=== PATIENT | female | born 1955 | race Caucasian/White ===

== ENCOUNTER 2024-06-19 17:27 | Emergency (ER) | payer MEDICARE, SELFPAY ==
--- OUTSIDE RECORDS SUMMARY | 2024-06-19 17:30 | XMS_ITS | Patient Health Summary ---
Author Organization [facility] Address [address] [place] [address] Care Team Providers Care Card Feeder Name Role Phone Zainab Anna DO Primary Care Provider [phone] Note from [facility],non-owned Affiliates and Associated Physician Practices is amultiple site organization consisting of ambulatory clinics and hospital sitesin [place], [place], [place] and [place]. This disclosure is being madepursuant to the Care Everywhere program and may not contain all information available regarding this patient. Last updated 18.[facility] Allergies * Cefuroxime(Rash) -Medium Criticality * Latex(Swelling) * Levofloxacin(Itching) -Medium Criticality * Levalbuterol Hcl(Other) Medications * Be aware that medications may not be up to date on this document. Alwaysverify current medications with the patient. * zolpidem (AMBIEN) 10 MG tablet Take 10 mg by mouth nightly as needed for Insomnia * fluticasone-vilanterol (BREO ELLIPTA) 200-25 MCG/INH inhaler Inhale 1 puff by mouth once daily * mometasone (NASONEX) 50 MCG/ACT nasal spray [employer] 1 spray into each nostril 2 times daily * amiodarone (CORDARONE) 200 MG tablet Take 200 mg by mouth 2 times daily * apixaban (ELIQUIS) 5 MG tablet Take 5 mg by mouth 2 times daily * tiotropium (SPIRIVA) 18 MCG inhalation capsule Inhale 1 capsule by mouth once daily * PARoxetine (PAXIL) 40 MG tablet Take 40 mg by mouth once daily * pravastatin (PRAVACHOL) 40 MG tablet Take 40 mg by mouth at bedtime * dilTIAZem coated beads 24hr (CARTIA XT) 300 MG capsule Take 300 mg by mouth once daily * clonazePAM (KLONOPIN) 0.5 MG tablet Take 0.5 mg by mouth at bedtime * albuterol (PROVENTIL;VENTOLIN) (5 MG/ML) 0.5% nebulizer solution Inhale 2.5 mg by mouth 4 times daily as needed for Shortness of Breath or Wheezing 2.5/3ml * benralizumab (FASENRA) injection Inject 30 mg subcutaneously once Social History Tobacco Use Types Packs/Day Years Used Date Smoking Tobacco: Never Assessed Sex and Gender Information Value Date Recorded Sex Assigned at Not on file Gender Identity Not on file Sexual Orientation Not on file Last Filed Vital Signs Vital Sign Reading Time Taken Comments Blood Pressure 112/67 05/14/2020 9:10 AM OUTREACH COUNSELOR Pulse 65 05/14/2020 9:10 AM OUTREACH COUNSELOR Temperature 37.2 ??C (98.9 ??F) 05/14/2020 8:20 AM CS T Respiratory Rate 16 05/14/2020 9:10 AM OUTREACH COUNSELOR Oxygen Saturation 98% 05/14/2020 9:10 AM OUTREACH COUNSELOR Inhaled Oxygen Concentration - - Weight 148.1 kg (326 lb 6.4 oz) 05/14/2020 8:20 AM OUTREACH COUNSELOR Height 170.2 cm (5' 7 ) 05/14/2020 8:20 AM OUTREACH COUNSELOR Body Mass Index 51.12 05/14/2020 8:20 AM OUTREACH COUNSELOR Procedures * CARDIAC PROCEDURE ORDER(Performed 05/15/2020) * CARDIAC RHYTHM STRIP ORDER(Performed 05/15/2020) * CARDIAC EKG ORDER(Performed 05/15/2020) * EKG 12-LEAD(Performed 05/14/2020) Performed for Persistent atrial fibrillation (HCC) * CARDIAC CATH(Performed 05/14/2020) * CARDIAC CATH CONSULT(Performed 05/14/2020) * GROSS + MICRO EXAM(Performed 06/24/1998) Results * CARDIAC RHYTHM STRIP ORDER (05/15/2020 6:41 PM OUTREACH COUNSELOR) Narrative 05/15/2020 6:41 PM OUTREACH COUNSELOR Ordered by an unspecified provider. Scanned Document CARDIAC SERVICES ORD ERABLES * CARDIAC PROCEDURE ORDER (05/15/2020 6:41 PM OUTREACH COUNSELOR) Narrative 05/15/2020 6:41 PM OUTREACH COUNSELOR Ordered by an unspecified provider. Scanned Document CARDIAC SERVICES ORD ERABLES * CARDIAC EKG ORDER (05/15/2020 6:41 PM OUTREACH COUNSELOR) Narrative 05/15/2020 6:41 PM OUTREACH COUNSELOR Ordered by an unspecified provider. Scanned Document CARDIAC SERVICES ORD ERABLES * EKG 12-LEAD (05/14/2020 8:33 AM OUTREACH COUNSELOR) Ventricular Rate 73 BPM [facility] Atrial Rate 73 BPM [facility] P-R Interval 204 ms [facility] QRS Duration ms 90 ms [facility] Q-T Interval ms 456 ms [facility] QTC Calculation (Bezet) 502 ms [facility] Calculated P Leonard 47 degrees [facility] Calculated R Leonard 54 degrees [facility] Calculated T Leonard 57 degrees [facility] Interpretation EKG Normal sinus rhythm Nonspecific ST abnormality Prolonged QT Abnormal ECG No previous ECGs available Confirmed by MORRIS AKINS MD ([id number]) on 05/15/2020 10:20:17 AM [facility] MUSE 05/14/2020 8:33 AM OUTREACH COUNSELOR 05/15/2020 10:20 AM OUTREACH COUNSELOR Brody Kemp DO ECG ORDERABLES Performing Organization Address [facility] Co de Phone Number [facility] MUSE * CARDIAC CATH PROCEDURE (05/14/2020 8:31 AM OUTREACH COUNSELOR) Narrative [facility] MEDQUIST - 05/14/2020 8:31 AM OUTREACH COUNSELOR Brody Kemp, DO ? 05/14/2020 ??8:32 AM 200 J synch via paddles, successful to sinus rhythm No complications Brody Kemp DO CARDIAC SERVICES ORDERABLES Performing Organization Address City/[facility]/ZIP Co de Phone Number [facility] * CARDIAC CATH CONSULT (for Epic Reporting) (05/14/2020 8:15 AM OUTREACH COUNSELOR) 05/14/2020 8:15 AM OUTREACH COUNSELOR Narrative [facility] - 05/14/2020 8:31 AM OUTREACH COUNSELOR Brody Kemp, DO ? 05/14/2020 ??8:32 AM 200 J synch via paddles, successful to sinus rhythm No complications Brody Kemp DO ECHO ORDERABLES [facility] * GROSS + MICRO EXAM (06/24/1998 12:00 AM OUTREACH COUNSELOR) Result CASE NUMBER [id number] Comment: ORDERING PHYSICIAN ??BRADEN LOBO SPECIMEN TYPE ?Colon,Biopsy-left Surgeon ?BRADEN LOBO M.D. Gross Exam ? DR. ANNE CHA M.D. Gross Report ? INDICATION FOR PROCEDURE ??ABDOMINAL PAIN OPERATION ??COLONOSCOPY SPECIMEN ??LEFT COLON, RIGHT COLON GROSS TWO CONTAINERS. 1. THE SPECIMEN IS RECEIVED IN A CONTAINER LABELED LEFT COLON. THE SPECIMEN CONSISTS OF THREE GREENBERG SOFT PIECES OF TISSUE EACH MEASURING 2 X 2 X 1 MM. THE SPECIMEN IS ALL SUBMITTED IN CASSETTE A. 2. THE SPECIMEN IS RECEIVED IN A CONTAINER LABELED RIGHT COLON. THE SPECIMEN CONSISTS OF SINGLE GREENBERG SOFT PIECE OF TISSUE WHICH MEASURES 2 X 2 X 1 MM. ??THE SPECIMEN IS ALL SUBMITTED IN CASSETTE B. [facility] MICROSCOPIC EXAM ? MICROSCOPIC ?? 1. SECTIONS FROM THE LEFT COLONIC BIOPSIES DISPLAY STRAIGHT TUBULAR GLANDS WITH HYPERCHROMATIC NUCLEI AND LOSS OF THE GOBLET CELL POPULATION. 2. SECTIONS FROM THE RIGHT COLONIC BIOPSIES DISPLAY A MILD, MULTIFOCAL INCREASE IN THE CHRONIC INFLAMMATORY CELL POPULATION WITHIN THE LAMINA PROPRIA. CRYPT ARCHITECTURE IS INTACT. THERE ARE NO GRANULOMATOUS INFILTRATES OR CRYPT ABSCESSES. ULCERATION AND NEOPLASIA ARE ABSENT. DIAGNOSIS ? DIAGNOSIS [1] LEFT COLON, ENDOSCOPIC BIOPSIES ? - TUBULAR ADENOMA, WITH MILD ATYPIA [2] RIGHT COLON, ENDOSCOPIC BIOPSY ? - MILD, NON-SPECIFIC CHRONIC INFLAMM[place] [facility] [place] [id number] X2 Released By ?ANNE CHA MISCELLANEOUS SAMPLE S / Unknown 06/24/1998 06/24/1998 12:08 PM OUTREACH COUNSELOR Historical Provider MD LAB - PATHOLOGY/C YTOLOGY ORDERABLES Care Teams Card Feeder Relationship Specialty Start Date End Date Zainab Anna DO PCP - General Family Medicine 05/14/20
--- OUTSIDE RECORDS SUMMARY | 2024-06-19 17:30 | XMS_ITS | Clinical Summary ---
Author Organization 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 Note: Unchanged Female Pelvic Pain 11/05/2014 JEOL LEHMAN MD Active Last Documented On 11/05/2014 3:59PM ; [facility] Note: Unchanged Cervical Dysplasia 11/05/2014 JOEL LEHMAN MD Active Last Documented On 11/05/2014 3:59PM ; [facility] Note: Unchanged - with Dr Walton: in the 9 0's: colp/bx/cone bx/ then freezing: nl since then Colon Cancer 11/05/2014 JOEL DOLL MD Active Last Documented On 11/05/2014 3:59PM ; [facility] Note: Unchanged - in 2001: no chemo or r adiation Breast Fibrocystic Disease 11/05/2014 JOEL DOLL MD Active Last Documented On 11/05/2014 3:59PM ; [facility] Note: Unchanged 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 JOEL FERNÁNDEZ MD Active Last Documented On 11/05/2014 3:59PM ; [facility] Note: Unchanged Plan of Treatment No Plan of Treatment Recorded Assessments Includes: Assessments from this encounter No Assessments Recorded Medical Equipment - Implanted Devices Includes: Current Devices No Medical Equipment Recorded Medications Includes: Medications discussed during this encounter and other current Medications Current Medications (continue as prescribed) Albuterol Sulfate 1.25MG/3ML Inhalation Nebuliza tion solution 08/11/2017 Provider: Diagnosis: Last Documented On 8 10:27AM By MAMADOU BURKS ; [facility] Paxil 40MG Oral Tablet 03/01/2017 Provider: Diagnosis: Last Documented On 7 2:51PM By MAMADOU BURKS ; [facility] Breo Ellipta 200-25MCG/INH I nhalation Aerosol Powder Breath Activated 03/01/2017 Provider: Diagnosis: Last Documented On 7 2:52PM By MAMADOU BURKS ; [facility] Ambien 10MG Oral Tablet 03/01/2017 Provider: Diagnosis: Last Documented On 7 2:53PM By MAMADOU BURKS ; [facility] Bentyl 20MG Oral Tablet 03/01/2017 Provider: Diagnosis: takes 40mg Last Documented On 7 2:54PM By MAMADOU BURKS ; [facility] Vicodin 5-300MG Oral Tablet 03/01/2017 Provider: Diagnosis: Last Documented On 7 2:54PM By MAMADOU BURKS ; [facility] PriLOSEC OTC 20MG Oral Tablet Delayed Release 03/01/20 Provider: Diagnosis: Last Documented On 7 2:55PM By MAMADOU BURKS ; [facility] Mometasone Furoate 0.1% External Ointment 03/01/2017 Provider: Diagnosis: Last Documented On 7 2:56PM By MAMADOU BURKS ; [facility] Ibuprofen 600MG Oral Tablet 03/01/2017 Provider: Diagnosis: prn Last Documented On 7 2:56PM By MAMADOU BURKS ; [facility] PARoxetine HCl 40 MG Tablet 11/03/2014 Provider: Diagnosis: Last Documented On 5 2:48PM By NEGRITA COTTER LPN ; [facility] ALPRAZolam 0.5 MG Tablet 10/17/2014 Provider: Diagnosis: Last Documented On 5 2:48PM By NEGRITA COTTER LPN ; [facility] Pravastatin Sodium 40 MG Tablet 08/12/2014 Provider: Diagnosis: Last Documented On 5 2:48PM By NEGRITA COTTER LPN ; [facility] Medications Administered Includes: Administered Medications from this encounter No Administered Medications Recorded Results Includes: Results discussed during this encounter No Results Recorded For Specified Dates History of Present Illness Includes: History of Present Illness from this encounter No History of Present Illness Recorded Social History No Social History Recorded - Smoking Status Unknown Medical History Includes: Medical History addressed during this encounter No Medical History Recorded Family History Includes: Family History addressed during this encounter No Family History Recorded Review of Systems Includes: Review of Systems from this encounter No Review of Systems Recorded Mental Status Includes: Mental Status from this encounter No Mental Status Recorded Functional Status Includes: Functional Status from this encounter No Functional Status Recorded Physical Exam Includes: Physical Exam from this encounter No Physical Exam Recorded Allergies Includes: Active Allergies Substance Type Reaction Onset Date Resolved Date Statu s Zithromax Allergy 11/05/2014 Active Last Documented On 8 11:03AM ; [facility] Xopenex Concentrate Allergy 11/05/2014 Active Last Documented On 8 11:03AM ; [facility] Quinolones Allergy 08/05/2017 Active Last Documented On 8 12:00PM ; [facility] Levaquin Allergy 11/05/2014 Active Last Documented On 8 11:03AM ; [facility] Latex Allergy 11/05/2014 Active Last Documented On 8 11:03AM ; [facility] Effexor XR Allergy 03/01/2017 Active Last Documented On 8 11:03AM ; [facility] Ceftin Allergy 11/05/2014 Active Last Documented On 8 11:03AM ; [facility] Encounters Encounter Provider Location Date Check-In Time Check-Out Time Diagnosis PELVIC W/TVT SARAH RO RN NP [facility] ORE FEEDER 8 12:53PM 1:19PM Insurance Includes: Active Insurance Policies Plan Name Member ID Group # Subscriber Relationship Effect matthew Dates 1 - [facility] [place] [employer] [place] [id number] LEAH Rodriguez Clinical Notes Includes: Clinical Notes from this encounter No Clinical Notes Recorded
--- OUTSIDE RECORDS SUMMARY | 2024-06-19 17:30 | XMS_ITS ---
Author Organization [facility] Address [address] [place] [address] Phone Care Team Providers Care Hydroelectric Systems Technician Name Role Phone JOEL DOLL MD Unavailable [phone] Problems Includes: Active, inactive, and resolved Problems All Visits Onset Date Resolved Date Provider Condition S tatus Ventral Hernia 08/11/2017 JOEL Silverio MD Active Last Documented On 08/11/2017 11:41AM ; [facility] Note: Unchanged Female Pelvic Pain 11/05/2014 JOEL LEHMAN MD Active Last Documented On 11/05/2014 3:59PM ; [facility] Note: Unchanged Cervical Dysplasia 11/05/2014 JOEL LEHMAN MD Active Last Documented On 11/05/2014 3:59PM ; [facility] Note: Unchanged - with Dr Walton: in the 9 0's: colp/bx/cone bx/ then freezing: nl since then Colon Cancer 11/05/2014 JOEL DOLL MD Active Last Documented On 11/05/2014 3:59PM ; [facility] Note: Unchanged - in 2001: no chemo or r adiation Breast Fibrocystic Disease 11/05/2014 JOEL DOLL MD Active Last Documented On 11/05/2014 3:59PM ; [facility] Note: Unchanged 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 JOEL FERNÁNDEZ MD Active Last Documented On 11/05/2014 3:59PM ; [facility] Note: Unchanged Plan of Treatment Findings Encounter Date Ordered Clinical summary pro vided to patient PROBLEM VISIT with SARAH CLAROS BC 08/03/2017 Last Documented On 8 12:02PM ; [facility] She will let us know if she has other problems in the meantime ANNUAL READERS' ADVISORY SERVICE LIBRARIAN EXAM with JOEL DOLL MD 03/01/2017 Last Documented On 7 3:43PM ; [facility] Ordered follow-up visit 1 ye ar or as needed ANNUAL READERS' ADVISORY SERVICE LIBRARIAN EXAM with JOEL DOLL MD 03/01/2017 Last Documented On 7 3:43PM ; [facility] She will let us know if she has other problems in the meantime 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 GENERAL EXAM with JOEL DOLL MD 11/05/2014 Last Documented On 5 4:02PM ; [facility] Ordered follow-up visit 1 ye ar or as needed [employer] GENERAL EXAM with JOEL DOLL MD 11/05/2014 Last Documented On 5 4:02PM ; [facility] Instructions to patient ER/ Pain Precautions pyelone phritis precautions given Last Documented On 8 11:46AM ; [facility] Instructions for patient : B reast Self Exam discussed Last Documented On 7 3:22PM ; [facility] Instructions for patient : B reast Self Exam discussed Last Documented On 5 3:25PM ; [facility] Education and Decision Aids were provided during visit for: STD screening offered and de clined Last Documented On 7 3:22PM ; [facility] Bone Mineral Density Screeni ng guidelines reviewed : will rpt in 2019 Last Documented On 7 3:27PM ; [facility] Patient Education: Daily pascale cium and vitamin D Last Documented On 7 3:22PM ; [facility] Patient Education: weight be aring exercise Last Documented On 7 3:22PM ; [facility] Colonoscopy screening guidel gama discussed Last Documented On 7 3:22PM ; [facility] STD screening offered and de clined Last Documented On 5 3:25PM ; [facility] Bone Mineral Density Screeni ng guidelines reviewed Last Documented On 5 3:25PM ; [facility] Patient Education: Daily pascale cium and vitamin D Last Documented On 5 3:25PM ; [facility] Patient Education: weight be aring exercise Last Documented On 5 3:25PM ; [facility] Colonoscopy screening guidel gama discussed Last Documented On 5 3:25PM ; [facility] Assessments Includes: Assessments for all patient encounters Findings Encounter Date Ventral hernia PROBLEM VISIT with JOEL Silverio MD 08/11/2017 Last Documented On 8 11:42AM ; [facility] Female pelvic pain PROBLEM VISIT with SARAH YORK RN [facility] 08/03/2017 Last Documented On 8 12:02PM ; [facility] Vaginitis PROBLEM VISIT with SARAH RO RN [facility] 08/03/2017 Last Documented On 8 12:02PM ; [facility] Cervical stenosis/stricture ANNUAL READERS' ADVISORY SERVICE LIBRARIAN EXAM with JOEL DOLL MD 03/01/2017 Last Documented On 7 3:43PM ; [facility] Fibrocystic disease of breast ANNUAL READERS' ADVISORY SERVICE LIBRARIAN EXAM wi JOEL DOLL MD 03/01/2017 Last Documented On 7 3:43PM ; [facility] NORMAL FEMALE EXAM ANNU[employer]ERS' ADVISORY SERVICE LIBRARIAN EXAM with JOEL FERNÁNDEZ MD 03/01/2017 Last Documented On 7 3:43PM ; [facility] Screening Malig. Neoplasm Rectum ANNUAL READERS' ADVISORY SERVICE LIBRARIAN EXAM with JOEL DOLL MD 03/01/2017 Last Documented On 7 3:43PM ; [facility] Cervical stenosis/stricture 2 WK CK-UP with JOEL DOLL MD 12/18/2014 Last Documented On 5 2:23PM ; [facility] Female pelvic pain 2 WK CK-UP with JOEL Silverio MD 12/18/2014 Last Documented On 5 2:23PM ; [facility] Female pelvic pain [employer] GENERAL EXAM with JOEL CRUZ MD 11/05/2014 Last Documented On 5 4:02PM ; [facility] Fibrocystic disease of breast [employer] GENERAL EXAM with JOEL DOLL MD 11/05/2014 Last Documented On 5 4:02PM ; [facility] NORMAL FEMALE EXAM [employer] GENERAL EXAM with JOEL CRUZ MD 11/05/2014 Last Documented On 5 4:02PM ; [facility] Screening Malig. Neoplasm Rectum [employer]ER GENERAL EXAM wi th JOEL DOLL MD 11/05/2014 Last Documented On 5 4:02PM ; [facility] Stenosis [employer]ER GENERAL EXAM with JOEL DOLL MD 11/05/2014 Last Documented On 5 4:02PM ; [facility] Instructions Includes: Instructions for all patient encounters Instructions to patient ER/ Pain Precautions pyelone phritis precautions given Last Documented On 8 11:46AM ; [facility] Instructions for patient : B reast Self Exam discussed Last Documented On 7 3:22PM ; [facility] Instructions for patient : B reast Self Exam discussed Last Documented On 5 3:25PM ; [facility] Education and Decision Aids were provided during visit for: STD screening offered and de clined Last Documented On 7 3:22PM ; [facility] Bone Mineral Density Screeni ng guidelines reviewed : will rpt in 2019 Last Documented On 7 3:27PM ; [facility] Patient Education: Daily pascale cium and vitamin D Last Documented On 7 3:22PM ; [facility] Patient Education: weight be aring exercise Last Documented On 7 3:22PM ; [facility] Colonoscopy screening guidel gama discussed Last Documented On 7 3:22PM ; [facility] STD screening offered and de clined Last Documented On 5 3:25PM ; [facility] Bone Mineral Density Screeni ng guidelines reviewed Last Documented On 5 3:25PM ; [facility] Patient Education: Daily pascale cium and vitamin D Last Documented On 5 3:25PM ; [facility] Patient Education: weight be aring exercise Last Documented On 5 3:25PM ; [facility] Colonoscopy screening guidel gama discussed Last Documented On 5 3:25PM ; [facility] Medical Equipment - Implanted Devices Includes: Current and historical Devices No Medical Equipment Recorded Medications Includes: Current and historical Medications Current Medications (continue as prescribed) Albuterol Sulfate 1.25MG/3ML Inhalation Nebuliza tion solution 08/11/2017 Provider: Diagnosis: Last Documented On 8 10:27AM By MAMADOU BURKS ; [facility] Paxil 40MG Oral Tablet 03/01/2017 Provider: Diagnosis: Last Documented On 7 2:51PM By MAMADOU BURKS ; [facility] Breo Ellipta 200-25MCG/INH I nhalation Aerosol Powder Breath Activated 03/01/2017 Provider: Diagnosis: Last Documented On 7 2:52PM By MAMADOU BURKS ; [facility] Ambien 10MG Oral Tablet 03/01/2017 Provider: Diagnosis: Last Documented On 7 2:53PM By MAMADOU BURKS ; [facility] Bentyl 20MG Oral Tablet 03/01/2017 Provider: Diagnosis: takes 40mg Last Documented On 7 2:54PM By MAMADOU BURKS ; [facility] Vicodin 5-300MG Oral Tablet 03/01/2017 Provider: Diagnosis: Last Documented On 7 2:54PM By MAMADOU BURKS ; [facility] PriLOSEC OTC 20MG Oral Tablet Delayed Release 03/01/20 Provider: Diagnosis: Last Documented On 7 2:55PM By MAMADOU BURKS ; [facility] Mometasone Furoate 0.1% External Ointment 03/01/2017 Provider: Diagnosis: Last Documented On 7 2:56PM By MAMADOU BURKS ; [facility] Ibuprofen 600MG Oral Tablet 03/01/2017 Provider: Diagnosis: prn Last Documented On 7 2:56PM By MAMADOU BURKS ; [facility] PARoxetine HCl 40 MG Tablet 11/03/2014 Provider: Diagnosis: Last Documented On 5 2:48PM By NEGRITA COTTER LPN ; [facility] ALPRAZolam 0.5 MG Tablet 10/17/2014 Provider: Diagnosis: Last Documented On 5 2:48PM By NEGRITA COTTER LPN ; [facility] Pravastatin Sodium 40 MG Tablet 08/12/2014 Provider: Diagnosis: Last Documented On 5 2:48PM By NEGRITA COTTER LPN ; [facility] Past Medications on file Clindamycin Phosphate 2% Vaginal Cream 08/05/2017 - 08/12/2017 Provider: SARAH RO RN NAREN Diagnosis: Acute vaginitis as directed 1 CHRISTY IN VAGINA EVERY NIGHT X 7 Last Documented On 8 12:16PM By SARAH CRISTOBAL ; [facility] Ciprofloxacin HCl 500MG Oral Tablet 08/03/2017 - 08/08/2017 Provider: SARAH CLAROS Diagnosis: Acute vaginitis One tablet twice a day TAKE DIRECTED W/FOOD Last Documented On 8 11:44AM By SARAH BLANDON ; [facility] Gabapentin 600MG Oral Tablet 03/01/2017 - 08/11/2017 P rovider: Diagnosis: up to tid a day Last Documented On 8 10:26AM By MAMADOU BURKS ; [facility] Spiriva HandiHaler 18 MCG Capsule 12/18/2014 - 018 Provider: Diagnosis: once daily Last Documented On 8 10:26AM By MAMADOU BURKS ; [facility] Zolpidem Tartrate 10 MG Tablet 10/14/2014 - 08/11/2017 Provider: Diagnosis: Last Documented On 8 10:26AM By MAMADOU BURKS ; [facility] Atrovent HFA 17 MCG/ACT Aerosol, solution 08/31/2014 - 03/01/2017 Provider: Diagnosis: Last Documented On 7 2:52PM By MAMADOU BURKS ; [facility] Ipratropium-Albuterol 0.5-2.5 (3) MG/3ML IN SOLN 04/20/2014 - 11/05/2014 Provider: Diagnosis: Last Documented On 5 2:46PM By NEGRITA COTTER LPN ; [facility] Zolpidem Tartrate 10 MG OR TABS 04/15/2014 - 5 Provider: Diagnosis: Last Documented On 5 2:46PM By NEGRITA COTTER LPN ; [facility] Pravastatin Sodium 40 MG OR TABS 04/15/2014 - 11/06/19 15 Provider: Diagnosis: Last Documented On 5 2:46PM By NEGRITA COTTER LPN ; [facility] PARoxetine HCl 40 MG OR TABS 04/09/2014 - 11/05/2014 P rofredder: Diagnosis: Last Documented On 5 2:47PM By NEGRITA COTTER LPN ; [facility] Medications Administered Includes: Administered Medications in patient's chart No Administered Medications Recorded Results Includes: Results from 06/19/2023 through 06/19/2024 No Results Recorded For Specified Dates History of Present Illness History of Present Illness not supported for this document type No History of Present Illness Recorded Social History Description Last Updated In monogamous relationship 08/03/2017 Last Documented On 8 12:02PM ; [facility] Marital history 08/03/2017 Last Documented On 8 12:02PM ; [facility] Not exercising regularly 08/03/2017 Last Documented On 8 12:02PM ; [facility] Not using alcohol 08/03/2017 Last Documented On 8 12:02PM ; [facility] Not using drugs 08/03/2017 Last Documented On 8 12:02PM ; [facility] Sexually active with 1 partners in the l ast year 08/03/2017 Last Documented On 8 12:02PM ; [facility] Smoking status : Never smoker 08/03/2017 Last Documented On 8 12:02PM ; [facility] Procedures and Surgical History Surgical History Last Updated Previous colposcopy 08/11/2017 Last Documented On 8 11:42AM ; [facility] Dilation + Curettage ---Jen block in about 2004 with hysteroscopy---? not sure why 11/05/2014 Last Documented On 5 4:02PM ; [facility] Surgical / procedural histor y 1998 Lt knee ACL reconstruction ~1999 Rt knee repair - lateral release ~Lt plantar faciotomy ~2001 Lt hemicolectomy also left ovary removed due to Dr Monckton nicked it during hemicolectomy ~2010 repair of abdominal hernia with mesh x 2 ~2010 bowel resection 11/05/2014 Last Documented On 5 4:02PM ; [facility] History of tubal ligation 1982 5 Last Documented On 5 4:02PM ; [facility] Medical History Includes: Medical History in patient's chart Description Last Updated Last pap smear date 03/02/2017 8 Last Documented On 8 11:42AM ; [facility] History of irritable bowel syndrome 07/15 Last Documented On 8 12:02PM ; [facility] History of complete colonoscopy 03/17/20 17 polyps repear in 3 years, [facility] 08/03/2017 Last Documented On 8 12:02PM ; [facility] LMP: 201008/03/2017 Last Documented On 8 12:02PM ; [facility] History of a DXA of the lateral lumbar s pine was performed 11/27/2014 08/03/2017 Last Documented On 8 12:02PM ; [facility] History of Pap smear done 03/02/2017 Last Documented On 8 12:02PM ; [facility] Depression 03/01/2017 Last Documented On 7 3:43PM ; [facility] A colonoscopy was performed scheduled fo r 03/17/17 03/01/2017 Last Documented On 7 3:43PM ; [facility] Last mammogram date: 09/23/2014 7 Last Documented On 7 3:43PM ; [facility] Patient recently had a dexa scan 11/27/2014 -- years ago when on prednisone: 'it was good' 03/01/2017 Last Documented On 7 3:43PM ; [facility] Result: normal 03/01/2017 Last Documented On 7 3:43PM ; [facility] Result: normal 03/01/2017 Last Documented On 7 3:43PM ; [facility] Anxiety 11/05/2014 Last Documented On 5 4:02PM ; [facility] Colon cancer in 2002: no chemo or radiat ion 11/05/2014 Last Documented On 5 4:02PM ; [facility] 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 10/15 Last Documented On 5 4:02PM ; [facility] Cervical dysplasia with Dr Sanders lbi: in the s: colp/bx/cone bx/ then freezing: nl since then 11/05/2014 Last Documented On 5 4:02PM ; [facility] Aborta 1 at 6wks with D&C 11/05/2014 Last Documented On 5 4:02PM ; [facility] Vaginal delivery x 3: 6 8lb 7oz male hemorrhaged ~11/15/77 7lb 8oz male ~09/25/81 7lb 6oz female ~3rd child at age 16 of avelrhabdomyosarcoma 11/05/2014 Last Documented On 5 4:02PM ; [facility] History of urinary tract infection 11/05 Last Documented On 5 4:02PM ; [facility] History of asthma 11/05/2014 Last Documented On 5 4:02PM ; [facility] History of fibrocystic disease of breast 11/05/2014 Last Documented On 5 4:02PM ; [facility] History of hyperlipidemia 11/05/2014 Last Documented On 5 4:02PM ; [facility] History of thyroid disorder nodules 10/15 Last Documented On 5 4:02PM ; [facility] Sexually active 11/05/2014 Last Documented On 5 4:02PM ; [facility] 4 11/05/2014 Last Documented On 5 4:02PM ; [facility] History of screening mammogram was perfo rmed 09/23/2014 11/05/2014 Last Documented On 5 4:02PM ; [facility] Para 3 11/05/2014 Last Documented On 5 4:02PM ; [facility] Family History Includes: Family History in patient's chart Description Last Updated Maternal aunt's history of F amily history of breast neoplasm malignant mat aunt in her 60's 03/01/2017 Last Documented On 7 3:43PM ; [facility] Family history of breast neoplasm malign ant mat aunt in her 60's 11/05/2014 Last Documented On 5 4:02PM ; [facility] Family history of diabetes mellitus Moth er, brother, & MGF 11/05/2014 Last Documented On 5 4:02PM ; [facility] Family history of heart disease parents 11/05/2014 Last Documented On 5 4:02PM ; [facility] Family history of hypercholesterolemia M other & brothers 11/05/2014 Last Documented On 5 4:02PM ; [facility] Family history of hypertension parents 0 11/05/2014 Last Documented On 5 4:02PM ; [facility] Review of Systems Review of Systems not supported for this document type No Review of Systems Recorded Mental Status Description Anxiety Functional Status No Functional Status Recorded Physical Exam Physical Exam not supported for this document type No Physical Exam Recorded Allergies Includes: Active, inactive, and resolved Allergies Substance Type Reaction Onset Date Resolved Date Statu s Zithromax Allergy 11/05/2014 Active Last Documented On 8 11:03AM ; [facility] Xopenex Concentrate Allergy 11/05/2014 Active Last Documented On 8 11:03AM ; [facility] Quinolones Allergy 08/05/2017 Active Last Documented On 8 12:00PM ; [facility] Levaquin Allergy 11/05/2014 Active Last Documented On 8 11:03AM ; [facility] Latex Allergy 11/05/2014 Active Last Documented On 8 11:03AM ; [facility] Effexor XR Allergy 03/01/2017 Active Last Documented On 8 11:03AM ; [facility] Ceftin Allergy 11/05/2014 Active Last Documented On 8 11:03AM ; [facility] Insurance Includes: Active Insurance Policies Plan Name Member ID Group # Subscriber Relationship Effect matthew Dates 1 - [facility] [id number] LEAH LAZO Self Clinical Notes Includes: Signed Clinical Notes starting from 06/04/2022 No Clinical Notes Recorded
--- OUTSIDE RECORDS SUMMARY | 2024-06-19 17:30 | XMS_ITS | Clinical Summary ---
Author Organization [facility] Address [address] [place] [address] Phone Care Team Providers Care Color Control Supervisor Name Role Phone JOEL DOLL MD Unavailable [phone] Reason for Visit and Chief Complaint * PHONE CALL Problems Includes: Problems addressed during this encounter and other active Problems Current Visit Onset Date Resolved Date Provider Conditio n Status Cervical Dysplasia 11/05/2014 JOEL DOLL MD Active Last Documented On 11/05/2014 3:59PM ; [facility] Note: Unchanged - with Dr Walton: in the 9 0's: colp/bx/cone bx/ then freezing: nl since then Colon Cancer 11/05/2014 JOEL DOLL MD Activ e Last Documented On 11/05/2014 3:59PM ; [facility] Note: Unchanged - in 2001: no chemo or r adiation Past Visits Onset Date Resolved Date Provider Condition Status Ventral Hernia 08/11/2017 JOEL DOLL MD Act matthew Last Documented On 08/11/2017 11:41AM ; [facility] Note: Unchanged Female Pelvic Pain 11/05/2014 JOEL DOLL MD Active Last Documented On 11/05/2014 3:59PM ; [facility] Note: Unchanged Breast Fibrocystic Disease 11/05/2014 JOEL DOLL MD Active Last Documented On 11/05/2014 3:59PM ; [facility] Note: Unchanged 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 JOEL Lam Active Last Documented On 11/05/2014 3:59PM ; [facility] Note: Unchanged Plan of Treatment No Plan of Treatment Recorded Assessments Includes: Assessments from this encounter No Assessments Recorded Medical Equipment - Implanted Devices Includes: Current Devices No Medical Equipment Recorded Medications Includes: Medications discussed during this encounter and other current Medications New / Renewed during this visit SARAH CLAROS BC on 08/05/2017 Clindamycin Phosphate 2% Vaginal Cream Provider: SARAH RO RN WHLloyd P 7 day supply: 1 tube, 0 refills Diagnosis: Acute vaginitis as directed 1 CHRISTY IN VAGINA EVERY NIGHT X 7 Pharmacy: [address], [address] - Last Documented On 8 12:16PM By SARAH CLAROS- ; [facility] Current Medications (continue as prescribed) Albuterol Sulfate 1.25MG/3ML Inhalation Nebuliza tion solution 08/11/2017 Provider: Diagnosis: Last Documented On 8 10:27AM By MAMADOU BURKS ; [facility] Paxil 40MG Oral Tablet 03/01/2017 Provider: Diagnosis: Last Documented On 7 2:51PM By MAMADOU BURKS ; [facility] Breo Ellipta 200-25MCG/INH I nhalation Aerosol Powder Breath Activated 03/01/2017 Provider: Diagnosis: Last Documented On 7 2:52PM By MAMADOU BURKS ; [facility] Ambien 10MG Oral Tablet 03/01/2017 Provider: Diagnosis: Last Documented On 7 2:53PM By MAMADOU BURKS ; [facility] Bentyl 20MG Oral Tablet 03/01/2017 Provider: Diagnosis: takes 40mg Last Documented On 7 2:54PM By MAMADOU BURKS ; [facility] Vicodin 5-300MG Oral Tablet 03/01/2017 Provider: Diagnosis: Last Documented On 7 2:54PM By MAMADOU BURKS ; [facility] PriLOSEC OTC 20MG Oral Tablet Delayed Release 03/01/20 17 Provider: Diagnosis: Last Documented On 7 2:55PM By MAMADOU BURKS ; [facility] Mometasone Furoate 0.1% External Ointment 03/01/2017 Provider: Diagnosis: Last Documented On 7 2:56PM By MAMADOU BURKS ; [facility] Ibuprofen 600MG Oral Tablet 03/01/2017 Provider: Diagnosis: prn Last Documented On 7 2:56PM By MAMADOU BURKS ; [facility] PARoxetine HCl 40 MG Tablet 11/03/2014 Provider: Diagnosis: Last Documented On 5 2:48PM By NEGRITA COTTER LPN ; [facility] ALPRAZolam 0.5 MG Tablet 10/17/2014 Provider: Diagnosis: Last Documented On 5 2:48PM By NEGRITA COTTER LPN ; [facility] Pravastatin Sodium 40 MG Tablet 08/12/2014 Provider: Diagnosis: Last Documented On 5 2:48PM By NEGRITA COTTER LPN ; [facility] Past Medications on file Ciprofloxacin HCl 500MG Oral Tablet 08/03/2017 - 08/08/2017 Provider: SARAH RO RN NAREN Diagnosis: Acute vaginitis One tablet twice a day TAKE DIRECTED W/FOOD Last Documented On 8 11:44AM By SARAH CLAROS- ; [facility] Medications Administered Includes: Administered Medications from this encounter No Administered Medications Recorded Results Includes: Results discussed during this encounter No Results Recorded For Specified Dates History of Present Illness Includes: History of Present Illness from this encounter No History of Present Illness Recorded Social History No Social History Recorded - Smoking Status Unknown Procedures and Surgical History Surgical History Last Updated Dilation + Curettage ---Jen block in about 2004 with hysteroscopy---? not sure why 11/05/2014 Last Documented On 8 10:53AM ; [facility] Surgical / procedural histor y 1998 Lt knee ACL reconstruction ~1999 Rt knee repair - lateral release ~Lt plantar faciotomy ~2001 Lt hemicolectomy also left ovary removed due to Dr Schmitz nicked it during hemicolectomy ~2010 repair of abdominal hernia with mesh x 2 ~2011 bowel resection 11/05/2014 Last Documented On 8 10:53AM ; [facility] History of tubal ligation 1982 5 Last Documented On 8 10:53AM ; [facility] Medical History Includes: Medical History addressed during this encounter Description Last Updated Last pap smear date 11/05/2014 08/11/2017 Last Documented On 8 10:53AM ; [facility] History of irritable bowel syndrome 07/15 Last Documented On 8 10:53AM ; [facility] History of complete colonoscopy 03/17/20 17 polyps repear in 3 years, [facility] 08/03/2017 Last Documented On 8 10:53AM ; [facility] LMP: 2011 08/03/2017 Last Documented On 8 10:53AM ; [facility] History of a DXA of the lateral lumbar s pine was performed 11/27/2014 08/03/2017 Last Documented On 8 10:53AM ; [facility] History of Pap smear done 03/02/2017 Last Documented On 8 10:53AM ; [facility] Depression 03/01/2017 Last Documented On 8 10:53AM ; [facility] A colonoscopy was performed scheduled fo r 03/17/17 03/01/2017 Last Documented On 8 10:53AM ; [facility] Last mammogram date: 09/23/2014 7 Last Documented On 8 10:53AM ; [facility] Patient recently had a dexa scan 11/27/2014 -- years ago when on prednisone: 'it was good' 03/01/2017 Last Documented On 8 10:53AM ; [facility] Result: normal 03/01/2017 Last Documented On 8 10:53AM ; [facility] Result: normal 03/01/2017 Last Documented On 8 10:53AM ; [facility] Anxiety 11/05/2014 Last Documented On 8 10:53AM ; [facility] Colon cancer in 2001: no chemo or radiat ion 11/05/2014 Last Documented On 8 10:53AM ; [facility] 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 10/15 Last Documented On 8 10:53AM ; [facility] Cervical dysplasia with Dr A lbi: in the 90's: colp/bx/cone bx/ then freezing: nl since then 11/05/2014 Last Documented On 8 10:53AM ; [facility] Aborta 1 at 6wks with D&C 11/05/2014 Last Documented On 8 10:53AM ; [facility] Vaginal delivery x 3: 6 8lb 7oz male hemorrhaged ~11/15/77 7lb 8oz male ~09/25/81 7lb 6oz female ~3rd child at age 16 of avelrhabdomyosarcoma 11/05/2014 Last Documented On 8 10:53AM ; [facility] History of urinary tract infection 11/05 Last Documented On 8 10:53AM ; [facility] History of asthma 11/05/2014 Last Documented On 8 10:53AM ; [facility] History of fibrocystic disease of breast 11/05/2014 Last Documented On 8 10:53AM ; [facility] History of hyperlipidemia 11/05/2014 Last Documented On 8 10:53AM ; [facility] History of thyroid disorder nodules 10/15 Last Documented On 8 10:53AM ; [facility] Sexually active 11/05/2014 Last Documented On 8 10:53AM ; [facility] 4 11/05/2014 Last Documented On 8 10:53AM ; [facility] History of screening mammogram was perfo rmed 09/23/2014 11/05/2014 Last Documented On 8 10:53AM ; [facility] Para 3 11/05/2014 Last Documented On 8 10:53AM ; [facility] Family History Includes: Family History addressed during this encounter Description Last Updated Maternal aunt's history of F amily history of breast neoplasm malignant mat aunt in her 60's 03/01/2017 Last Documented On 8 10:53AM ; [facility] Family history of breast neoplasm malign ant mat aunt in her 60's 11/05/2014 Last Documented On 8 10:53AM ; [facility] Family history of diabetes mellitus Moth er, brother, & MGF 11/05/2014 Last Documented On 8 10:53AM ; [facility] Family history of heart disease parents 11/05/2014 Last Documented On 8 10:53AM ; [facility] Family history of hypercholesterolemia M other & brothers 11/05/2014 Last Documented On 8 10:53AM ; [facility] Family history of hypertension parents 0 11/05/2014 Last Documented On 8 10:53AM ; [facility] Review of Systems Includes: Review of Systems from this encounter No Review of Systems Recorded Mental Status Includes: Mental Status from this encounter Description Anxiety Functional Status Includes: Functional Status from this encounter No Functional Status Recorded Physical Exam Includes: Physical Exam from this encounter No Physical Exam Recorded Allergies Includes: Active Allergies Substance Type Reaction Onset Date Resolved Date Statu s Zithromax Allergy 11/05/2014 Active Last Documented On 8 11:03AM ; [facility] Xopenex Concentrate Allergy 11/05/2014 Active Last Documented On 8 11:03AM ; [facility] Quinolones Allergy 08/05/2017 Active Last Documented On 8 12:00PM ; [facility] Levaquin Allergy 11/05/2014 Active Last Documented On 8 11:03AM ; [facility] Latex Allergy 11/05/2014 Active Last Documented On 8 11:03AM ; [facility] Effexor XR Allergy 03/01/2017 Active Last Documented On 8 11:03AM ; [facility] Ceftin Allergy 11/05/2014 Active Last Documented On 8 11:03AM ; [facility] Encounters Encounter Provider Location Date Check-In Time Check-Out Time Diagnosis * PHONE CALL SARAH CLAROS 08/05/2017 10:53AM 11:59PM Insurance Includes: Active Insurance Policies Plan Name Member ID Group # Subscriber Relationship Effect matthew Dates 1 - [facility] [id number] LEAH Rodriguez Clinical Notes Includes: Clinical Notes from this encounter No Clinical Notes Recorded
--- OUTSIDE RECORDS SUMMARY | 2024-06-19 17:30 | XMS_ITS | Encounter Summary ---
Author Organization [facility] Address [address] [place] [address] Care Team Providers Care Retail Marketing Executive Name Role Phone Zainab Anna Primary Care Provider [phone] Souleymane Jackson MD Unavailable [phone] Lupillo Brownlee MD Unavailable [phone] Brody Kemp DO Unavailable Yossi Caro MD Unavailable [phone] Avery Lux MD Unavailable [phone] Raf Ovalles MD Unavailable [phone] Sindy Hatch MD Unavailable [phone] Eli Sparrow RN Unavailable [phone] Saleem Rod MD Primary Care Provider [phone] Reason for Visit * Reason Onset Date Comments Scheduling Appointments 06/09/2020 DEXA rem rufina; to be cancelled Encounter Details Date Type Department Care Team (Late st Contact Info) Description 06/09/2020 Telephone [facility] [address] [place] [id number] Juju Virk RT Scheduling Appointments (DEXA reminder; to be cancelled) Social History Tobacco Use Types Packs/Day Years Used Date Smoking Tobacco: Never Smokeless Tobacco: Never Alcohol Use Standard Drinks/Week Comments No 0 (1 standard drink = 0.6 oz pur e alcohol) PHQ-2 Answer Date Recorded PHQ-2 Total Score (If total score is 3 or more points, staff should administer the PHQ-9) 2 05/22/2020 Comments No Sex and Gender Information Value Date Recorded Sex Assigned at Not on file 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 Gender Identity Not on file Sexual Orientation Not on file documented as of this encounter Plan of Treatment Upcoming Encounters Date Type Department Care Team (Late st Contact Info) Description 08/03/2024 8:55 AM CDT Hospital Encounter [address] [address] Felicity Galarza MD [address] [facility] [address] [place] [id number] 08/03/2024 8:55 AM CDT - 08/03/2024 9:25 AM CDT Surgery [address] [address] Felicity Galarza MD [address] [facility] [address] [place] [address] COLONOSCOPY Scheduled Procedures Name Priority Associated Diagnoses Date/Ti me COLONOSCOPY Personal history of colon cancer Encounter for screening colonoscopy 08/03/2024 8:55 AM CDT documented as of this encounter Goals Goal Patient Goal Type Associated Problems Recent Progress Patient-Stated? Author [facility] On track( 020 8:37 AM CDT) No Peri [place], RN Note: Patient will establish a comfort-function goal and identify the pain level that will allow the patient to perform desired activities and achieve an acceptable quality of life. documented as of this encounter Visit Diagnoses Not on filedocumented in this encounter Additional Health Concerns Infection Onset Date Last Indicated Resolved Time COVID: Suspected 05/04/2022 05/04/2022 05/05/2022 3:05 AM VOCATIONAL EDUCATION TEACHER documented as of this encounter Care Teams Retail Marketing Executive Relationship Specialty Start Date End Date Zainab Anna DO PCP - General Family Medicine 11/13/18 11/17/22 Saleem Rod MD [address] [facility] [address] [place] [address] PCP - General Family Medicine 11/18/22 Souleymane Jackson MD Consulting Physician Pulmonary Disease 11/13/18 Lupillo Brownlee MD Referring Physician Orthopedic Surgery 11/13/18 Brody Kemp DO Consulting Physician Cardiology 02/14/20 12/28/20 Yossi Caro MD Consulting Physician Cardiology 02/14/20 Avery Lux MD Anesthesiologist Anesthesiology 02/14/20 Raf Ovalles MD [address] [facility] [address] [place] [address] Consulting Physician Gastroenterology 02/14/20 [place] [address] [address] [place] [address] Consulting Physician Cardiology 12/29/20 Eli Sparrow, JCARLOS [address] [place] [address] [address] [place] [address] Utilization Review Coordinator 07/13/22 08/19/22 documented as of this encounter
--- OUTSIDE RECORDS SUMMARY | 2024-06-19 17:30 | XMS_ITS | Clinical Summary ---
Author Organization [facility] Address [address] [facility] [place] [address] Care Team Providers Care Clarity Specialists Name Role Phone Zainab Anna DO Primary Care Provider [phone] Source Comments [facility],non-owned Affiliates and Associated Physician Practices is amultiple site organization consisting of ambulatory clinics and hospital sitesin [place], [place], [place] and [place]. This disclosure is being madepursuant to the Care Everywhere program and may not contain all information available regarding this patient. Last updated 18.[facility] Allergies Active Allergy Reactions Criticality Noted Date Comments Cefuroxime Rash Medium 05/14/2020 Latex Swelling 05/14/2020 Levofloxacin Itching Medium 05/14/2020 Levalbuterol Hcl Other 05/14/2020 Low BP Medications * Be aware that medications may not be up to date on this document. Alwaysverify current medications with the patient. Medication Sig Dispensed Refills Start Date End Date Status zolpidem (AMBIEN) 10 MG tablet Take 10 mg by mouth nightly as needed for Insomnia Active fluticasone-vilant beau (BREO ELLIPTA) 200-25 MCG/INH inhaler Inhale 1 puff by mouth once daily Active mometasone (NASONEX) 50 MCG/ACT nasal spray [place] 1 spray into each nostril 2 times daily Active amiodarone (CORDARONE) 200 MG tablet Take 200 mg by mouth 2 times daily Active apixaban (ELIQUIS) 5 MG tablet Take 5 mg by mouth 2 times daily Active tiotropium (SPIRIVA) 18 MCG inhalation capsule Inhale 1 capsule by mouth once daily Active PARoxetine (PAXIL) 40 MG tablet Take 40 mg by mouth once daily Active pravastatin (PRAVACHOL) 40 MG tablet Take 40 mg by mouth at bedtime Active dilTIAZem coated beads 24hr (CARTIA XT) 300 MG capsule Take 300 mg by mouth once daily Active clonazePAM (KLONOPIN) 0.5 MG tablet Take 0.5 mg by mouth at bedtime Active albuterol (PROVENTIL;VENTOLI N) (5 MG/ML) 0.5% nebulizer solution Inhale 2.5 mg by mouth 4 times daily as needed for Shortness of Breath or Wheezing 2.5/3ml Active benralizumab (FASENRA) injection Inject 30 mg subcutaneously once Active Social History Tobacco Use Types Packs/Day Years Used Date Smoking Tobacco: Never Assessed Sex and Gender Information Value Date Recorded Sex Assigned at Not on file Gender Identity Not on file Sexual Orientation Not on file Last Filed Vital Signs Vital Sign Reading Time Taken Comments Blood Pressure 112/67 05/14/2020 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 Pulse 65 05/14/2020 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 Temperature 37.2 ??C (98.9 ??F) 05/14/2020 8:20 AM CS T Respiratory Rate 16 05/14/2020 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 Oxygen Saturation 98% 05/14/2020 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 Inhaled Oxygen Concentration - - Weight 148.1 kg (326 lb 6.4 oz) 05/14/2020 8:20 AM DOOR REPAIRMAN Height 170.2 cm (5' 7 ) 05/14/2020 8:20 AM DOOR REPAIRMAN Body Mass Index 51.12 05/14/2020 8:20 AM DOOR REPAIRMAN Plan of Treatment Health Maintenance Due Date Last Done Comments BONE DENSITY TESTING 1954 COLOGUARD (AGES 45-75) - COL ON CA SCREENING 1954 COLON MONITORING 1954 COLONOSCOPY - COLON CA SCREENING 1954 CT COLONOGRAPHY - COLON CA SCREENING 1954 Colorectal Cancer Screening 1954 FIT - COLON CA SCREENING 1954 FLEX SIG - COLON CA SCREENING 1954 MAMMOGRAM 1954 HEPATITIS C SCREENING 01/03/1972 DTAP/TDAP/TD VACCINES (1 - Tdap) 1973 PNEUMOCOCCAL VACCINE 50+ (1 of 1 - PCV) 01/08/2004 ZOSTER VACCINE (1 of 2) 01/08/2004 Respiratory Syncytial Virus (RSV) Vaccine Pt: or over 60 yrs (1 - Risk 60-74 years 1-dose series) 2014 COVID-19 VACCINE (2023-2 5 season) 2024 INFLUENZA VACCINE (#1) 2024 06/05/2013 DEPRESSION SCREENING 05/16/2024 HEPATITIS B VACCINE Aged Out No longe r eligible based on patient's age to complete this topic HIB VACCINE Aged Out No longer eligi ble based on patient's age to complete this topic HPV VACCINE Aged Out No longer eligi ble based on patient's age to complete this topic MENINGOCOCCAL (Group B) VACCINE Aged Out No longer eligible based on patient's age to complete this topic MENINGOCOCCAL VACCINE Aged Out No robert samreen eligible based on patient's age to complete this topic Care Teams Clarity Specialists Relationship Specialty Start Date End Date Zainab Anna DO PCP - General Family Medicine 05/14/20
--- OUTSIDE RECORDS SUMMARY | 2024-06-19 17:30 | XMS_ITS | Clinical Summary ---
Author Organization [facility] Address [address] [place] [address] Phone Care Team Providers Care Abstracter Name Role Phone JOEL DOLL MD Unavailable [phone] Reason for Visit and Chief Complaint NO SHOW Problems Includes: Problems addressed during this encounter and other active Problems All Visits Onset Date Resolved Date Provider Condition S tatus Ventral Hernia 08/11/2017 JOEL Silverio MD Active Last Documented On 08/11/2017 11:41AM ; [facility] Note: Unchanged Female Pelvic Pain 11/05/2014 JOEL LEHMAN MD Active Last Documented On 11/05/2014 3:59PM ; [facility] Note: Unchanged Cervical Dysplasia 11/05/2014 JOEL LEHMAN MD Active Last Documented On 11/05/2014 3:59PM ; [facility] Note: Unchanged - with Dr Walton: in the 9 0's: colp/bx/cone bx/ then freezing: nl since then Colon Cancer 11/05/2014 JOEL DOLL MD Active Last Documented On 11/05/2014 3:59PM ; [facility] Note: Unchanged - in 2001: no chemo or r adiation Breast Fibrocystic Disease 11/05/2014 JOEL DOLL MD Active Last Documented On 11/05/2014 3:59PM ; [facility] Note: Unchanged 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 JOEL FERNÁNDEZ MD Active Last Documented On 11/05/2014 3:59PM ; [facility] Note: Unchanged Plan of Treatment No [...] On 8 10:27AM By MAMADOU BURKS ; [facility] Paxil 40MG Oral Tablet 03/01/2017 Provider: Diagnosis: Last Documented On 7 2:51PM By MAMADOU BURKS ; [facility] Breo Ellipta 200-25MCG/INH I nhalation Aerosol Powder Breath Activated 03/01/2017 Provider: Diagnosis: Last Documented On 7 2:52PM By MAMADOU BURKS ; [facility] Ambien 10MG Oral Tablet 03/01/2017 Provider: Diagnosis: Last Documented On 7 2:53PM By MAMADOU BURKS ; [facility] Bentyl 20MG Oral Tablet 03/01/2017 Provider: Diagnosis: takes 40mg Last Documented On 7 2:54PM By MAMADOU BURKS ; [facility] Vicodin 5-300MG Oral Tablet 03/01/2017 Provider: Diagnosis: Last Documented On 7 2:54PM By MAMADOU BURKS ; [facility] PriLOSEC OTC 20MG Oral Tablet Delayed Release 03/01/20 Provider: Diagnosis: Last Documented On 7 2:55PM By MAMADOU BURKS ; [facility] Mometasone Furoate 0.1% External Ointment 03/01/2017 Provider: Diagnosis: Last Documented On 7 2:56PM By MAMADOU BURKS ; [facility] Ibuprofen 600MG Oral Tablet 03/01/2017 Provider: Diagnosis: prn Last Documented On 7 2:56PM By MAMADOU BURKS ; [facility] PARoxetine HCl 40 MG Tablet 11/03/2014 Provider: Diagnosis: Last Documented On 5 2:48PM By NEGRITA COTTER LPN ; [facility] ALPRAZolam 0.5 MG Tablet 10/17/2014 Provider: Diagnosis: Last Documented On 5 2:48PM By NEGRITA COTTER LPN ; [facility] Pravastatin Sodium 40 MG Tablet 08/12/2014 Provider: Diagnosis: Last Documented On 5 2:48PM By NEGRITA COTTER LPN ; [facility] Medications Administered Includes: Administered Medications from this [...] Active Last Documented On 8 11:03AM ; [facility] Xopenex Concentrate Allergy 11/05/2014 Active Last Documented On 8 11:03AM ; [facility] Quinolones Allergy 08/05/2017 Active Last Documented On 8 12:00PM ; [facility] Levaquin Allergy 11/05/2014 Active Last Documented On 8 11:03AM ; [facility] Latex Allergy 11/05/2014 Active Last Documented On 8 11:03AM ; [facility] Effexor XR Allergy 03/01/2017 Active Last Documented On 8 11:03AM ; [facility] Ceftin Allergy 11/05/2014 Active Last Documented On 8 11:03AM ; [facility] Insurance Includes: Active Insurance Policies Plan Name Member ID Group # Subscriber Relationship Effect matthew Dates 1 - [facility] [id number] LEAH Rodriguez Clinical Notes Includes: Clinical Notes from this encounter No Clinical Notes Recorded
--- OUTSIDE RECORDS SUMMARY | 2024-06-19 17:30 | XMS_ITS | Clinical Summary ---
Author Organization [facility] Address [address] [place] [address] Phone Care Team Providers Care Undercoater Name Role Phone JOEL DOLL MD Unavailable [phone] Reason for Visit and Chief Complaint CHART UPDATE Problems Includes: Problems addressed during this encounter and other active Problems Current Visit Onset Date Resolved Date Provider Conditio n Status Cervical Dysplasia 11/05/2014 JOEL DOLL MD Active Last Documented On 11/05/2014 3:59PM ; [facility] Note: Unchanged - with Dr Walton: in the 9 0's: colp/bx/cone bx/ then freezing: nl since then Colon Cancer 11/05/2014 JOEL DOLL MD Activ e Last Documented On 11/05/2014 3:59PM ; [facility] Note: Unchanged - in 2001: no chemo or r adiation Past Visits Onset Date Resolved Date Provider Condition Status Ventral Hernia 08/11/2017 JOEL DOLL MD Act matthew Last Documented On 08/11/2017 11:41AM ; [facility] Note: Unchanged Female Pelvic Pain 11/05/2014 JOEL DOLL MD Active Last Documented On 11/05/2014 3:59PM ; [facility] Note: Unchanged Breast Fibrocystic Disease 11/05/2014 JOEL DOLL MD Active Last Documented On 11/05/2014 3:59PM ; [facility] Note: Unchanged 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 JOEL Lam Active Last Documented On 11/05/2014 3:59PM ; [facility] Note: Unchanged Plan of Treatment No Plan [...] 10:27AM By MAMADOU BURKS ; [facility] Paxil 40MG Oral Tablet 03/01/2017 Provider: Diagnosis: Last Documented On 7 2:51PM By MAMADOU BURKS ; [facility] Breo Ellipta 200-25MCG/INH I nhalation Aerosol Powder Breath Activated 03/01/2017 Provider: Diagnosis: Last Documented On 7 2:52PM By MAMADOU BURKS ; [facility] Ambien 10MG Oral Tablet 03/01/2017 Provider: Diagnosis: Last Documented On 7 2:53PM By MAMADOU BURKS ; [facility] Bentyl 20MG Oral Tablet 03/01/2017 Provider: Diagnosis: takes 40mg Last Documented On 7 2:54PM By MAMADOU BURKS ; [facility] Vicodin 5-300MG Oral Tablet 03/01/2017 Provider: Diagnosis: Last Documented On 7 2:54PM By MAMADOU BURKS ; [facility] PriLOSEC OTC 20MG Oral Tablet Delayed Release 03/01/20 Provider: Diagnosis: Last Documented On 7 2:55PM By MAMADOU BURKS ; [facility] Mometasone Furoate 0.1% External Ointment 03/01/2017 Provider: Diagnosis: Last Documented On 7 2:56PM By MAMADOU BURKS ; [facility] Ibuprofen 600MG Oral Tablet 03/01/2017 Provider: Diagnosis: prn Last Documented On 7 2:56PM By MAMADOU BURKS ; [facility] PARoxetine HCl 40 MG Tablet 11/03/2014 Provider: Diagnosis: Last Documented On 5 2:48PM By NEGRITA COTTER LPN ; [facility] ALPRAZolam 0.5 MG Tablet 10/17/2014 Provider: Diagnosis: Last Documented On 5 2:48PM By NEGRITA COTTER LPN ; [facility] Pravastatin Sodium 40 MG Tablet 08/12/2014 Provider: Diagnosis: Last Documented On 5 2:48PM By NEGRITA COTTER LPN ; [facility] Past Medications on file Clindamycin Phosphate 2% Vaginal Cream 08/05/2017 - 08/12/2017 Provider: SARAH RO RN NAREN Diagnosis: Acute vaginitis as directed 1 CHRISTY IN VAGINA EVERY NIGHT X 7 Last Documented On 8 12:16PM By SARAH CRISTOBAL ; [facility] Ciprofloxacin HCl 500MG Oral Tablet 08/03/2017 - 08/08/2017 Provider: SARAH COPELAND Diagnosis: Acute vaginitis One tablet twice a day TAKE DIRECTED W/FOOD Last Documented On 8 11:44AM By SARAH CRISTOBAL ; [facility] Medications Administered Includes: Administered Medications from [...] sure why 11/05/2014 Last Documented On 8 10:36AM ; [facility] Surgical / procedural histor y 1998 Lt knee ACL reconstruction ~1999 Rt knee repair - lateral release ~Lt plantar faciotomy ~2001 Lt hemicolectomy also left ovary removed due to Dr Schmitz nicked it during hemicolectomy ~2010 repair of abdominal hernia with mesh x 2 ~2010 bowel resection 11/05/2014 Last Documented On 8 10:36AM ; [facility] History of tubal ligation 1982 5 Last Documented On 8 10:36AM ; [facility] Medical History Includes: Medical History addressed during this encounter Description Last Updated Last pap smear date 11/05/2014 08/11/2017 Last Documented On 8 10:36AM ; [facility] History of irritable bowel syndrome 07/15 Last Documented On 8 10:36AM ; [facility] History of complete colonoscopy 03/17/20 17 polyps repear in 3 years, [facility] 08/03/2017 Last Documented On 8 10:36AM ; [facility] LMP: [id number]/03/2017 Last Documented On 8 10:36AM ; [facility] History of a DXA of the lateral lumbar s pine was performed 11/27/2014 08/03/2017 Last Documented On 8 10:36AM ; [facility] History of Pap smear done 03/02/2017 Last Documented On 8 10:36AM ; [facility] Depression 03/01/2017 Last Documented On 8 10:36AM ; [facility] A colonoscopy was performed scheduled fo r 03/17/17 03/01/2017 Last Documented On 8 10:36AM ; [facility] Last mammogram date: 09/23/2014 7 Last Documented On 8 10:36AM ; [facility] Patient recently had a dexa scan 11/27/2014 -- years ago when on prednisone: 'it was good' 03/01/2017 Last Documented On 8 10:36AM ; [facility] Result: normal 03/01/2017 Last Documented On 8 10:36AM ; [facility] Result: normal 03/01/2017 Last Documented On 8 10:36AM ; [facility] Anxiety 11/05/2014 Last Documented On 8 10:36AM ; [facility] Colon cancer in 2002: no chemo or radiat ion 11/05/2014 Last Documented On 8 10:36AM ; [facility] 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 10/15 Last Documented On 8 10:36AM ; [facility] Cervical dysplasia with Dr Marilyn quiros: in the 90's: colp/bx/cone bx/ then freezing: nl since then 11/05/2014 Last Documented On 8 10:36AM ; [facility] Aborta 1 at 6wks with D&C 11/05/2014 Last Documented On 8 10:36AM ; [facility] Vaginal delivery x 3: 6 8lb 7oz male hemorrhaged ~11/15/77 7lb 8oz male ~09/25/81 7lb 6oz female ~3rd child at age 16 of avelrhabdomyosarcoma 11/05/2014 Last Documented On 8 10:36AM ; [facility] History of urinary tract infection 11/05 Last Documented On 8 10:36AM ; [facility] History of asthma 11/05/2014 Last Documented On 8 10:36AM ; [facility] History of fibrocystic disease of breast 11/05/2014 Last Documented On 8 10:36AM ; [facility] History of hyperlipidemia 11/05/2014 Last Documented On 8 10:36AM ; [facility] History of thyroid disorder nodules 10/15 Last Documented On 8 10:36AM ; [facility] Sexually active 11/05/2014 Last Documented On 8 10:36AM ; [facility] 4 11/05/2014 Last Documented On 8 10:36AM ; [facility] History of screening mammogram was perfo rmed 09/23/2014 11/05/2014 Last Documented On 8 10:36AM ; [facility] Para 3 11/05/2014 Last Documented On 8 10:36AM ; [facility] Family History Includes: Family History addressed during this encounter Description Last Updated Maternal aunt's history of F amily history of breast neoplasm malignant mat aunt in her 60's 03/01/2017 Last Documented On 8 10:36AM ; [facility] Family history of breast neoplasm malign ant mat aunt in her 60's 11/05/2014 Last Documented On 8 10:36AM ; [facility] Family history of diabetes mellitus Moth er, brother, & MGF 11/05/2014 Last Documented On 8 10:36AM ; [facility] Family history of heart disease parents 11/05/2014 Last Documented On 8 10:36AM ; [facility] Family history of hypercholesterolemia M other & brothers 11/05/2014 Last Documented On 8 10:36AM ; [facility] Family history of hypertension parents 0 11/05/2014 Last Documented On 8 10:36AM ; [facility] Review of Systems Includes: Review of Systems [...] Active Last Documented On 8 11:03AM ; [facility] Xopenex Concentrate Allergy 11/05/2014 Active Last Documented On 8 11:03AM ; [facility] Quinolones Allergy 08/05/2017 Active Last Documented On 8 12:00PM ; [facility] Levaquin Allergy 11/05/2014 Active Last Documented On 8 11:03AM ; [facility] Latex Allergy 11/05/2014 Active Last Documented On 8 11:03AM ; [facility] Effexor XR Allergy 03/01/2017 Active Last Documented On 8 11:03AM ; [facility] Ceftin Allergy 11/05/2014 Active Last Documented On 8 11:03AM ; [facility] Encounters Encounter Provider Location Date Check-In Time Check-Out Time Diagnosis CHART UPDATE SARAH RO RN NAREN 08/07/2017 10:36AM 11:59PM Insurance Includes: Active Insurance Policies Plan Name Member ID Group # Subscriber Relationship Effect matthew Dates 1 - [facility] [id number] LEAH Rodriguez Clinical Notes Includes: Clinical Notes from this encounter No Clinical Notes Recorded
--- OUTSIDE RECORDS SUMMARY | 2024-06-19 17:30 | XMS_ITS | Continuity of Care Document ---
Author [place] [facility] [place] [address] [facility] utive [address] [address] Phone Care Team Providers Care Coal Handling Supervisor Name Role Phone Kendra OTERO, [place] Unavailable Unavailable Allergies, Adverse Reactions, Alerts Substance Reaction Status Criticality Sulfa (Sulfonamide Antibiotics) Active No Information cefprozil Active No Information VENLAFAXINE HCL Active No Informati on latex only on mucous membranes Active No Information LEVALBUTEROL HCL Decreased Blood Pressure Active No Information POTASSIUM CLAVULANATE Itch Active No Inf ormation AMOXICILLIN TRIHYDRATE Itch Active No In formation levofloxacin anaphalaxis shock Active No Informa tion CEFUROXIME AXETIL hives Active No Informa tion azithromycin Hives Active No Information Medications Medication Instructions Dosage Effective Dates (start - stop) Status Comments tobramycin 0.3 % eye drops instill 1 drop by ophthalmic route every 4 hours into affected eye(s) 1.00 drop - Active pravastatin 40 mg tablet - Active Breo Ellipta 200 mcg-25 mcg/dose powder for inhalation - Active albuterol sulfate 2.5 mg/3 mL (0.083 %) solution for nebulization - Active Ventolin HFA 90 mcg/actuation aerosol inhaler - Active BENTYL (unknown strength) Not Available - Active Benadryl 25 mg capsule take 2 capsule by oral route every 4 - 6 hours as needed 50 MG - Active Aspercreme (lidocaine) 4 % topical as needed - Active Advil 100 mg tablet take 2 tablet by oral route every 4 - 6 hours as needed with food - Active Xanax 0.5 mg tablet take 1 tablet by oral route 3 times every day 0.5 MG - Active Neurontin 600 mg tablet take 1 tablet by oral route 4 times every day 600 MG - Active VICODIN (unknown strength) Not Available - Active Spiriva with HandiHaler 18 mcg and inhalation capsules - Active Ambien 10 mg tablet - Active Paxil 40 mg tablet - Active Procedures Procedure Date Office/outpatient Visit, Est Office/outpatient Visit, Est Office/outpatient Visit, Est No Charge Refraction Corneal Pachymetry Eye Exam & Treatment Office/outpatient Visit, Est Office/outpatient Visit, Est Office/outpatient Visit, Est Medical Records Request No Charge Refraction Office/outpatient Visit, Est Refraction Office/outpatient Visit, Est Office/outpatient Visit, Est No Charge Refraction No Charge Optomap Fundus Photos 016 Corneal Topography Corneal Pachymetry Office/outpatient Visit, Est IOLMaster-Technical Corneal Pachymetry Eye Exam, New Patient No Charge Refraction Advance Directives Directive Yes / No Effective Date File Name No Information Encounters Encounter Description Practice Location Reason(s) For Visit Diagnoses Date Provider Providers Copied on Encounter Office/outpa tient Visit, Est [facility], [address] [facility] [address], [place], [place], [id number], [place] tel:[phone] SEC Kendall DE LUNA Professional 1 week Corneal abrasion f/u (chief complaint) Abrasion of right cornea, subsequent encounter 8 Kendra Downing. [address] [place], [address], [place]. tel:[phone] Referring Provider: Salina Gardner, [address] [place], [address]. tel:[phone] Office/outpa [place]ient Visit, [facility] [place] [address], [place], [place], [address], [place] tel:[phone] SEC Kendall DE LU[place] Professional 1 day f/u to Corneal abrasion (chief complaint) Abrasion of right cornea, subsequent encounter 0 8 Joseph Quinones. [address] [facility], [address], [place], [place], [address], [place]. tel:[phone] Referring Provider: Salina Gardner, [address] [place], [address]. tel:[phone] Office/outpa tient Visit, [facility] [place], [address], [place], [place], [address], [place] tel:[phone] SEC Kendall DE LU[place] Professional Irritated eye (chief complaint) Abrasion of right cornea, initial encounter Oct-0 8 Li ERIK Kelly. [address] [facility] [address], [place], [address], [place]. tel:[phone] Referring Provider: Salina Gardner, [address] [facility], [place], [address]. tel:[phone] [facility], [address] [place] [address] [address], [place], [place], [address], [place] tel:[phone] SEC Kendall [place] LU[place] Professional Complete Exam (chief complaint) ABMD (anterior basement membrane dystrophy)End othelial corneal dystrophyRPE mottling of maculaAge-rel ated nuclear cataract, right eyeCombined forms of age-related cataract, left eyeCorneal scar, right eyeRetinal scar of both eyes 2-201 8 Kendra Downing. [address] [place], [address], [place]. tel:[phone] Referring Provider: Salina Gardner, [address] [place], [address]. tel:[phone] [facility], [address] [place] [address] [address], [place], [place], [address], [place] tel:[phone] SEC Adi Haskins [place] No Information 9-201 8 Gardner [place]. [address] [place], [place], [facility], . tel:[phone] Office/outpa tient Visit, [facility], [address], [place], [place], [address], [place] tel:[phone] SEC Kendall DE LUNA Professional Follow up visit (chief complaint) No Information 7 Gardner [place]. [address] [place], [address], . tel:[phone] Referring Provider: Luis Sanders [address] [place], [address] . tel:[phone] Office/outpa tient Visit, [facility], [address] [place] [address] [address], [place], [place], [address], [place] tel:[phone] SEC Kendall DE LUNA Professional 2 day Cornea check (chief complaint) No Information 3 0-201 7 Gardner [place]. [address] [place], [place], [facility], . tel:[phone] Referring Provider: Luis Sanders [address] [facility] [place], [address] . tel:[phone] Office/outpa tient Visit, [facility], [address] [place] [address] [address], [place], [place], [address], [place] tel:[phone] SEC [facility] office visit (chief complaint) No Information 2 8-201 7 Gardner [place]. [address] [place], [place], [facility], [place]. tel:[phone] Referring Provider: Luis Iamwendydeborah Sanders, [address] [facility] [address], [place], [address] . tel:[phone] [facility], [address] [place] [address] [address], [place], [place], [address], tel:[phone] SEC Merrick N Lindbergh No Information Nov-0 7 Iamwendydeborah Luis. [address] [facility], [address], [place], [place], [address], [place]. tel:[phone] Referring Provider: Luis Sanders, [address] [facility] [address], [place], [address] . tel:[phone] Office/outpa tient Visit, [facility] [place], [address] [place] [address] [address], [place], [place], [address], tel:[phone] SEC Kendall DE LUNA Professional 1 week follow up (chief complaint) No Information Darrin-2 7 Gardner [place]. [address] [place], [place], [facility], . tel:[phone] Referring Provider: Luis Iamwendydeborah Sanders, [address] [facility] [address], [place], [address] . tel:[phone] Office/outpa tient Visit, [facility] [place], [address] [place] [address] [address], [place], [place], [address], [place] tel:[phone] SEC True N Lindberg Follow up visit (chief complaint) No Information Darrin-0 7 Gardner [place]. [address] [place], [place], [facility], . tel:[phone] Referring Provider: Luis Sanders, [address] [facility] [address], [place], [address] . tel:[phone] Office/outpa tient Visit, [facility] [place], [address], [place], [place], [address], tel:[phone] SEC Kendall [place] Professional Pain (chief complaint) No Information Darrin-0 7-201 7 Clifford Smith. [address], [place], [place], [address], . tel:[phone] Referring Provider: Luis Iamwendydeborah Sanders, [address], [place], [address] . tel:[phone] Office/outpa tient Visit, [facility], [address] [place] [address] [address], [place], [place], [address], tel:[phone] SEC Kendall [place] Professional Blurry vision (chief complaint) No Information Nov- 2-201 6 [place] Ray. [address] [place] [address] Drive, [address], [place], [place], [address], . tel:[phone] Referring Provider: Luis Horton Marilyn, [address], [place], [address] . tel:[phone] [facility], [address], [place], [place], [address], tel:[phone] SEC [place] Professional evaluation (chief complaint) No Information Jul-3 0-201 6 Clifford Smith. [address], [place], [place], [address], . tel:[phone] Referring Provider: Luisjuan Vitalewendydeborah Sanders, [address], [place], [address] . tel:[phone] Family History Family Member Type Diagnosis Age At Onset Problem (finding) Family history of degenerative disorder of macula Problem (finding) Family history of Diabe jakob mellitus Problem (finding) Family history of Strab ismus Payers Payer name Insurance type Covered constitution party ID Authoriza tion(s) [employer] Medicare [id number] Social History Type Description Quantity Date Captured Comments Alcohol Use Details No Caffeine Use Details > 32oz per day Tobacco Use Status Current non-smoker Smoking Status Never smoker Non-Smoking Tobacco Use Details : No Details Available : No Details Available Sex Female Chief Complaint And Reason For Visit From encounter dated '10/31/2017 11:15'. 1 week Corneal abrasion f/u (chief complaint). Description: The 62 year old female presents for evaluation of 1 week Corneal abrasion f/u in the right eye. Patient states OD is good, still using Tobramycin qid OD, when she remembers. Reason For Referral Reason For Referral No Information Plan Of Treatment Date Type Action Status Referral Referred To: [place] Ordered: Referrals: Ophthalmology. [place]. Evaluate and treat ordered Patient Education Corneal Scratches: Care Instructions completed History Of Present Illness Encounter Date Complaint History Of Prese nt Illness 1 week Corneal abrasion f/u The 62 year old female presents for evaluation of 1 week Corneal abrasion f/u in the right eye. Patient states OD is good, still using Tobramycin qid OD, when she remembers. 1 day f/u to Corneal abrasion Th e 62 year old female presents for evaluation of 1 day f/u to Corneal abrasion in the right eye. Patient states OD is much better. Patient using Tobramycin 1 gtt every hour while awake. Irritated eye The 62 year old female presents for evaluation of Irritated eye in the right eye. Hx of CAT OU, Fuch's OU, K abrasion OD, RCE OD, KENYETTA OU, and ABMD OS. Pt reports she woke up yesterday morning and OD is irritated and dry feeling and feels like it is scratched, but it is better than it was yesterday. Pt reports she used some old Tobramycin gtts she had TID OD yesterday and QD today. Complete Exam The 62 year old female presents for Complete Exam in the right eye and left eye monitoring Fuchs. Patient has recent hx of an abrasion OD. Patient states this morning she thinks she ripped her OD when she took her CPAP off this am. Patient states OD is feeling ok. Patient states she thinks she needs the josé antonio oint. Patient states her eyelids margins itch. Follow up visit The 62 year old female presents for a 1 week follow up for corneal abrasion OD. Patient is using Tobramycin qid OD. Patient has a BCL OD. Patient states OD is feeling alot better. 2 day Cornea check The 62 year o ld female presents for 2 day Cornea check in the right eye. Hx of RCE OD, K-abrasion OD, K-edema, CAT OU, Fuch's OU, Drusen OS, Retinal Bleed repair c/Laser OD, and ABMD OS. Pt reports she is using Tobramycin QID OD. Pt reports OD is a little better and she can open it somewhat now. office visit The 62 year old female presents for office visit in the right eye. Hx Recurrent Erosion,CAT OU, Fuch's, Drusen OS and Retinal Bleed repair c/laser OD. Pt states she woek up Sat morning and OD was painful, watery. Pt states by Tuesday she couldn't open her eye at all. Pt states it has gotten progressively worse. Pt states she is using AFT's PRN. 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 . Pt using Tobrdex QID OD and AFT's, pt was supposed to draft roller picker rx for José Antonio but has not been able to fine id at the pharmacies she went to. Pt states her vision is doing much better. Pt denies pain/discomfort. Follow up visit The 61 year old female presents for a 2 day follow up for recurrent erosion OD,. Patient is using Tobrex qid OD. Patient c/o OD is very light sensitive and states the discomfort seems to be getting some better. Patient has a BCL OD Pain The 61 year old female presents for Pain in the right eye. Hx of CAT OU, Fuch's, Drusen OS and Retinal Bleed repair c/laser OD. Pt reports she has KENYETTA and used to take Restasis but quit taking it due to cost end of last year. Pt reports she woke up yesterday and it felt like her eye was stuck shut. Pt reports when she open it, it felt like her eyeball ripped. Pt reports OD hurts, severely and feels like it is bruised above eye, especially when she moves her eye. Pt reports it feels like something is sticking her in the RLL. Blurry vision The 60 year old female presents for a complete evaluation of cataracts OU and Fuchs, patient denies any pain or discomfort at this time, states v/a is very decreased OU in the distance, near, and c glare. Patient does not use any gtts at this time. evaluation The 60 year old female presents for evaluation of blurry vision. Pt. has had retinal bleed OD and Dr. Pat lasered. Pt. states that she has a wrinkle in the OD as well. 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 Pt. states that she has also been told that she has the start of cataracts OU. Vison comes and goes a lot. Dr. Randy Villar would not give her an updated Rx because he could not figure out why she couldn't see or improve her vision. Pt. reports that her eyes itch along her lash line and that her eyes burn. Pt. states that she uses a lot of AFT but feels as though they don't last very long. Pt. state that if she cries her eyes seem to be better. Pt. does wear a C-PAP at night and that could be drying her eyes out and she does not sleep with the ceiling fan on. Pt. states thaqt the other day she had her eyes closed and seen white curly lines everywhere that were bouncing all over. Pt. also states that 40 years ago she had [place] Palsy. Functional Status Date Functional Assessmen t No Information Instructions Date Instruction Additional Infor ray RTC May for Comp lete Exam or sooner with problems Related to Abrasion of right cornea, subsequent encounter Impression/Plan Related to Abras ion of right cornea, subsequent encounter Medication use discussed Related to Abrasion of right cornea, subsequent encounter Educational material provided Re lated to Abrasion of right cornea, subsequent encounter Impression/Plan Impression/Plan rtc 3 months for Mrx cornea check and pachs Related to Age-related nuclear cataract, right eye Impression/Plan - sc ars OU stable, will continue to monitor. 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 Cataracts not visually significant, will monitor. Follow up - rtc 3 mo nths for Mrx cornea check and pachs Related to Age-related nuclear cataract, right eye Impression/Plan - Co ndition appears mild, will continue to monitor. 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 Will continue to monitor. Will recheck pachs at next visit. 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 Recommend José Antonio 128 ointment QHS OU. Erx to [facility]. Continue artificial tears QID OU. Will continue to monitor. RTC 3 months for Mrx, cornea check, and pachs or sooner with problems. 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 Related to Abrasion of right cornea, subsequent encounter Impression/Plan - Di scussed exam findings with patient. Removed BCL OD in office. OD abrasion resolved. Discussed josé antonio ointment in trying to prevent recurrent erosions. Pt would like to try. Recommend waiting 2 wks then starting José Antonio ointment QHS OD. Return to clinic in 6 weeks for complete exam with MRx or sooner with problems. Related to Abrasion of right cornea, subsequent encounter Follow up - Return i n 1 week with Salina Gardner M.D. for follow up exam. Impression/Plan - Ab rasion improving OD. Continue Tobramycin QID OD and continue BCL OD. Return to clinic in 1 week follow up or sooner with problems. Will consider josé antonio in the future Related to Abrasion of right cornea, subsequent encounter Follow up - Return i n 2 days with Salina Gardner M.D. for follow up exam. Impression/Plan - Di scussed exam findings with patient. Bandage contact lens placed in OD, night and day bc 8.6, leann 13.8 -0.25. Start Tobramycin QID OD. Erx to [facility]. Return to clinic in 2 days at [place] office for follow up, lensometry and K-check or sooner with problems. Impression/Plan - Wi ll continue to monitor. Return in 2 days for follow up with K check and lensometry. Related to Corneal edema of right eye Abrasion of right co rnea, initial encounter - Educational material provided Related to Abrasion of right cornea, initial encounter Impression/Plan - Co rneal abrasion OD resolved. Instruct pt to discontinue Tobrex but to continue ATs QID. Recommend pt start josé antonio ointment qhs OD q hs for 30 days. Recommend if pt notes vision is more blurry in the morning in the left eye she can also use José Antonio 128 in OS at night. Erx to [facility]. RTC in 1 year. Impression/Plan - Ca taracts OU. Patient elects to update glasses at this time. Monitor in 1 year, sooner PRN. 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 Continue Tobrex 1 gtt QID OD until follow up appointment. Start ATs QID OD. Recommend pt start josé antonio ointment qhs OD in 1-2 days, only once eye starts to feel better. Erx to [facility]. Gave sample of Systane Balance. RTC in 1 week for follow up. Follow up - 2 days for follow up Impression/Plan - Di scussed diagnosis and treatment in detail with patient. Start Tobrex 1gtt QID OD until healed. Erx to [facility]. Inserted BCL Night and Day 8.6 13.8 +0.25. Return to clinic in 2 days for follow up or sooner with any problems. 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 Discussed cataract surgery alone and corneal decompensation. The patient is aware that if the cornea condition does progress following cataract surgery a DSAEK would be needed in order to obtain the best visual potential for this eye. Explained if this occurs following surgery of the first eye a Triple DSAEK would be recommended for fellow eye. The patients questions were answered and demonstrates understanding of our discussion. Pt also understands all risks, alternatives and benefits associated with this procedure and will schedule. Recommend proceeding with cataract surgery only at this time. Astigmatism discussed and she is aware she will still need specs following surgery. Pt needs IOL master and watch video prior to meeting with the team leader surgery. Pt is anxious. Pt is a nurse. Follow up - sched ce OD 1st Combined forms of ag e-related cataract, bilateral - Surgery advised; risks, benefits, alternatives discussed. Related to Combined forms of age-related cataract, bilateral Impression/Plan - Di scussed cataracts with pt and treatment options. pt also understands at this time vision does not qualify to have CE with insurance coverage. Fuchs discussed will continue to monitor, no treatment needed at this time. Completely sealed retinal tear OD discussed, decreased vision could be due to macula. Return to a Retina Specialist for evaluation. Continue artificial tears prn for dry eyes. Discussed Restasis, pt elects to try treatment. Pt aware drops take 6 weeks to notice a difference. Pt aware burning sensation is normal. Erx Restasis to [facility]. Patient to return to office in 6 weeks for Restasis follow up or sooner with any problems. Follow up - Return t o clinic in 6 weeks for Restasis follow up Fuchs' corneal dystr ophy - Educational material provided Related to Fuchs' corneal dystrophy Assessments Type Assessment Date assessment Abrasion of right cornea, subseq uent encounter impression Abrasion of right cornea, subseq uent encounter: S05.01xD Patient Care Teams Name Effective Dates (start - stop) Status Members No Information
--- OUTSIDE RECORDS SUMMARY | 2024-06-19 17:30 | XMS_ITS | Clinical Summary ---
Author Organization [facility] Address [address] [place] [address] Phone Care Team Providers Care Central Office Equipment Engineer Name Role Phone JOEL DOLL MD Unavailable [phone] Reason for Visit and Chief Complaint The Chief Complaint is: f/u for pelvic pain Problems Includes: Problems addressed during this encounter and other active Problems Current Visit Onset Date Resolved Date Provider Conditio n Status Ventral Hernia 08/11/2017 JOEL DOLL MD Act matthew Last Documented On 08/11/2017 11:41AM ; [facility] Note: Unchanged Cervical Dysplasia 11/05/2014 JOEL DOLL MD Active Last Documented On 11/05/2014 3:59PM ; [facility] Note: Unchanged - with Dr Walton: in the 9 0's: colp/bx/cone bx/ then freezing: nl since then Colon Cancer 11/05/2014 JOEL DOLL MD Activ e Last Documented On 11/05/2014 3:59PM ; [facility] Note: Unchanged - in 2001: no chemo or r adiation Past Visits Onset Date Resolved Date Provider Condition Status Female Pelvic Pain 11/05/2014 JOEL DOLL MD Active Last Documented On 11/05/2014 3:59PM ; [facility] Note: Unchanged Breast Fibrocystic Disease 11/05/2014 JOEL DOLL MD Active Last Documented On 11/05/2014 3:59PM ; [facility] Note: Unchanged 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 JOEL Lam Active Last Documented On 11/05/2014 3:59PM ; [facility] Note: Unchanged Plan of Treatment No Plan of Treatment Recorded Assessments Includes: Assessments from this encounter Findings - Ventral hernia - Last Documented On 08/11/2017 11:42AM ; [facility] Medical Equipment - Implanted Devices Includes: Current Devices No Medical Equipment Recorded Medications Includes: Medications discussed during this encounter and other current Medications Discontinued / Stopped on this date on 03/01/2017 Gabapentin 600MG Oral Tablet Provider: Diagnosis: Last Documented On 8 10:26AM By MAMADOU BURKS ; [facility] Spiriva HandiHaler 18 MCG Capsule Provide r: Diagnosis: Last Documented On 8 10:26AM By MAMADOU BURKS ; [facility] Zolpidem Tartrate 10 MG Tablet Provider: Diagnosis: Last Documented On 8 10:26AM By MAMADOU BURKS ; [facility] Current Medications (continue as prescribed) Albuterol Sulfate 1.25MG/3ML Inhalation Nebuliza tion solution 08/11/2017 Provider: Diagnosis: Last Documented On 8 10:27AM By MAMADOU BURKS ; [facility] Paxil 40MG Oral Tablet 03/01/2017 Provider: Diagnosis: Last Documented On 7 2:51PM By MAMADOU BURKS ; [facility] Breo Ellipta 200-25MCG/INH I nhalation Aerosol Powder Breath Activated 03/01/2017 Provider: Diagnosis: Last Documented On 7 2:52PM By MAMADOU BURKS ; [facility] Ambien 10MG Oral Tablet 03/01/2017 Provider: Diagnosis: Last Documented On 7 2:53PM By MAMADOU BURKS ; [facility] Bentyl 20MG Oral Tablet 03/01/2017 Provider: Diagnosis: takes 40mg Last Documented On 7 2:54PM By MAMADOU BURKS ; [facility] Vicodin 5-300MG Oral Tablet 03/01/2017 Provider: Diagnosis: Last Documented On 7 2:54PM By MAMADOU BURKS ; [facility] PriLOSEC OTC 20MG Oral Tablet Delayed Release 03/01/20 Provider: Diagnosis: Last Documented On 7 2:55PM By MAMADOU BURKS ; [facility] Mometasone Furoate 0.1% External Ointment 03/01/2017 Provider: Diagnosis: Last Documented On 7 2:56PM By MAMADOU BURKS ; [facility] Ibuprofen 600MG Oral Tablet 03/01/2017 Provider: Diagnosis: prn Last Documented On 7 2:56PM By MAMADOU BURKS ; [facility] PARoxetine HCl 40 MG Tablet 11/03/2014 Provider: Diagnosis: Last Documented On 5 2:48PM By NEGRITA COTTER LPN ; [facility] ALPRAZolam 0.5 MG Tablet 10/17/2014 Provider: Diagnosis: Last Documented On 5 2:48PM By NEGRITA COTTER LPN ; [facility] Pravastatin Sodium 40 MG Tablet 08/12/2014 Provider: Diagnosis: Last Documented On 5 2:48PM By NEGRITA COTTER LPN ; [facility] Past Medications on file Clindamycin Phosphate 2% Vaginal Cream 08/05/2017 - 08/12/2017 Provider: SARAH COPELAND Diagnosis: Acute vaginitis as directed 1 CHRISTY IN VAGINA EVERY NIGHT X 7 Last Documented On 8 12:16PM By SARAH CRISTOBAL ; [facility] Ciprofloxacin HCl 500MG Oral Tablet 08/03/2017 - 08/08/2017 Provider: SARAH COPELAND Diagnosis: Acute vaginitis One tablet twice a day TAKE DIRECTED W/FOOD Last Documented On 8 11:44AM By SARAH CRISTOBAL ; [facility] Medications Administered Includes: Administered Medications from this encounter No Administered Medications Recorded Vital Signs Includes: Vital Signs from this encounter Vital Name 08/11/2017 10:17A Blood Pressure Sitting (mmHg) 130/90 Height (in) 67.5 Weight (lb) 305 Body Mass Index (kg/m2) 47.1 Body Surface Area (m2) 2.4 Last Documented: On 08/11/2017 10:22A M ; [facility] Results Includes: Results discussed during this encounter No Results Recorded For Specified Dates History of Present Illness Includes: History of Present Illness from this encounter DONAVON LAZO is a 62 year old female. - Medication list reviewed - PRIMARY CARE PROVIDER : Dr Newell Pt has had pelvic pain: 'an ache' 'like the pain when i ovulated in the past'. This has been since 2014 but it got better for a while. She noticed it in jun 2017 every day, not as much in july 2017. Nothing she does can make it worse. It comes and goes: 1-2 min to 15-20 min intermittently. For evaluation she had pelvic u/s done 08/08 that showed normal pelvis: uterus 7.6 x 3.9 x 5.0 cm with an EMC of 1.8 mm and normal ovaries. CA-125 was 9. Urine C&S was negative. She presents now for follow up Social History Description Last Updated In monogamous relationship 08/03/2017 Last Documented On 8 10:15AM ; [facility] Marital history 08/03/2017 Last Documented On 8 10:15AM ; [facility] Not exercising regularly 08/03/2017 Last Documented On 8 10:15AM ; [facility] Not using alcohol 08/03/2017 Last Documented On 8 10:15AM ; [facility] Not using drugs 08/03/2017 Last Documented On 8 10:15AM ; [facility] Sexually active with 1 partners in the l ast year 08/03/2017 Last Documented On 8 10:15AM ; [facility] Smoking status : Never smoker 08/03/2017 Last Documented On 8 10:15AM ; [facility] Procedures and Surgical History Includes: Procedures from this encounter Procedures Code Diagnosis Performing Provider Service L ocation Service Date Clinical summary provided to patient Last Documented On 8 11:38AM ; [facility] Surgical History Last Updated Previous colposcopy 08/11/2017 Last Documented On 8 11:42AM ; [facility] Dilation + Curettage ---Jen block in about 2004 with hysteroscopy---? not sure why 11/05/2014 Last Documented On 8 10:15AM ; [facility] Surgical / procedural histor y 1998 Lt knee ACL reconstruction ~1999 Rt knee repair - lateral release ~Lt plantar faciotomy ~2001 Lt hemicolectomy also left ovary removed due to Dr Schmitz nicked it during hemicolectomy ~2010 repair of abdominal hernia with mesh x 2 ~2010 bowel resection 11/05/2014 Last Documented On 8 10:15AM ; [facility] History of tubal ligation 1982 5 Last Documented On 8 10:15AM ; [facility] Medical History Includes: Medical History addressed during this encounter Description Last Updated Last pap smear date 03/02/2017 8 Last Documented On 8 11:42AM ; [facility] History of irritable bowel syndrome 07/15 Last Documented On 8 10:15AM ; [facility] History of complete colonoscopy 03/17/20 17 polyps repear in 3 years, [facility] 08/03/2017 Last Documented On 8 10:15AM ; [facility] LMP: 201008/03/2017 Last Documented On 8 10:15AM ; [facility] History of a DXA of the lateral lumbar s pine was performed 11/27/2014 08/03/2017 Last Documented On 8 10:15AM ; [facility] History of Pap smear done 03/02/2017 Last Documented On 8 10:15AM ; [facility] Depression 03/01/2017 Last Documented On 8 10:15AM ; [facility] A colonoscopy was performed scheduled fo r 03/17/17 03/01/2017 Last Documented On 8 10:15AM ; [facility] Last mammogram date: 09/23/2014 7 Last Documented On 8 10:15AM ; [facility] Patient recently had a dexa scan 11/27/2014 -- years ago when on prednisone: 'it was good' 03/01/2017 Last Documented On 8 10:15AM ; [facility] Result: normal 03/01/2017 Last Documented On 8 10:15AM ; [facility] Result: normal 03/01/2017 Last Documented On 8 10:15AM ; [facility] Anxiety 11/05/2014 Last Documented On 8 10:15AM ; [facility] Colon cancer in 2002: no chemo or radiat ion 11/05/2014 Last Documented On 8 10:15AM ; [facility] 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 10/15 Last Documented On 8 10:15AM ; [facility] Cervical dysplasia with Dr Marilyn duongi: in the : colp/bx/cone bx/ then freezing: nl since then 11/05/2014 Last Documented On 8 10:15AM ; [facility] Aborta 1 at 6wks with D&C 11/05/2014 Last Documented On 8 10:15AM ; [facility] Vaginal delivery x 3: 6 8lb 7oz male hemorrhaged ~11/15/77 7lb 8oz male ~09/25/81 7lb 6oz female ~3rd child at age 16 of avelrhabdomyosarcoma 11/05/2014 Last Documented On 8 10:15AM ; [facility] History of urinary tract infection 11/05 Last Documented On 8 10:15AM ; [facility] History of asthma 11/05/2014 Last Documented On 8 10:15AM ; [facility] History of fibrocystic disease of breast 11/05/2014 Last Documented On 8 10:15AM ; [facility] History of hyperlipidemia 11/05/2014 Last Documented On 8 10:15AM ; [facility] History of thyroid disorder nodules 10/15 Last Documented On 8 10:15AM ; [facility] Sexually active 11/05/2014 Last Documented On 8 10:15AM ; [facility] 4 11/05/2014 Last Documented On 8 10:15AM ; [facility] History of screening mammogram was perfo rmed 09/23/2014 11/05/2014 Last Documented On 8 10:15AM ; [facility] Para 3 11/05/2014 Last Documented On 8 10:15AM ; [facility] Family History Includes: Family History addressed during this encounter Description Last Updated Maternal aunt's history of F amily history of breast neoplasm malignant mat aunt in her 60's 03/01/2017 Last Documented On 8 10:15AM ; [facility] Family history of diabetes mellitus Moth er, brother, & MGF 11/05/2014 Last Documented On 8 10:15AM ; [facility] Family history of heart disease parents 11/05/2014 Last Documented On 8 10:15AM ; [facility] Family history of hypercholesterolemia M other & brothers 11/05/2014 Last Documented On 8 10:15AM ; [facility] Family history of hypertension parents 0 11/05/2014 Last Documented On 8 10:15AM ; [facility] Review of Systems Includes: Review of Systems from this encounter No Review of Systems Recorded Mental Status Includes: Mental Status from this encounter Description Anxiety Functional Status Includes: Functional Status from this encounter No Functional Status Recorded Physical Exam Includes: Physical Exam from this encounter Allergies Includes: Active Allergies Substance Type Reaction Onset Date Resolved Date Statu s Zithromax Allergy 11/05/2014 Active Last Documented On 8 11:03AM ; [facility] Xopenex Concentrate Allergy 11/05/2014 Active Last Documented On 8 11:03AM ; [facility] Quinolones Allergy 08/05/2017 Active Last Documented On 8 12:00PM ; [facility] Levaquin Allergy 11/05/2014 Active Last Documented On 8 11:03AM ; [facility] Latex Allergy 11/05/2014 Active Last Documented On 8 11:03AM ; [facility] Effexor XR Allergy 03/01/2017 Active Last Documented On 8 11:03AM ; [facility] Ceftin Allergy 11/05/2014 Active Last Documented On 8 11:03AM ; [facility] Encounters Encounter Provider Location Date Check-In Time Check-Out Time Diagnosis [facility]OBLE[facility] 08/12/19 18 10:14AM 11:00AM Ventral Hernia Insurance Includes: Active Insurance Policies Plan Name Member ID Group # Subscriber Relationship Effect matthew Dates 1 - [facility] [id number] LEAH LAZO Self Clinical Notes Includes: Clinical Notes from this encounter No Clinical Notes Recorded
--- OUTSIDE RECORDS SUMMARY | 2024-06-19 17:30 | XMS_ITS ---
Care Plan - [facility] Created on: June 19, 2024 LEAH LAZO : 1955 Sex: Female Author Organization [facility] Address [address] [place] [address] Phone Care Team Providers Care Boatbuilder Apprentice Wood Name Role Phone LAVON OTERO, JOEL Sims Unavailable [phone]
--- OUTSIDE RECORDS SUMMARY | 2024-06-19 17:30 | XMS_ITS | Referral Summary ---
Author Organization [facility] Address [address] [place] [address] Care Team Providers Care Office Support Specialist Name Role Phone Zainab Anna DO Primary Care Provider [phone] [facility]non-owned Affiliates and Associated Physician Practices is amultiple site organization consisting of ambulatory clinics and hospital sitesin [place], [place] and [place]. This disclosure is being madepursuant to the Care Everywhere program and may not contain all information available regarding this patient. Last updated 18.[facility] Allergies Active Allergy Reactions Criticality Noted Date [...] Active mometasone (NASONEX) 50 MCG/ACT nasal spray [place] 1 spray into each nostril 2 times [...] Comments Blood Pressure 112/67 05/14/2020 9:10 AM SENIOR TECHNICAL RECRUITER Pulse 65 05/14/2020 9:10 AM SENIOR TECHNICAL RECRUITER Temperature 37.2 ??C (98.9 ??F) 05/14/2020 8:20 AM CS T Respiratory Rate 16 05/14/2020 9:10 AM SENIOR TECHNICAL RECRUITER Oxygen Saturation 98% 05/14/2020 9:10 AM SENIOR TECHNICAL RECRUITER Inhaled Oxygen Concentration - - Weight 148.1 kg (326 lb 6.4 oz) 05/14/2020 8:20 AM SENIOR TECHNICAL RECRUITER Height 170.2 cm (5' 7 ) 05/14/2020 8:20 AM SENIOR TECHNICAL RECRUITER Body Mass Index 51.12 05/14/2020 8:20 AM SENIOR TECHNICAL RECRUITER Plan of Treatment Not on file Care Teams Office Support Specialist Relationship Specialty Start Date End Date Zainab Anna DO PCP - General Family Medicine 05/14/20
--- OUTSIDE RECORDS SUMMARY | 2024-06-19 17:31 | XMS_ITS | Continuity of Care Document ---
Author Organization [employer] Scheduling [facility] [place] Address [address] [facility] [address] [address] Phone Care Team Providers Care Agency Sales Director Name Role Phone Kendra OTERO, [place] Unavailable [...] BENTYL (unknown strength) Not Available - Active Neurontin 600 mg tablet take 1 tablet by oral route 4 times every day 600 MG - Active Xanax 0.5 mg tablet take 1 tablet by oral route 3 times every day 0.5 MG - Active Advil 100 mg tablet take 2 tablet by oral route every 4 - 6 hours as needed with food - Active Aspercreme (lidocaine) 4 % topical as needed - Active Benadryl 25 mg capsule take 2 capsule by oral route every 4 - 6 hours as needed 50 MG - Active Paxil 40 mg tablet - Active Ambien 10 mg tablet - Active Spiriva with HandiHaler 18 mcg and inhalation capsules - Active VICODIN (unknown strength) Not Available - Active Procedures Procedure Date Office/outpatient Visit, [...] Copied on Encounter Office/outpa tient Visit, [facility], [address] [facility] [address], [place], [place], [id number], [place] tel:[phone] SEC Kendall [place] Professional 1 week Corneal abrasion f/u (chief complaint) Abrasion of right cornea, subsequent encounter 8 Kendra Downing. [address] [place], [address], [place]. tel:[phone] Referring Provider: [place] Gardner, [address] [place], [address]. tel:[phone] Office/outpa tient Visit, [facility] [place], [address], [place], [place], [id number], [place] tel:[phone] SEC Kendall [place] Professional 1 day f/u to Corneal abrasion (chief complaint) Abrasion of right cornea, subsequent encounter 0 8 Joseph Quinones. [address] [facility], [address], [place], [place], [address], [place]. tel:[phone] Referring Provider: [place] Gardner, [address] [place], [address]. tel:[phone] Office/outpa tient Visit, [facility] [place], [address], [place], [place], [id number], [place] tel:[phone] SEC Kendall [place] Professional Irritated eye (chief complaint) Abrasion of right cornea, initial encounter Oct-0 8 Li ERIK Kelly. [address] [facility] [address], [place], [address], [place]. tel:[phone] Referring Provider: [place] Gardner, [address] [facility], [place], [address]. tel:[phone] [facility], [address] [place] [address] [address], [place], [place], [address], [place] tel:[phone] SEC Kendall [place] Professional Complete Exam (chief complaint) ABMD (anterior basement membrane dystrophy)End othelial corneal dystrophyRPE mottling of maculaAge-rel ated nuclear cataract, right eyeCombined forms of age-related cataract, left eyeCorneal scar, right eyeRetinal scar of both eyes 2-201 8 Kendra Downing. [address] [place], [address], [place]. tel:[phone] Referring Provider: [place] Gardner, [address] [place], [address]. tel:[phone] [facility], [address] [place] [address] [address], [place], [place], [address], [place] tel:[phone] SEC Adi Haskins [place] No Information 9-201 8 Gardner [place]. [address] [place], [place], [facility], . tel:[phone] Office/outpa tient Visit, [facility], [address], [place], [place], [address], [place] tel:[phone] SEC Kendall [place] Professional Follow up visit (chief complaint) No Information 7 Gardner [place]. [address] [place], [address], . tel:[phone] Referring Provider: Luis Sanders [address] [place], [address] . tel:[phone] Office/outpa tient Visit, [facility], [address] [place] [address] [address], [place], [place], [address], [place] tel:[phone] SEC Kendall [place] Professional 2 day Cornea check (chief complaint) No Information 3 0-201 7 Gardner [place]. [address] [place], [place], [facility], . tel:[phone] Referring Provider: Luis Sanders [address] [facility] [place], [address] . tel:[phone] Office/outpa tient Visit, [facility], [address] [place] [address] [address], [place], [place], [address], [place] tel:[phone] SEC [facility] office visit (chief complaint) No Information 2 8-201 7 Gardner [place]. [address] [place], [place], [facility], [place]. tel:[phone] Referring Provider: Luis Iamwendydeborah Sanders, [address] [facility] [address], [place], [address] . tel:[phone] [facility], [address] [place] [address] [address], [place], [place], [address], tel:[phone] SEC Skippers N [address] No Information Nov-0 7 Iamwendydeborah Luis. [address] [facility], [place], [place], [address], [place]. tel:[phone] Referring Provider: Luis Sanders, [address] [facility] [address], [place], [address] . tel:[phone] Office/outpa tient Visit, [facility] [place], [address] [place] [address] [address], [place], [place], [address], tel:[phone] SEC Kendall [place] Professional 1 week follow up (chief complaint) No Information Darrin-2 7 Gardner [place]. [address] [place], [place], [facility], . tel:[phone] Referring Provider: Luis Iamwendydeborah Sanders, [address] [facility] [address], [place], [address] . tel:[phone] Office/outpa tient Visit, [facility] [place], [address] [place] [address] [address], [place], [place], [address], [place] tel:[phone] SEC True N Lindberg Follow up visit (chief complaint) No Information Darrin-0 7 Gardner [place]. [address] [place], [place], [facility], . tel:[phone] Referring Provider: Luis Sanders, [address] [facility] [address], [place], [address] . tel:[phone] Office/outpa tient Visit, [facility] [place], [address], [place], [place], [address], tel:[phone] SEC Kendall [place] Professional Pain (chief complaint) No Information Darrin-0 7-201 7 Clifford Smith. [address], [place], [place], [address], . tel:[phone] Referring Provider: Luis Iamwendydeborah Sanders, [address], [place], [address] . tel:[phone] Office/outpa tient Visit, [facility] [place], [address] [place] [address] [address], [place], [place], [address], tel:[phone] SEC [place] Professional Blurry vision (chief complaint) No Information Nov- 2-201 6 Delanson Ray. [address] [place] [address] [address], [address], [place], [place], [address], . tel:[phone] Referring Provider: Luis Horton Marilyn, [address], [place], [address] . tel:[phone] [facility], [address], [place], [place], [address], tel:[phone] [facility] [place] Professional evaluation (chief complaint) No Information Jul-3 0-201 6 Clifford Smith. [address], [place], [place], [address], . tel:[phone] Referring Provider: Luisjuan Vitalewendydeborah Sanders, [address], [place], [address] . tel:[phone] Family History Family Member Type Diagnosis Age At Onset Problem (finding) Family history of degenerative disorder of macula Problem (finding) Family history of Diabe jakob mellitus Problem (finding) Family history of Strab ismus Payers Payer name Insurance type Covered libertarian ID Authoriza tion(s) [employer] [id number] Social History Type Description Quantity Date Captured [...] OD and AFT's, pt was supposed to case picker rx for José Antonio but has [...] repair c/laser OD. Pt reports she has KENEYTTA and used to take Restasis but quit [...] states that 40 years ago she had Jeff Palsy. Functional Status Date Functional Assessmen t [...] right eye Impression/Plan - Co ndition appears stable, pachs are stable. Will continue to monitor. Will recheck pachs at next visit. 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 Cataracts not visually significant, will monitor. Impression/Plan - sc ars OU stable, will continue to monitor. 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 Recommend José Antonio 128 ointment QHS OU. Erx to [facility]. Continue artificial tears QID OU. Will [...] -0.25. Start Tobramycin QID OD. Erx to [facility]. Return to clinic in 2 days at [facility] office for follow up, lensometry and K-check [...] 128 in OS at night. Erx to [facility]. RTC in 1 year. Impression/Plan - [...] eye starts to feel better. Erx to [facility]. Gave sample of Systane Balance. RTC in 1 week for follow up. 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 Start Tobrex 1gtt QID OD until healed. Erx to [facility]. Inserted BCL Night and Day 8.6 13.8 +0.25. Return to clinic in 2 days for follow up or sooner with any problems. Combined forms of ag e-related cataract, bilateral - Surgery advised; risks, benefits, alternatives discussed. Related to Combined forms of age-related cataract, bilateral Follow up - sched ce OD 1st Impression/Plan - Di scussed corneal and lens [...] watch video prior to meeting with the cloth cutting machine operator. Pt is anxious. Pt is a nurse. Fuchs' corneal dystr ophy - Educational material provided Related to Fuchs' corneal dystrophy Follow up - Return t o clinic in 6 weeks for Restasis follow up Impression/Plan - Di scussed cataracts with pt [...] burning sensation is normal. Erx Restasis to [facility]. Patient to return to office in 6 weeks for Restasis follow up or sooner with any problems. Assessments Type Assessment Date assessment Abrasion of right cornea, subseq uent encounter impression Abrasion of right cornea, subseq uent encounter: S05.01xD Patient Care Teams Name Effective Dates (start - stop) Status Members No Information
--- OUTSIDE RECORDS SUMMARY | 2024-06-19 17:31 | XMS_ITS | Clinical Summary ---
Author Organization [facility] [place] Address [address] [place] [address] Care Team Providers Care Information Analyst Name Role Phone Souleymane Jackson MD Unavailable [phone] Lupillo Brownlee MD Unavailable [phone] Yossi Caro MD Unavailable [phone] Avery Lux MD Unavailable [phone] Raf Ovalles MD Unavailable [phone] Sindy Hatch MD Unavailable [phone] Saleem Rod MD Primary Care Provider [phone] Allergies Active Allergy Reactions Criticality Noted Date Comments Azithromycin Hives Reaction: hives, , Reaction: hives, , , Reaction: hives, , Reaction: hives, Cefprozil Itching Low Reaction: pruritis, Cefuroxime Itching,Hives Reaction: itching, , Reaction: hives, , , Reaction: pruritis, Clarithromycin Other (See comments) Reaction: g.i. intolerance, Latex Itching Low Reaction: Itching, , , Levalbuterol Hypotension High xopenex Levofloxacin Anaphylaxis Reaction: anaphylactic, , , , Reaction: anaphylaxis, Venlafaxine Dizziness Low 02/19/2019 Medications magnesium oxide (MAG-OX) 400 mg (241.3 mg elemental magnesium) tablet Take 2 tablets (800 mg total) by mouth 2 (two) times a day 06/17/ 2021 Active Eliquis 5 mg tablet Take 1 tablet by mouth twice daily 180 tablet 2020 Active ipratropium-albuteroL (DUO-NEB) 0.5-2.5 mg/3 mL nebulizer solutionIndications:Ch ronic Obstructive Pulmonary Disease with Bronchospasms Take 3 mL by nebulization every 6 (six) hours 360 mL 6 2021 Active lidocaine HCL 4 % cream Apply topically Active menthol (COUGH DROPS MM) Apply to mouth Activ e dofetilide (TIKOSYN) 500 mcg capsuleIndications:car diac arrhythmia Take 1 capsule (500 mcg total) by mouth 2 (two) times a day 90 capsule 3 2022 Active ezetimibe (ZETIA) 10 mg tablet Take 1 tablet (10 mg total) by mouth daily Active naloxone (NARCAN) 4 mg/actuation spray,non-aerosolIndic ations: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 Administer 1 spray into affected nostril(s) as needed for opioid reversal or respiratory depression 1 each 2022 Active diltiaZEM (CARDIZEM) 120 mg tablet Take 1 tablet (120 mg total) by mouth 3 (three) times a day 2023 Active losartan (COZAAR) 50 mg tablet Take 1 tablet (50 mg total) by mouth daily 90 tablet 2023 Active mometasone (ELOCON) 0.1 % cream Apply topically daily 45 g 1 2023 Active dicyclomine (BENTYL) 20 mg tabletIndications:Irri table bowel syndrome with diarrhea Take 1 tablet (20 mg total) by mouth every 6 (six) hours 360 tablet 2023 Active albuterol HFA (PROVENTIL HFA,VENTOLIN HFA,PROAIR HFA) 90 mcg/actuation inhaler Inhale 2 puffs every 6 (six) hours as needed for wheezing or shortness of breath 1 each 3 2023 Active zolpidem (AMBIEN) 10 mg tablet Take 1 tablet by mouth nightly 30 tablet 5 2023 Active omeprazole (PriLOSEC) 40 mg capsule Take 1 capsule by mouth once daily 100 capsule 1 2023 Active HYDROcodone-acetaminop hen (NORCO) 10-325 mg per tabletIndications:Pain Take 1 tablet by mouth 4 (four) times a day as needed for pain 120 tablet 07/12 Active HYDROcodone-acetaminop hen (NORCO) 10-325 mg per tabletIndications:Pain Take 1 tablet by mouth 4 (four) times a day as needed for pain 120 tablet 08/11 Active pravastatin (PRAVACHOL) 40 mg tabletIndications:Pure hypercholesterolemia TAKE 1 TABLET BY MOUTH ONCE DAILY AT NIGHT 90 tablet 2024 Active PARoxetine (PAXIL) 40 mg tabletIndications:Gene ralized anxiety disorder,Mild episode of recurrent major depressive disorder (HCC) Take 1 tablet by mouth once daily 100 tablet 2024 Active doxycycline (VIBRAMYCIN) 100 mg capsule Take 1 tablet/capsule (100 mg total) by mouth 2 (two) times a day for 5 days 10 tablet/cap liberty 06/24 Active predniSONE (DELTASONE) 20 mg tablet Take 2 tablets (40 mg) by mouth daily 10 tablet 2024 Active pravastatin (PRAVACHOL) 40 mg tabletIndications:Pure hypercholesterolemia TAKE 1 TABLET BY MOUTH ONCE DAILY AT NIGHT 90 tablet 05/21 Discontinued PARoxetine (PAXIL) 40 mg tabletIndications:Gene ralized anxiety disorder,Mild episode of recurrent major depressive disorder (HCC) Take 1 tablet by mouth once daily 100 tablet 06/06 Discontinued HYDROcodone-acetaminop hen (NORCO) 10-325 mg per tabletIndications:Pain Take 1 tablet by mouth 4 (four) times a day as needed for pain 120 tablet 06/12 Active Problems Problem Noted Date Diagnosed Date A-fib (CMS/HCC) 04/06/2024 Obstructive lung disease (generalized) 4 Assessment & Plan (02/28/2024 7:24 AM CDT): Severe pulm obstruction Stable at this time Follows up with pulm Continue albuterol prn, As per last pulm note had little benefit from inhalaed steroids in the past Defer furtgher changes to pulm No shortness of breath during the visit Assessment & Plan (10/17/2023 3:50 PM CDT): Severe obstruction on pulmonary function testing She has had little to no clinical benefit from inhaled bronchodilators or steroids in the past Continue albuterol as needed only, discussed indications for use Low threshold for initiation of maintenance inhaled therapy in the future if she were to become symptomatic Personal history of colon cancer 10/12/2023 Encounter for screening colonoscopy 10/12/2023 Annual physical exam 07/18/2023 Assessment & Plan (07/18/2023 3:23 PM [employer]ORTS TEAM MARKETING INTERN): Discussed lifestyle modifications, diet and exercise. Routine blood work ordered/reviewed today. Yearly vision and dental examinations. Neurogenic claudication due to lumbar spinal james nosis 02/15/2023 Neuralgia, geniculate 12/29/2022 Bilateral chronic knee pain 12/29/2022 Spondylosis of lumbar region without myelopathy or radiculopathy 12/29/2022 Morbid obesity with BMI of 40.0-44.9, adult 10/2022 Assessment & Plan (02/14/2024 1:38 PM CDT): Wt Readings from Last 3 Encounters: 02/02/24 130.2 kg (287 lb) 11/02/23 129.8 kg (286 lb 3.2 oz) 10/17/23 131.4 kg (289 lb 11.2 oz) BMI Readings from Last 3 Encounters: 02/02/24 44.95 kg/m?? 11/02/23 44.83 kg/m?? 10/17/23 45.37 kg/m?? Not at goal of bmi <30 Continue diet and exercise BMI Follow-up includes: nutrition counseling and exercise counseling. Worse at this time Assessment & Plan (07/18/2023 3:17 PM [employer]OR[employer] TE[employer] MARKETING INTERN): Wt Readings from Last 3 Encounters: 07/18/23 133.9 kg (295 lb 4.8 oz) 04/21/23 130.2 kg (287 lb) 04/14/23 127 kg (280 lb) BMI Readings from Last 3 Encounters: 07/18/23 46.24 kg/m?? 04/21/23 44.94 kg/m?? 04/14/23 43.85 kg/m?? Not at goal of bmi <30 Continue diet and exercise BMI Follow-up includes: nutrition counseling and exercise counseling. Worse at this time Assessment & Plan (11/18/2022 1:54 PM CDT): Wt Readings from Last 3 Encounters: 10/12/22 135.7 kg (299 lb 3.2 oz) 07/15/22 (!) 137 kg (302 lb) 07/09/22 (!) 139 kg (306 lb 7 oz) BMI Readings from Last 3 Encounters: 10/12/22 49.79 kg/m?? 07/15/22 49.12 kg/m?? 07/09/22 49.46 kg/m?? Not at goal of bmi <30 Continue diet and exercise BMI Follow-up includes: nutrition counseling and exercise counseling. Diffuse idiopathic pulmonary neuroendocrine cell hyperplasia 11/18/2022 Assessment & Plan (10/17/2023 3:53 PM CDT): Her imaging has been stable over the last year with no new or worrisome pulmonary nodules She is largely asymptomatic with no dyspnea or cough She has been evaluated at the [facility] by multidisciplinary conference and deemed to be high risk for a lung biopsy Continue annual CT to follow the nodules. If her symptoms worsen, consider a dotatate PET scan to confirm DIPNECH and possible referral to oncology to see if somatostatin inhibitors would be an option for treatment. She was made aware of reportable signs and symptoms Atypical atrial flutter (CMS/HCC) 07/05/2022 Overview (07/11/2022): Added automatically from request for surgery [id number] Assessment & Plan (07/18/2023 3:16 PM [employer]OR[employer] TE[employer] MARKETING INTERN): S/p pacemaker Fopllowing with cardio Continue eliquis 5 mg bid Continue rate control medications C/w cardizem 120 mg tid Assessment & Plan (11/18/2022 2:08 PM CDT): S/p pacemaker Fopllowing with cardio Continue eliquis 5 mg bid Continue rate control medications C/w cardizem 300 mg 24 hr every day, tikosin 500 mg bid Thrush, oral 05/06/2021 Assessment & Plan (05/06/2021 7:39 AM SPORTS TEAM MARKETING INTERN): Treat with diflucan weekly x 4. Clotrimazole trochs qid prn. Her inhaler has been changed due to thrush by pulmonology Medicare annual wellness visit, subsequent 05/03 Assessment & Plan (05/06/2021 7:38 AM SPORTS TE[employer] MARKETING INTERN): Patient Counseling: --Nutrition: Stressed importance of moderation in sodium/caffeine intake, saturated fat and cholesterol, caloric balance, sufficient intake of fresh fruits, vegetables, --Exercise: Stressed the importance of regular exercise. --Injury prevention: Discussed safety belts, throw rugs in house, smoke detectors, --Dental health: Discussed importance of regular tooth brushing, flossing, and dental visits. --Immunizations reviewed and offered --Discussed benefits of screening colonoscopy.- utd --females- mammograms offered if applicable/ needed.- scheduled History of colon polyps 02/09/2021 Overview (02/09/2021): Added automatically from request for surgery [id number] Intestinal bypass and anastomosis status 021 Overview (02/09/2021): Added automatically from request for surgery [id number] Gastroesophageal reflux disease 02/09/2021 Overview (02/09/2021): Added automatically from request for surgery [id number] Cardiac pacemaker 12/29/2020 Overview (12/29/2020): Wendy Jordan Shortness of breath 11/03/2020 Sick sinus syndrome (CMS/HCC) 09/10/2020 Anemia 01/31/2020 Overview (04/27/2021): (History of) Anxiety 01/31/2020 Overview (04/27/2021): (History of) Encounter for screening for cardiovascular disor ders 01/31/2020 Hyperlipidemia 01/31/2020 Assessment & Plan (07/15/2022 1:45 PM [employer]ORTS TE[employer] MARKETING INTERN): Lab Results Component Value Date CHOL 206 (H) 04/27/2021 CHOL 179 03/10/2020 CHOL 185 11/01/2016 Lab Results Component Value Date HDL 70 04/27/2021 HDL 62 03/10/2020 HDL 42 11/01/2016 Lab Results Component Value Date LDLCALC 119 04/27/2021 LDLCALC 99 03/10/2020 LDLCALC 115 11/01/2016 LDL 117 06/13/2013 LDL 135 (H) 12/26/2012 SCRLDL 115 11/01/2016 Lab Results Component Value Date TRIG 87 04/27/2021 TRIG 92 03/10/2020 TRIG 142 11/01/2016 No results found for: POCCHDLR No results found for: POCNONHDL No results found for: POCCHLPL Lung nodule 12/14/2019 Overview (12/14/2019): Managed by pulmonology long-term current use of anticoagulant 9 Assessment & Plan (07/15/2022 1:43 PM [employer]ORTS TE[employer] MARKETING INTERN): Continue eliquis 5 mg bid for afib Essential hypertension 04/11/2019 Assessment & Plan (02/14/2024 1:38 PM CDT): BP Readings from Last 3 Encounters: 02/02/24 128/74 01/31/24 134/74 11/03/23 141/65 There were no vitals taken for this visit. Lab Results Component Value Date POTASSIUM 4.5 09/01/2023 at goal at this time C/w losartan 50 mg qd C/w [id number] mg tid every day Assessment & Plan (07/18/2023 3:41 PM SPORTS TE[employer] MARKETING INTERN): BP Readings from Last 3 Encounters: 07/18/23 138/88 06/29/23 166/98 04/21/23 143/85 Vitals BP 138/88 (BP Location: Left arm, Patient Position: Sitting) Pulse 85 Resp 16 Ht 170.2 cm (5' 7.01 ) Wt 133.9 kg (295 lb 4.8 oz) SpO2 93% BMI 46.24 kg/m?? Lab Results Component Value Date POTASSIUM 4.7 08/11/2022 Not at goal at this time - multiple elevated bps recently Start losartan 50 mg qd C/w [id number] mg tid every day Assessment & Plan (11/18/2022 1:56 PM CDT): BP Readings from Last 3 Encounters: 10/12/22 130/89 09/13/22 148/85 07/15/22 140/80 There were no vitals taken for this visit. Lab Results Component Value Date POTASSIUM 4.7 08/11/2022 C/w cardizem 300 mg every day Assessment & Plan (07/15/2022 1:44 PM SPORTS TE[employer] MARKETING INTERN): BP Readings from Last 3 Encounters: 07/15/22 140/80 07/12/22 98/58 07/05/22 132/69 Vitals BP 140/80 Pulse 101 Resp 14 Ht 167 cm (5' 5.75 ) Wt (!) 137 kg (302 lb) SpO2 97% BMI 49.12 kg/m?? Lab Results Component Value Date POTASSIUM 4.6 07/12/2022 Slightly elevated today - cardizem 300 mg every day Last visit - bp was low Will not make any changes Assessment & Plan (04/27/2021 3:07 PM SPORTS TE[employer] MARKETING INTERN): Pt needs f/u with PCP for HMV Labs ordered to do prior to OV. Assessment & Plan (02/14/2020 10:31 PM CDT): Elevated, patient encouraged to notify transmission calibration engineer. Cont current meds. Assessment & Plan (07/06/2019 2:46 PM SPORTS TE[employer] MARKETING INTERN): Clinically improved, continue current meds. long-term (current) use of opiate analgesic 03/16 Osteoarthritis of knee 02/19/2019 Influenza vaccine refused 02/19/2019 Assessment & Plan (02/19/2019 4:38 PM CDT): Patient has an egg sensitivity. Non-seasonal allergic rhinitis 11/16/2018 Assessment & Plan (02/19/2019 5:38 PM CDT): Stable, managed by pulmonology. Generalized anxiety disorder 11/13/2018 Assessment & Plan (02/14/2020 10:32 PM CDT): Stable. Cont. Current meds. Assessment & Plan (07/06/2019 2:47 PM SPORTS TE[employer] MARKETING INTERN): D/C Xanax, switched to Clonazepam today. Assessment & Plan (02/19/2019 5:36 PM CDT): Clinically improved, continue current meds. LUPE on CPAP 11/13/2018 Assessment & Plan (02/14/2020 10:33 PM CDT): Clinically improved. Will benefit from continuous use of CPAP. Encouraged continued compliance. Assessment & Plan (02/19/2019 5:37 PM CDT): Clinically improved. Will benefit from continuous use of CPAP. Encouraged continued compliance. Managed by Pulmonology. Assessment & Plan (11/16/2018 10:17 PM CDT): Clinically improved. Will benefit from continuous use of CPAP. Encouraged continued compliance. Managed by Pulmonology. O2 dependent 11/13/2018 Overview (12/29/2020): On O2 @ 4 L Paroxysmal atrial fibrillation ([facility]) 019 Assessment & Plan (02/14/2024 1:38 PM CDT): Continue cardizem, and eliquis Following with cardi Rate controlled today Assessment & Plan (07/15/2022 1:45 PM SPORTS TE[employer] MARKETING INTERN): Continue cardizem, and eliquis Following with cardi Rate controlled today Assessment & Plan (02/14/2020 10:34 PM CDT): Managed by cardiology. Assessment & Plan (07/06/2019 2:47 PM SPORTS TE[employer] MARKETING INTERN): NSR today. Asx. Managed by cardiology. Assessment & Plan (02/19/2019 5:37 PM CDT): Asx. Continue current therapy. Managed by cardiology. Fibromyalgia 02/22/2018 Chronic pain syndrome 02/13/2018 Assessment & Plan (07/18/2023 3:15 PM SPORTS TE[employer] MARKETING INTERN): Follows with pain mgmt Assessment & Plan (02/14/2020 10:34 PM CDT): Managed by Pain specialist. Assessment & Plan (02/19/2019 5:36 PM CDT): Managed by Pain mgmt. Assessment & Plan (11/16/2018 10:17 PM CDT): Managed by pain mgmt. Arthralgia of elbow 10/19/2016 Fracture of head of radius 10/19/2016 Female pelvic pain 11/05/2014 Overview (04/27/2021): Note: Unchanged Fibrocystic breast changes 11/05/2014 Overview (04/27/2021): Note: Unchanged Malignant neoplasm of colon 11/05/2014 Overview (04/27/2021): Note: Unchanged - in 2001: no chemo or radiation Stricture and stenosis of cervix 11/05/2014 Overview (04/27/2021): Note: Unchanged - with Dr Walton: in the 's: colp/bx/cone bx/ then freezing: nl since then Note: Unchanged Generalized osteoarthritis 09/29/2013 Overview (08/18/2016): GENERAL OSTEOARTHROSIS Irritable bowel syndrome with diarrhea 4 Overview (08/20/2016): IRRITABLE BOWEL SYNDROME Gastroesophageal reflux disease with esophagitis 09/29/2013 Overview (07/06/2019): Assessment & Plan (02/09/2021 2:03 PM CDT): egd and increase ppi to 40 mg daily Assessment & Plan (02/14/2020 10:32 PM CDT): Asx. Continue current therapy. Assessment & Plan (07/06/2019 2:46 PM SPORTS TE[employer] MARKETING INTERN): Stable. Cont. Current meds. Assessment & Plan (02/19/2019 5:36 PM CDT): Stable. Continue current therapy. Assessment & Plan (11/16/2018 10:11 PM CDT): Stable. Cont. Current meds. Mild episode of recurrent major depressive disor domenico 09/29/2013 Assessment & Plan (07/18/2023 3:37 PM SPORTS TEAM MARKETING INTERN): Not quite at goal at this time , worsening due to life stressors, weight gain, sthings at home with gradnddaugther she takes care of Continue paxil 40 mg every day Start wellbutrin 150 mg xl every day Assessment & Plan (02/14/2020 10:32 PM CDT): Clinically improved, continue current meds. Assessment & Plan (07/06/2019 2:46 PM SPORTS TE[employer] MARKETING INTERN): Stable. Cont. Current meds. Assessment & Plan (02/19/2019 5:36 PM CDT): Clinically improved, continue current meds. Class 3 severe obesity due t o excess calories with serious comorbidity and body mass index (BMI) of 40.0 to 44.9 in adult 09/29/2013 Overview (11/13/2018): Assessment & Plan (02/14/2024 1:58 PM CDT): Wt Readings from Last 3 Encounters: 02/14/24 126.4 kg (278 lb 11.2 oz) 02/02/24 130.2 kg (287 lb) 11/02/23 129.8 kg (286 lb 3.2 oz) BMI Readings from Last 3 Encounters: 02/14/24 43.64 kg/m?? 02/02/24 44.95 kg/m?? 11/02/23 44.83 kg/m?? Not at goal of bmi <30 Continue diet and exercise BMI Follow-up includes: nutrition counseling and exercise counseling. Assessment & Plan (07/18/2023 3:37 PM SPORTS TE[employer] MARKETING INTERN): Wt Readings from Last 3 Encounters: 07/18/23 133.9 kg (295 lb 4.8 oz) 04/21/23 130.2 kg (287 lb) 04/14/23 127 kg (280 lb) BMI Readings from Last 3 Encounters: 07/18/23 46.24 kg/m?? 04/21/23 44.94 kg/m?? 04/14/23 43.85 kg/m?? Not at goal of bmi <30 Continue diet and exercise BMI Follow-up includes: nutrition counseling and exercise counseling. Worsening as above Stasrt wellbutrin 150 mg xl and see if it helps Assessment & Plan (11/18/2022 1:54 PM CDT): Wt Readings from Last 3 Encounters: 10/12/22 135.7 kg (299 lb 3.2 oz) 07/15/22 (!) 137 kg (302 lb) 07/09/22 (!) 139 kg (306 lb 7 oz) BMI Readings from Last 3 Encounters: 10/12/22 49.79 kg/m?? 07/15/22 49.12 kg/m?? 07/09/22 49.46 kg/m?? Not at goal of bmi <30 Continue diet and exercise BMI Follow-up includes: nutrition counseling and exercise counseling. Assessment & Plan (07/15/2022 1:45 PM SPORTS TE[employer] MARKETING INTERN): Wt Readings from Last 3 Encounters: 07/15/22 (!) 137 kg (302 lb) 07/09/22 (!) 139 kg (306 lb 7 oz) 06/08/22 (!) 140.6 kg (310 lb) BMI Readings from Last 3 Encounters: 07/15/22 49.12 kg/m?? 07/09/22 49.46 kg/m?? 06/08/22 49.29 kg/m?? Not at goal of bmi <30 Continue diet and exercise BMI Follow-up includes: nutrition counseling and exercise counseling. Assessment & Plan (05/07/2021 7:43 PM SPORTS TEAM MARKETING INTERN): BMI Follow-up includes: nutrition counseling and exercise counseling. Assessment & Plan (04/27/2021 3:07 PM SPORTS TEAM MARKETING INTERN): Healthy, low carbohydrate lifestyle and exercise for 150min/week recommended Assessment & Plan (02/14/2020 10:35 PM CDT): Weight reduction, daily exercise and dietary modifications recommended. Assessment & Plan (07/06/2019 2:48 PM SPORTS TEAM MARKETING INTERN): Unchanged. Encouraged patient to decrease weight, increase daily exercise, and modify diet. Assessment & Plan (02/19/2019 5:39 PM CDT): Unchanged. Encouraged patient to decrease weight, increase daily exercise, and modify diet. Assessment & Plan (11/16/2018 10:14 PM CDT): Unchanged. Encouraged patient to decrease weight, increase daily exercise, and modify diet. History of malignant neoplasm of colon 4 Overview (08/20/2016): History of colon cancer Pure hypercholesterolemia 09/28/2012 Overview (07/06/2019): Assessment & Plan (02/14/2024 1:38 PM CDT): Lab Results Component Value Date CHOL 168 09/01/2023 CHOL 206 (H) 04/27/2021 CHOL 179 03/10/2020 Lab Results Component Value Date HDL 60 09/01/2023 HDL 70 04/27/2021 HDL 62 03/10/2020 Lab Results Component Value Date LDLCALC 119 04/27/2021 LDLCALC 99 03/10/2020 LDLCALC 115 11/01/2016 LDL 86 09/01/2023 LDL 117 06/13/2013 LDL 135 (H) 12/26/2012 SCRLDL 115 11/01/2016 Lab Results Component Value Date TRIG 119 09/01/2023 TRIG 87 04/27/2021 TRIG 92 03/10/2020 No results found for: POCCHDLR No results found for: POCNONHDL No results found for: POCCHLPL Needs repeat labs Assessment & Plan (07/18/2023 3:18 PM SPORTS TE[employer] MARKETING INTERN): Lab Results Component Value Date CHOL 206 (H) 04/27/2021 CHOL 179 03/10/2020 CHOL 185 11/01/2016 Lab Results Component Value Date HDL 70 04/27/2021 HDL 62 03/10/2020 HDL 42 11/01/2016 Lab Results Component Value Date LDLCALC 119 04/27/2021 LDLCALC 99 03/10/2020 LDLCALC 115 11/01/2016 LDL 117 06/13/2013 LDL 135 (H) 12/26/2012 SCRLDL 115 11/01/2016 Lab Results Component Value Date TRIG 87 04/27/2021 TRIG 92 03/10/2020 TRIG 142 11/01/2016 No results found for: POCCHDLR No results found for: POCNONHDL No results found for: POCCHLPL Needs repeat labs Assessment & Plan (02/14/2020 10:31 PM CDT): Controlled, cont current med. Assessment & Plan (07/06/2019 2:46 PM SPORTS TE[employer] MARKETING INTERN): Stable. Cont. Current meds. Assessment & Plan (02/19/2019 5:35 PM CDT): Stable. Cont. Current meds. Assessment & Plan (11/16/2018 10:11 PM CDT): Stable. Cont. Current meds. Hernia of anterior abdominal wall 12/07/2011 Overview (08/20/2016): VENTRAL HERNIA NOS Psoriasis 10/14/2008 Overview (07/06/2019): Assessment & Plan (07/06/2019 2:47 PM SPORTS TE[employer] MARKETING INTERN): Clinically improved, continue current meds. Resolved Problems Problem Noted Date Diagnosed Date Resolved Date Atrial fibrillation, chronic ([facility]) 07/09/2022 07/15/2022 COVID 03/09/2021 11/18/2022 Acute cystitis without hematuria 12/29/2020 05/03/2021 Assessment & Plan (12/29/2020 5:07 PM CDT): Prescription given. Increase water intake. Urine culture sent. Asthma 01/31/2020 11/18/2022 Facet arthritis, degenerative, lumbar spine 12/12/2019 06/29/2023 Sacroiliitis 12/12/2019 06/29/2023 Insomnia secondary to chronic pain 12/12/2019 06/29/2023 Assessment & Plan (02/14/2020 10:35 PM CDT): Managed by university president. Lumbar radiculopathy 09/20/2019 024 DDD (degenerative disc disea se), lumbar L4-5 and L5-S1 02/13/2018 06/29/2023 Chronic right-sided low back pain with right-sided sciatica 09/29/2013 06/29/2023 Overview (08/18/2016): SCIATICA Severe persistent asthma without complication 09/30/19 14 07/18/2023 Overview (12/14/2019): Managed by pulmonology Assessment & Plan (02/14/2020 10:33 PM CDT): Managed by pulmonology. At baseline. Assessment & Plan (02/19/2019 5:38 PM CDT): Improving, keep upcoming appt with Pulmonology. Assessment & Plan (11/16/2018 10:13 PM CDT): At baseline, cont current meds. Managed by Pulmonology. Encounters Date Type Department Care Team Description 06/19/2024 Orders Only [facility] at [address] [place] [address] Kevin Blanton MD 06/19/2024 Telephone [facility] at [address] [place] [phone] Carrie Murillo LPN sick call 06/01/2024 2:30 PM [employer] TE[employer]ETING INTERN Office Visit [facility] at [address] [place] [phone] Soha Mohan PA History of colon cancer (Primary Dx); Hemorrhoids, unspecified hemorrhoid type; S/P partial resection of colon; BRBPR (bright red blood per rectum); Epigastric pain; Gastric polyps 05/18/2024 Telephone [facility] [address] [place] [address] [address] [place] [address] Mary Baez NP 05/17/2024 1:15 PM [employer]ORTS TE[employer] MARKETING INTERN Office Visit [facility] [address] [place] [address] [address] [place] [phone] Mary Baez NP Primary osteoarthritis of right knee (Primary Dx); BMI 40.0-44.9, adult ([facility]) 05/14/2024 Telephone [facility] [address] [place] [address] [address] [place] [phone] Jeanette Samuel PA 05/03/2024 10:23 AM SPORTS TEAM MARKETING INTERN - 05/03/2024 11:59 PM [employer]ORTS TEAM MARKETING INTERN Hospital Encounter [facility] [address] [facility] [address] [place] [address] Uriel Vilchis MD Spondylosis of lumbar region without myelopathy or radiculopathy; Bilateral chronic knee pain Discharge Disposition: Discharge to home or self care 04/10/2024 2:30 PM [employer]ORTS TE[employer] MARKETING INTERN Anesthesia Event [facility] [address] [place] [address] Felicity Arias MD 04/10/2024 2:30 PM SPORTS TEAM MARKETING INTERN - 04/10/2024 3:00 PM SPORTS TEAM MARKETING INTERN Surgery [facility] [address] [place] [id number] Sindy Hatch MD Not Performed CARDIOVERSION 04/10/2024 1:09 PM SPORTS TEAM MARKETING INTERN - 04/10/2024 2:07 PM SPORTS TEAM MARKETING INTERN Hospital Encounter [facility] [address] [place] [id number] Sindy Hatch MD Discharge Disposition: Discharge to home or self care 04/06/2024 Orders Only [facility] Cardiac Catheterization Lab [address] [place] [phone] Sindy Hatch MD A-fib (CMS/HCC) (HCC) (Primary Dx) 04/06/2024 Orders Only [facility] [address] [place] [phone] ProviderSarina MD 04/05/2024 Orders Only [facility] Health Information Management [address] [place] [phone] Scanning, Provider 04/05/2024 Orders Only [facility] [address] [place] [phone] Sarina Miller MD 04/02/2024 1:30 PM SPORTS TEAM MARKETING INTERN Office Visit [facility] [address] [facility] [address], [place] [address] Zeina Fitzgerald MD LUPE (obstructive sleep apnea) (Primary Dx); Hypersomnia with sleep apnea; Psychophysiological insomnia; Morbid obesity with BMI of 45.0-49.9, adult (HCC) from Last 3 Months Immunizations Name Administration Dates Next Due Influenza, Trivalent, Preser vative Free, Intramuscular 06/05/2013 Influenza, Unspecified 02/14/2024(Deferr ed: Patient Refused),07/18/2023(Deferred: Patient Refused),07/15/2022(Deferred: Patient Refused),05/04/2021(Deferred: Patient Refused),05/04/2020(Deferred: Patient Refused),02/27/2018(Deferred: Allergy) Pfizer SARS-CoV-2 Monovalent Vaccination (12+ Yrs) PURPLE 09/15/2020,08/18/2020 Pneumococcal Conjugate PCV 13 07/06/2019 Pneumococcal Polysaccharide PPV23 05/04/2021, Surgical History Surgery Date Site/Laterality Comments CATARACT EXTRACTION 09/13/2018 Left COLON SURGERY Cancer, colon: surgical resection TUBAL LIGATION contraception: Bilateral tubal ligation DILATION AND CURETTAGE, DIAGNOSTIC / THERAPEUTIC d and c x3 KNEE SURGERY left acl tear: surgery KNEE ARTHROPLASTY oa right knee: arthroscopy FASCIOTOMY FOOT / TOE plantar fasciitis: left plantar fasciotomy CARDIAC CATHETERIZATION 05/16/2009 - 05/15/2010 abnormal stress test: cardiac cath ANTERIOR CRUCIATE LIGAMENT REPAIR 05/16/1998 - 05/15/1999 Left knee ACL reconstruction VENTRAL HERNIA REPAIR repair incisional ventral hernia HERNIA REPAIR 05/16/2011 - 05/15/2012 repair recurrent incisional Vent hernia with mess COLON SURGERY Left hemicolectomy INSERT / REPLACE / REMOVE PACEMAKER 09/13/2020 - 10/13/2020 Left POLYPECTOMY UPPER GASTROINTESTINAL ENDOSCOPY COLONOSCOPY 03/16/2017 - 04/14/2017 Medical History Medical History Date Comments Malignant neoplasm of colon (HCC) Cancer, colon Vertigo vertigo Hyperlipidemia Hyperlipidemia Irritable bowel syndrome Irritab le bowel disease Asthma Asthma Anxiety disorder anxiety Depression Depression Atrial fibrillation (CMS/HCC) (HCC) Essential hypertension 04/11/2019 SBO (small bowel obstruction) (CMS/HCC) (HCC) Small bowel obstruction Osteoarthritis of right knee oa right knee Left ACL tear left acl tear Colon cancer (CMS/HCC) (HCC) 2001 GERD (gastroesophageal reflux disease) Colon polyp Obstructive lung disease (generalized) ([facility]) 07/2023 Family History Medical History Relation Name Comments Coronary artery disease Brother 3 Sole nary artery disease, premature; Hypertension Brother 4 Hypertension; Diabetes Brother 5 Diabetes mellit us; Coronary artery disease Brother 6 Sole nary artery disease; Other Daughter 3 Cancer - rhabdo myosarcoma; Cancer Daughter 4 cancer; Cause o f : cancer Coronary artery disease Father Sole nary artery disease, premature; /Coronary artery disease; Hypertension Father Hypertension; / Hypertension; Lymphoma Father Cancer -lymphom a; /Lymphoma; Other Father anxiety, depres wilson; Breast cancer Maternal cousin Thyroid cancer Maternal cousin Anxiety disorder Mother Anxiety; Coronary artery disease Mother Sole nary artery disease; Depression Mother Depression; Diabetes Mother Diabetes mellit us; Diabetes type II Mother Diabetes -T ype II; Hypertension Mother Hypertension; Other Mother Cancer - aplast ic anemia; Stroke Mother Stroke; Breast cancer Mother's Sister 1 Diabetes Mother's Sister 1 Diabetes m ellitus; Breast cancer Mother's Sister 2 Cancer, b reast; Cancer Other Family history of cancer; Other Paternal Grandfather Cancer - larynx; Breast cancer Paternal cousin Ovarian cancer Neg Hx Relation Name Status Comments Brother 1 Alive Brother 2 Alive Brother 3 Brother 4 Brother 5 Brother 6 Daughter 1 Alive Daughter 2 (Age 17) Daughter 3 Daughter 4 Father Maternal cousin Mother Mother's Sister 1 Mother's Sister 2 Other Paternal Grandfather Paternal cousin Social History Tobacco Use Types Packs/Day Years Used Date Smoking Tobacco: Never Smokeless Tobacco: Never Tobacco Cessation:Counseling Given: Not Answered Alcohol Use Standard Drinks/Week Comments No 0 (1 standard drink = 0.6 oz pur e alcohol) Social Connection and Isolat ion Panel [NHANES] Answer Date Recorded In a typical week, how many times do you talk on the phone with family, friends, or neighbors? More than three times a week 07/13/2022 How often do you get togethe r with friends or relatives? More than three times a week 07/13/2022 Attends Alevism Services Not on file 07/13 Do you belong to any clubs o r organizations such as advent groups, unions, fraternal or athletic groups, or school groups? No 07/13/2022 How often do you attend meet ings of the clubs or organizations you belong to? Never 07/13/2022 Are you , , di vorced, , never , or living with a partner? 07/13/2022 AUDIT-C Answer Date Recorded Q1: How often do you have a drink containing alcohol? Never 06/01/2024 Q2: How many drinks containi ng alcohol do you have on a typical day when you are drinking? Patient does not drink Q3: How often do you have si x or more drinks on one occasion? Never 06/01/2024 Overall Financial Resource Strain (CARDIA) Answe r Date Recorded How hard is it for you to pa y for the very basics like food, housing, medical care, and heating? Not hard at all 07/13/2022 PHQ-2 Answer Date Recorded PHQ-2 Total Score (If total score is 3 or more points, staff should administer the PHQ-9) 4 05/03/2024 PRAPARE - Transportation Answer Date Re corded In the past 12 months, has l ack of transportation kept you from medical appointments or from getting medications? No 06/17 In the past 12 months, has l ack of transportation kept you from meetings, work, or from getting things needed for daily living? No 07/13/2022 Housing Stability Vital Sign Answer Balbir e Recorded In the last 12 months, was t here a time when you were not able to pay the mortgage or rent on time? No 07/13/2022 In the last 12 months, how many places have you lived? 1 07/13/2022 In the last 12 months, was t here a time when you did not have a steady place to sleep or slept in a prison (including now)? No 07/13/2022 Personal Safety Answer Date Recorded Getting School Help Needed Denies 04/28 Comments No Sex and Gender Information Value Date Recorded Sex Assigned at Not on file Legal Sex Female 12:26 AM SPORTS TEAM MARKETING INTERN Gender Identity Not on file Sexual Orientation Not on file Obstetrics History Para Term AB IAB SAB Ectopic Multiple Livin g Live Births 4 3 3 Date Outcome GA Total Labor Labor/2nd/3rd Weight Sex Type Anes PTL Dori A1 A5 Name Clin Term Term Term Last Filed Vital Signs Vital Sign Reading Time Taken Comments Blood Pressure 133/76 06/01/2024 2:14 PM SPORTS TEAM MARKETING INTERN Pulse 86 06/01/2024 2:14 PM SPORTS TEAM MARKETING INTERN Temperature 36.6 ??C (97.9 ??F) 10/17/2023 1:05 PM CD T Respiratory Rate 18 05/03/2024 10:4 8 AM SPORTS TEAM MARKETING INTERN Oxygen Saturation 93% 06/01/2024 2:14 PM SPORTS TEAM MARKETING INTERN Inhaled Oxygen Concentration - - Weight 129.4 kg (285 lb 4.8 oz) 06/01/2024 2:14 PM SPORTS TEAM MARKETING INTERN Height 170.2 cm (5' 7 ) 06/01/2024 2:14 PM SPORTS TEAM MARKETING INTERN Body Mass Index 44.68 06/01/2024 2:14 PM SPORTS TEAM MARKETING INTERN Plan of Treatment Upcoming Encounters Date Type Department Care Team (Late st Contact Info) Description 08/03/2024 8:55 AM CDT Hospital Encounter [facility] [address] [place] [address] Felicity Galarza MD [address] [place] [address] 08/03/2024 8:55 AM CDT - 08/03/2024 9:25 AM CDT Surgery [facility] [address] [place] [address] Felicity Galarza MD [address] [place] [address] COLONOSCOPY Scheduled Procedures Name Priority Associated Diagnoses Date/Ti me COLONOSCOPY Personal history of colon cancer Encounter for screening colonoscopy 08/03/2024 8:55 AM CDT Health Maintenance Due Date Last Done Comments DTaP/Tdap/Td Vaccine (1 - Tdap) 1966 Hepatitis B Screening 01/08/1972 Zoster Vaccine (1 of 2) 01/08/2004 Breast Cancer Screening-Mammogram 06/29/2022 022 Osteoporosis Screening-Bone Density Scan 06/29/2023 06/29/2021 Covid-19 Vaccine (3 - 2023-2 5 season) 2024 09/15/2020, 08/18/2020 Influenza Vaccine (#1) 2024 06/05/2013 Well Visit 65+ 07/17/2024 07/18/2023, 03/0 06/2022, 05/04/2021 Colon Cancer Screening-Colonoscopy 07/30/2024 07/30/2021, 03/17/2017, 10/17/2012, Additional history exists Fall Risk Assessment 02/13/2025 02/14/2024, 07/18/2023, 02/14/2023, Additional history exists Depression Screening 05/03/2025 05/03/2024, 05/03/2024, 02/14/2024, Additional history exists Hepatitis C Screening Completed 04/27/2021 Pneumococcal vaccine 65+ Completed 021, 07/06/2019, 04/06/2010 Colon Cancer Screening-CT Colonography Discontinued 07/30/2021, 03/17/2017, 10/17/2012, Additional history exists Colon Cancer Screening-DNA Stool Discontinued 07/30/2021, 03/17/2017, 10/17/2012, Additional history exists Colon Cancer Screening-FIT Discontinued 07/30, 03/17/2017, 10/17/2012, Additional history exists Colon Cancer Screening-Sigmoidoscopy Discontinued 07/30/2021, 03/17/2017, 10/17/2012, Additional history exists Goals Goal Patient Goal Type Associated Problems Recent Progress Patient-Stated? Author [facility] On track( 020 8:37 AM CDT) Peri Suarez, RN Note: Patient will establish a comfort-function goal and identify the pain level that will allow the patient to perform desired activities and achieve an acceptable quality of life. Medical Devices Implanted Type Area Broadloom Weaver Device Identifier Shelf Expiration Date Model / Serial / Lot Pacemaker Left: Chest Procedures Procedure Name Priority Date/Time Associated Diagnosis Comments [place] ARTHROCENTESIS ASPIR&/INJ MAJOR JT/BURSA W/O US Routine 05/17/2024 1:15 PM SPORTS TEAM MARKETING INTERN Primary osteoarthritis of right knee EXTERNAL REFERENCE LAB RESULTS Routine 04/05/2024 12:19 PM SPORTS TEAM MARKETING INTERN SCAN - LABS 04/05/2024 TRANSTHORACIC ECHO (TTE) COMPLETE W DOPPLER/CF Routine 04/04/2024 9:16 AM SPORTS TEAM MARKETING INTERN COLONOSCOPY 07/30/2021 7:29 AM CDT SCREENING MAMMOGRAM BILATERAL W JOEL Schedule Routine, Read Routine (OP Routine) 06/29/2021 2:49 PM SPORTS TEAM MARKETING INTERN Encounter for screening mammogram for breast cancer DEXA AXIAL SKELETON BONE DENSITY 1 OR MORE SITES Schedule Routine, Read Routine (OP Routine) 06/29/2021 2:32 PM SPORTS TEAM MARKETING INTERN Osteoporosis screening Unspecified menopausal and perimenopausal disorder HEPATITIS C ANTIBODY Routine 04/27/2021 3:14 PM SPORTS TEAM MARKETING INTERN Encounter for hepatitis C screening test for low risk patient from Last 3 Months or Most Recently Relevant to Health Maintenance Results * [place] ARTHROCENTESIS ASPIR&/INJ MAJOR JT/BURSA W/O US (05/17/2024 1:15 PM SPORTS TEAM MARKETING INTERN) Narrative Mary Baez NP - 05/17/2024 1:15 PM SPORTS TEAM MARKETING INTERN Mary Baez NP ? 05/17/2024 ??1:39 PM Large Joint (Hip, Knee, Shoulder) Injection: R knee Performed by: Mary Baez NP Authorized by: Mary Baez NP ?? Large Joint Injection/Aspiration: ??Consent Given by: ??Patient ??Site marked: the procedure site was marked ?Timeout: prior to procedure the correct patient, procedure, and site was verified ?Verbal consent obtained: Yes ?? Supporting Documentation: ??Indications: ??Pain Procedure Details: ??Location: ??Knee ??Site: ??R knee ??Needle Size: ??22 G ??Approach: ??Anterolateral ??Ultrasound guided: No ?Fluroscopic guidance: No ?Medications: ??2 mL lidocaine 20 mg/mL (2 %); 32 mg triamcinolone acetonide extended release 32 mg ??Patient tolerance: ??Patient tolerated the procedure well with no immediate complications us Mary Baez MATLAB DEVELOPER IN CLINIC/BEDSIDE ORDER MARK Final Result * External Reference Lab Results (04/05/2024 12:19 PM SPORTS TEAM MARKETING INTERN) Historical Provider LAB BLOOD ORDERABLES Evie l Result * SCAN - LABS (04/05/2024) Provider Scanning Final Result * Transthoracic Echo (TTE) Complete W Doppler/CF (04/04/2024 9:16 AM SPORTS TEAM MARKETING INTERN) Anatomical Region Laterality Modality Ultrasound Historical Provider CV ECHO PROCEDURES Final Result * COLONOSCOPY (07/30/2021 7:29 AM CDT) Anatomical Region Laterality Modality Other Narrative Procedure Note Raf Ovalles MD - 07/30/2021 7:29 AM CDT [facility] Patient Name: Celeste Tom Procedure Date: 07/30/2021 7:29 AM Date of : 1955 Admit Type: Outpatient Age: 66 Gender: Female Attending MD: Raf Ovalles M.D. Room: [facility] ENDOSCOPY ROOM 2 Note Status: Finalized Patient Profile: Refer to note in patient chart for documentation of history and physical. Procedure: Colonoscopy Indications: High risk colon cancer surveillance: Personalhistory of colonic polyps, High risk colon cancer surveillance: Personal history of colon cancer,Last colonoscopy: March 2017 Referring MD: Zainab Anna D.O. Providers: Raf Ovalles M.D. Impression: - Hemorrhoids found on perianal exam. - One 8 mm polyp in the cecum, removed with a hot biopsy forceps. Resected and retrieved. - Four 3 to 5 mm polyps in the ascending colon, removed with a jumbo cold forceps. Resected and retrieved. - Six 4 to 6 mm polyps in the descending colon, inthe transverse colon and in the ascending colon,removed with a cold snare. Resected and retrieved. - Patent end-to-end colo-colonic anastomosis, characterized by healthy appearing mucosa. - The examination was otherwise normal. Recommendation: - Discharge patient to home. - Resume previous diet. - Continue present medications. - Resume Eliquis (apixaban) at prior dose in 5days. - Await pathology results. - Repeat colonoscopy in 3 years for surveillance. - Return to primary care physician as previously scheduled. Medicines: Propofol per Anesthesia Complications: No immediate complications. Estimated Blood Loss: Estimated blood loss: none. Procedure: Pre-Anesthesia Assessment: - This assessment was completed [Time ofAssessment] prior to the administration of sedation. The benefits, risks and alternatives of theprocedure and sedation were discussed and informed consentwas obtained. All questions were answered. Please referto the signed informed consent document in the medical record. The bowel preparation used was Miralax and bisacodyl tablets via single dose instruction. The scope was passed under direct vision. TheColonoscope [id number] was introduced through the anus and advanced to the the cecum, identified by appendiceal orifice and ileocecal valve. The colonoscopy was performed without difficulty. The patient tolerated the procedure well. The qualityof the bowel preparation was adequate to identifypolyps. The ileocecal valve, appendiceal orifice, andrectum were photographed. Findings: Hemorrhoids were found on perianal exam. An 8 mm polyp was found in the cecum. The polyp was sessile. Thepolyp was removed with a hot biopsy forceps. Resection and retrieval were complete. Verification of patient identification for the specimen was done by the physician and nurse using the patient's name and birthdate. Estimated blood loss was minimal. Four sessile polyps were found in the ascending colon. The polypswere 3 to 5 mm in size. These polyps were removed with a jumbo cold forceps. Resection and retrieval were complete. Verification of patient identification for the specimen was done by the physician and nurse using the patient's name and date. Estimated blood loss was minimal. Six sessile polyps were found in the descending colon, transversecolon and ascending colon. The polyps were 4 to 6 mm in size. These polyps were removed with a cold snare. Resection and retrieval werecomplete. Verification of patient identification for the specimen was done bythe physician and nurse using the patient's name and date. There was evidence of a prior end-to-end colo-colonic anastomosis inthe sigmoid colon. This was patent and was characterized by healthy appearing mucosa. Estimated blood loss was minimal. The exam was otherwise without abnormality. Electronically signed by Raf Ovalles M.D. Raf Ovalles M.D. 07/30/2021 9:23:12 AM Number of Addenda: 0 Note Initiated On: 07/30/2021 7:29 AM Procedure Code(s): --- Professional --- 14174, Colonoscopy, flexible; with removal of tumor(s), polyp(s), or other lesion(s) by snare technique 85970, 59, Colonoscopy, flexible; with removal of tumor(s), polyp(s),or other lesion(s) by hot biopsy forceps 73846, 59, Colonoscopy, flexible; with biopsy, single or multiple Diagnosis Code(s): --- Professional --- Z98.0, Intestinal bypass and anastomosis status D12.2, Benign neoplasm of ascending colon D12.3, Benign neoplasm of transverse colon (hepatic flexure orsplenic flexure) D12.4, Benign neoplasm of descending colon D12.0, Benign neoplasm of cecum K64.9, Unspecified hemorrhoids Z85.038, Personal history of other malignant neoplasm of largeintestine Z86.010, Personal history of colonic polyps CPT copyright 2020 [employer]. All rights reserved. The codes documented in this report are preliminary and upon music historian reviewmay be revised to meet current compliance requirements. Recognized by the [employer] for promoting quality in endoscopy us Raf Ovalles MD ENDOSCOPY PROCEDURES Final Re sult * (ABNORMAL) Screening Mammogram Bilateral W Joel (06/29/2021 2:49 PM SPORTS TEAM MARKETING INTERN) Anatomical Region Laterality Modality Breast Bilateral Mammography 07/07/2021 3:04 PM SPORTS TEAM MARKETING INTERN Impressions 07/07/2021 3:04 PM SPORTS TEAM MARKETING INTERN 1. ??Indeterminate right breast asymmetries. ??Further evaluation is recommended with diagnostic right mammography and possible diagnostic right breast ultrasound. 2. ??No mammographic evidence of malignancy in the left breast. Routine screening mammography of the left breast is recommended in 1 year. BI-RADS: 0 - Additional imaging evaluation is necessary. Electronically signed by: Uriel Lerner M.D. Narrative 07/07/2021 3:04 PM SPORTS TEAM MARKETING INTERN EXAMINATION: SCREENING MAMMOGRAM BILATERAL W JOEL ORDERING HEALTHCARE PROVIDER: SYBIL GILMORE HISTORY: Routine screening mammography. COMPARISON: ??09/23/2014. TECHNIQUE: CC and MLO views of the bilateral breasts were obtained with digital technique using breast tomosynthesis with C view. Computer aided detection was utilized. FINDINGS: DENSITY: The tissue of the bilateral breasts is almost entirely fatty. BREASTS: There is a focal asymmetry in the lateral right breast, middle depth. ??There is an asymmetry in the superior right breast, posterior depth on the MLO view. ??There are no other suspicious findings in either breast. us Sybil Gilmore MATLAB DEVELOPER IMG MAMMO PROCEDURES Final Resul t * Dexa Axial Skeleton Bone Density 1 or 2 Site (06/29/2021 2:32 PM SPORTS TEAM MARKETING INTERN) Anatomical Region Laterality Modality Body N/A Other 06/29/2021 3:12 PM SPORTS TEAM MARKETING INTERN Narrative 06/29/2021 3:13 PM SPORTS TEAM MARKETING INTERN EXAM DESCRIPTION: ?? DEXA AXIAL SKELETON BONE DENSITY 1 OR MORE SITES REASON FOR STUDY: ?66 ??year old postmenopausal ??female ??with given history of osteoporosis screening. Broadloom Weaver/Model: ?? Death by Party SL (S/N [id number]) CLINICAL INFORMATION: Current height: ?? 67 ??inches ? Maximum height: 67 inches ? Weight: 306 pounds Risk factors: None reported COMPARISON: None available. FINDINGS: AP LUMBAR SPINE L1-L4: Total BMD is ?? 1.297 ??g/cm2 T-score is 2.3 LEFT HIP: Total BMD is 1.166 g/cm2 T-score is 1.8 Femoral neck BMD is 0.849 g/cm2 T-score is 0.0 FRAX is not reported because all T-scores are at or above -1.0. IMPRESSION: ??Normal bone mineral density by WHO criteria. REFERENCE: Bone mineral density: ? Normal (T-score above or = -1.0) ? Low bone mass ??(T-score between -1.0 and -2.5) replaces the previously used term osteopenia ? Osteoporosis (T-score = or below -2.5) Medical evaluation for secondary causes of low bone mineral density may be appropriate. FRAX is a World Health Organization validated fracture risk assessment tool that calculates a person's 10 year probability of a major osteoporosis related fracture and hip fracture. ??According to the National Osteoporosis Foundation guidelines, postmenopausal women and men age 50 or older with low bone mass and a 10 year probability of a major osteoporosis related fracture = or greater than 20% or a 10 year probability of a hip fracture = or greater than 3% should be considered for treatment. For further information, including treatment recommendations, please refer to the 2013 ISCD Official Positions (http://www.iscd.org) and the NOF's Clinician's Guide to Prevention and Treatment of Osteoporosis (http://www.nof.org/professionals/clinical-guidelines) THIS IS AN ELECTRONICALLY VERIFIED FINAL REPORT 06/29/2021 3:13 PM - Electronically signed by ??Sergio Reid M.D., MD: D: ??06/29/2021 3:13 PM T: ??06/29/2021 3:13 PM Report ID: [id number] Reading Location: ??[id number] Procedure Note Sergio Reid MD - 06/29/2021 EXAM DESCRIPTION: DEXA AXIAL SKELETON BONE DENSITY 1 OR MORE SITES REASON FOR STUDY: 66 year old postmenopausal female with givenhistory of osteoporosis screening. Broadloom Weaver/Model: Death by Party SL (S/N [id number]) CLINICAL INFORMATION: Current height: 67 inches Maximum height: 67 inches Weight: 306 pounds Risk factors: None reported COMPARISON: None available. FINDINGS: AP LUMBAR SPINE L1-L4: Total BMD is 1.297 g/cm2 T-score is 2.3 LEFT HIP: Total BMD is 1.166 g/cm2 T-score is 1.8 Femoral neck BMD is 0.849 g/cm2 T-score is 0.0 FRAX is not reported because all T-scores are at or above -1.0. IMPRESSION: Normal bone mineral density by WHO criteria. REFERENCE: Bone mineral density: Normal (T-score above or = -1.0) Low bone mass (T-score between -1.0 and -2.5) replaces thepreviously used term osteopenia Osteoporosis (T-score = or below -2.5) Medical evaluation for secondary causes of low bone mineral density may be appropriate. FRAX is a World Health Organization validated fracture risk assessmenttool that calculates a person's 10 year probability of a major osteoporosisrelated fracture and hip fracture. According to the National OsteoporosisFoundation guidelines, postmenopausal women and men age 50 or older with low bonemass and a 10 year probability of a major osteoporosis related fracture = or greater than 20% or a 10 year probability of a hip fracture = or greaterthan 3% should be considered for treatment. For further information, including treatment recommendations, please referto the 2013 ISCD Official Positions (http://www.iscd.org) and the NOF's Clinician's Guide to Prevention and Treatment of Osteoporosis (http://www.nof.org/professionals/clinical-guidelines) THIS IS AN ELECTRONICALLY VERIFIED FINAL REPORT 06/29/2021 3:13 PM - Electronically signed by Sergio Reid M.D. MD: Report ID: [id number] Reading Location: [place] [address] Sybil Gilmore NP IMG DXA PROCEDURES Final Result * Hepatitis C antibody (04/27/2021 3:14 PM SPORTS TEAM MARKETING INTERN) Pathologist [facility] Hep C Ab Nonreactive Nonreactive JOVANNY PALUMBO (MATTHEW) Comment: Interpretive Data Nonreactive: Antibodies to HCV not detected. Does NOT exclude the possibility of recent exposure to HCV. Equivocal: Equivocal for HCV antibodies. Supplemental molecular testing will be automatically performed to determine infection status in accordance with current CDC screening recommendations. ?? Reactive: Positive for HCV antibodies. ??This may represent current or past HCV infection. Supplemental molecular testing will be automatically performed to determine ??current infection status in accordance with current CDC screening recommendations. Interpretive data was last revised on 2019. Testing performed by: [facility], [address] [place] [address], [place]., [address] Blood 04/27/2021 3:14 PM SPORTS TEAM MARKETING INTERN 04/28/2021 9:12 AM SPORTS TEAM MARKETING INTERN us Sybil Gilmore NP LAB MICROBIOLOGY - GENERAL ORDER MARK Final Result [facility] ([facility]) [facility] [place] [address] from Last 3 Months or Most Recently Relevant to Health Maintenance Insurance [employer] MEDICARE PPO [employer] MEDICARE PPO [employer] MEDICARE PPO Advance Directives For more information, please contact: [phone] * Full Code (Latest Code Status on File) Date Activated Date Inactivated Comments 07/09/2022 9:06 AM 07/12/2022 7:08 PM * Full Code Date Activated Date Inactivated Comments 07/30/2021 7:48 AM 07/30/2021 2:27 PM * Full Code Date Activated Date Inactivated Comments 07/30/2021 7:48 AM 07/30/2021 7:48 AM Care Teams Information Analyst Relationship Specialty Start Date End Date Saleem Rod MD [address] [place] [address] [place] [address] PCP - General Family Medicine 11/18/22 Souleymane Jackson MD Consulting Physician Pulmonary Disease 11/13/18 Lupillo Brownlee MD Referring Physician Orthopedic Surgery 11/13/18 Yossi Caro MD Consulting Physician Cardiology 02/14/20 Avery Lux MD Anesthesiologist Anesthesiology 02/14/20 Raf Ovalles MD [address] [address] Consulting Physician Gastroenterology 02/14/20 [place] [id number] [address] Consulting Physician Cardiology 12/29/20
--- OUTSIDE RECORDS SUMMARY | 2024-06-19 17:31 | XMS_ITS | Encounter Summary ---
Author Organization [facility] Address [address] [place] [address] Care Team Providers Care Network Project Manager Name Role Phone Zainab Anna Primary Care Provider [phone] Souleymane Jackson MD Unavailable [phone] Lupillo Brownlee MD Unavailable [phone] Yossi Caro MD Unavailable [phone] Avery Lux MD Unavailable [phone] Raf Ovalles MD Unavailable [phone] Sindy Hatch MD Unavailable [phone] Eli Sparrow RN Unavailable [phone] Saleem Rod MD Primary Care Provider [phone] Encounter Details Date Type Department Care Team (Late st Contact Info) Description 03/10/[address] [address] Andreina Salazar RN Social History Tobacco Use Types Packs/Day Years Used Date Smoking Tobacco: Never Smokeless Tobacco: Never Alcohol Use Standard Drinks/Week Comments No 0 (1 standard drink = 0.6 oz pur e alcohol) PHQ-2 Answer Date Recorded PHQ-2 Total Score (If total score is 3 or more points, staff should administer the PHQ-9) 1 12/29/2020 Comments No Sex and Gender Information Value Date Recorded Sex Assigned at Not on file 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 RN explained infusion to patient, pt refused and states I cant come to [place] . Pt instructed to call MD office and notify MD she is unable to have[facility]usion at [facility]. documented in this encounter Plan of Treatment Upcoming Encounters Date Type Department Care Team (Late st Contact Info) Description 08/03/2024 8:55 AM CDT Hospital Encounter [address] [address] Felicity Galarza MD [address] [place] [address] DR [address] [place] [phone] 08/03/2024 8:55 AM CDT - 08/03/2024 9:25 AM CDT Surgery [address] [address] Felicity Galarza MD [address] [place] [address] DR [address] [place] [id number] COLONOSCOPY Scheduled Procedures Name Priority Associated Diagnoses Date/Ti me COLONOSCOPY Personal history of colon cancer Encounter for screening colonoscopy 08/03/2024 8:55 AM CDT documented as of this encounter Goals Goal Patient Goal Type Associated Problems Recent Progress Patient-Stated? Author [facility] On track( 020 8:37 AM CDT) No Peri [place], JCARLOS Note: Patient will establish a comfort-function goal and identify the pain level that will allow the patient to perform desired activities and achieve an acceptable quality of life. 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 documented as of this encounter Care Teams Network Project Manager Relationship Specialty Start Date End Date Zainab Anna DO PCP - General Family Medicine 11/13/18 11/17/22 Saleem Rod MD 2 [facility] [address] [place] [address] PCP - General Family Medicine 11/18/22 Souleymane Jackson MD Consulting Physician Pulmonary Disease 11/13/18 Lupillo Brownlee MD Referring Physician Orthopedic Surgery 11/13/18 Yossi Caro MD Consulting Physician Cardiology 02/14/20 Avery Lux MD Anesthesiologist Anesthesiology 02/14/20 Raf Ovalles MD 4 [facility] [address] [place] [address] Consulting Physician Gastroenterology 02/14/20 [place] [address] [address] [place] [address] Consulting Physician Cardiology 12/29/20 Eli Sparrow RN [address] [place] [address] [address] [place] [address] Property Assistant 07/13/22 08/19/22 documented as of this encounter
--- OUTSIDE RECORDS SUMMARY | 2024-06-19 17:31 | XMS_ITS ---
Care Plan - [facility] Created on: June 19, 2024 LEAH LAZO : 1955 Sex: Female Author Organization [facility] Address [address] [place] [address] Phone Care Team Providers Care Chocolate Maker Name Role Phone LAVON OTERO, JOEL Sims Unavailable [phone]
--- OUTSIDE RECORDS SUMMARY | 2024-06-19 17:31 | XMS_ITS | Referral Summary ---
Author Organization [facility] Address [address] [place] [address] Care Team Providers Care Ward Secretary Name Role Phone Souleymane Jackson MD Unavailable Lupillo Brownlee MD Unavailable [phone] Yossi Caro MD Unavailable [phone] Avery Lux MD Unavailable Raf Ovalles MD Unavailable [phone] Sindy Hatch MD Unavailable Saleem Rod MD Primary Care Provider Encounters Date Type Department Care Team Description 06/19/2024 Orders Only [facility] Pulmonary at [address] [place] [phone] Kevin Blanton MD 06/19/2024 Telephone [facility] Pulmonary at [address] [place] [phone] Carrie Murillo LPN sick call 06/01/2024 2:30 PM PARTS CONSULTANT Office Visit [facility] Gastroenterology at [address] [place] [phone] Soha Mohan PA History of colon cancer (Primary Dx); Hemorrhoids, unspecified hemorrhoid type; S/P partial resection of colon; BRBPR (bright red blood per rectum); Epigastric pain; Gastric polyps 05/18/2024 Telephone [facility] Orthopedics and Sports Medicine [address] [facility] [address] [place] [address] Mary Baez NP 05/17/2024 1:15 PM PARTS CONSULTANT Office Visit [facility] Orthopedics and Sports Medicine [address] [facility] [address] [place] [address] Mary Baez NP Primary osteoarthritis of right knee (Primary Dx); BMI 40.0-44.9, adult ([facility]) 05/14/2024 Telephone [facility] Orthopedics and Sports Medicine [address] [place] [address] [address] [place] [address] Jeanette Samuel PA 05/03/2024 10:23 AM PARTS CONSULTANT - 05/03/2024 11:59 PM PARTS CONSULTANT Hospital Encounter [facility] [address] [facility] [address] [place] [address] Uriel Vilchis MD Spondylosis of lumbar region without myelopathy or radiculopathy; Bilateral chronic knee pain Discharge Disposition: Discharge to home or self care 04/10/2024 2:30 PM PARTS CONSULTANT Anesthesia Event [facility] GI Lab [address] [place] [address] Felicity Arias MD 04/10/2024 2:30 PM PARTS CONSULTANT - 04/10/2024 3:00 PM PARTS CONSULTANT Surgery [facility] GI Lab [id number] [place] [address] Sindy Hatch MD Not Performed CARDIOVERSION 04/10/2024 1:09 PM PARTS CONSULTANT - 04/10/2024 2:07 PM PARTS CONSULTANT Hospital Encounter [facility] GI Lab [address] [place] [address] Sindy Hatch MD Discharge Disposition: Discharge to home or self care 04/06/2024 Orders Only [facility] Cardiac Catheterization Lab [address] [place] [address] Sindy Hatch MD A-fib ([facility]) ([facility]) (Primary Dx) 04/06/2024 Orders Only [place] Traffic Analysis Technician [address] [place] [address] [address] [place] [address] Sarina Miller MD 04/05/2024 Orders Only [facility] Health Information Management [address] [place] [address] Paul Newell 04/05/2024 Orders Only [place] Traffic Analysis Technician [address] [place] [phone] Sarina Miller MD 04/02/2024 1:30 PM PARTS CONSULTANT Office Visit [facility] [address] [facility] [address] [place] [address] Zeina Fitzgerald MD LUPE (obstructive sleep apnea) (Primary Dx); Hypersomnia with sleep apnea; Psychophysiological insomnia; Morbid obesity with BMI of 45.0-49.9, adult ([facility]) from Last 3 Months Allergies Active Allergy Reactions Criticality Noted Date [...] by mouth 2 (two) times a day 2020 Active Eliquis 5 mg tablet Take 1 tablet by mouth twice daily 180 tablet 2020 Active ipratropium-albuteroL (DUO-NEB) 0.5-2.5 mg/3 mL nebulizer solutionIndications:Ch ronic Obstructive Pulmonary Disease with Bronchospasms Take 3 mL by nebulization every 6 (six) hours 360 mL 6 04/07/ 2022 Active lidocaine HCL 4 % cream Apply topically Active menthol (COUGH DROPS MM) Apply to mouth Activ e dofetilide (TIKOSYN) 500 mcg capsuleIndications:car diac arrhythmia Take 1 capsule (500 mcg total) by mouth 2 (two) times a day 90 capsule 3 2022 Active ezetimibe (ZETIA) 10 mg tablet Take 1 tablet (10 mg total) by mouth daily Active naloxone (NARCAN) 4 mg/actuation spray,non-aerosolIndic ations:roasterman (current) use of opiate analgesic Administer 1 [...] Problems Problem Noted Date Diagnosed Date A-fib ([facility]) 04/06/2024 Obstructive lung disease (generalized) Assessment & Plan (02/28/2024 7:24 AM CDT): [...] 07/18/2023 Assessment & Plan (07/18/2023 3:23 PM PARTS CONSULTANT): Discussed lifestyle modifications, diet and exercise. Routine [...] time Assessment & Plan (07/18/2023 3:17 PM PARTS CONSULTANT): Wt Readings from Last 3 Encounters: 07/18/23 [...] (07/11/2022): Added automatically from request for surgery [id number] Assessment & Plan (07/18/2023 3:16 PM PARTS CONSULTANT): S/p pacemaker Fopllowing with cardio Continue eliquis 5 mg bid Continue rate control medications C/w cardizem 120 mg tid Assessment & Plan (11/18/2022 2:08 PM CDT): S/p pacemaker Fopllowing with cardio Continue eliquis 5 mg bid Continue rate control medications C/w cardizem 300 mg 24 hr every day, tikosin 500 mg bid Thrush, oral 05/06/2021 Assessment & Plan (05/06/2021 7:39 AM PARTS CONSULTANT): Treat with diflucan weekly x 4. Clotrimazole trochs qid prn. Her inhaler has been changed due to thrush by pulmonology Medicare annual wellness visit, subsequent 05/03 Assessment & Plan (05/06/2021 7:38 AM PARTS CONSULTANT): Patient Counseling: --Nutrition: Stressed importance of moderation [...] (02/09/2021): Added automatically from request for surgery [id number] Intestinal bypass and anastomosis status 021 Overview (02/09/2021): Added automatically from request for surgery [id number] Gastroesophageal reflux disease 02/09/2021 Overview (02/09/2021): Added automatically from request for surgery [id number] Cardiac pacemaker 12/29/2020 Overview (12/29/2020): Wendy Jordan Shortness of breath 11/03/2020 Sick sinus syndrome (CMS/HCC) 09/10/2020 Anemia 01/31/2020 Overview (04/27/2021): (History of) Anxiety 01/31/2020 Overview (04/27/2021): (History of) Encounter for screening for cardiovascular disor ders 01/31/2020 Hyperlipidemia 01/31/2020 Assessment & Plan (07/15/2022 1:45 PM PARTS CONSULTANT): Lab Results Component Value Date CHOL 206 [...] nodule 12/14/2019 Overview (12/14/2019): Managed by pulmonology roasterman current use of anticoagulant 9 Assessment & Plan (07/15/2022 1:43 PM PARTS CONSULTANT): Continue eliquis 5 mg bid for afib Essential hypertension 04/11/2019 Assessment & Plan (02/14/2024 1:38 PM CDT): BP Readings from Last 3 Encounters: 02/02/24 128/74 01/31/24 134/74 11/03/23 141/65 There were no vitals taken for this visit. Lab Results Component Value Date POTASSIUM 4.5 09/01/2023 at goal at this time C/w losartan 50 mg qd C/w mg tid every day Assessment & Plan (07/18/2023 3:41 PM PARTS CONSULTANT): BP Readings from Last 3 Encounters: 07/18/23 [...] recently Start losartan 50 mg qd C/w mg tid every day Assessment & Plan (11/18/2022 1:56 PM CDT): BP Readings from Last 3 Encounters: 10/12/22 130/89 09/13/22 148/85 07/15/22 140/80 There were no vitals taken for this visit. Lab Results Component Value Date POTASSIUM 4.7 08/11/2022 C/w cardizem 300 mg every day Assessment & Plan (07/15/2022 1:44 PM PARTS CONSULTANT): BP Readings from Last 3 Encounters: 07/15/22 [...] changes Assessment & Plan (04/27/2021 3:07 PM PARTS CONSULTANT): Pt needs f/u with PCP for [facility] Labs ordered to do prior to OV. Assessment & Plan (02/14/2020 10:31 PM CDT): Elevated, patient encouraged to notify distribution estimator. Cont current meds. Assessment & Plan (07/06/2019 2:46 PM PARTS CONSULTANT): Clinically improved, continue current meds. roasterman (current) use of opiate analgesic 03/16 Osteoarthritis of knee 02/19/2019 Influenza vaccine refused 02/19/2019 Assessment & Plan (02/19/2019 4:38 PM CDT): Patient has an egg sensitivity. Non-seasonal allergic rhinitis 11/16/2018 Assessment & Plan (02/19/2019 5:38 PM CDT): Stable, managed by pulmonology. Generalized anxiety disorder 11/13/2018 Assessment & Plan (02/14/2020 10:32 PM CDT): Stable. Cont. Current meds. Assessment & Plan (07/06/2019 2:47 PM PARTS CONSULTANT): D/C Xanax, switched to Clonazepam today. Assessment [...] O2 @ 4 L Paroxysmal atrial fibrillation ([facility]) 019 Assessment & Plan (02/14/2024 1:38 PM CDT): Continue cardizem, and eliquis Following with cardi Rate controlled today Assessment & Plan (07/15/2022 1:45 PM PARTS CONSULTANT): Continue cardizem, and eliquis Following with cardi Rate controlled today Assessment & Plan (02/14/2020 10:34 PM CDT): Managed by cardiology. Assessment & Plan (07/06/2019 2:47 PM PARTS CONSULTANT): NSR today. Asx. Managed by cardiology. Assessment & Plan (02/19/2019 5:37 PM CDT): Asx. Continue current therapy. Managed by cardiology. Fibromyalgia 02/22/2018 Chronic pain syndrome 02/13/2018 Assessment & Plan (07/18/2023 3:15 PM PARTS CONSULTANT): Follows with pain mgmt Assessment & Plan [...] Unchanged - with Dr Walton: in the s: colp/bx/cone bx/ then freezing: [...] therapy. Assessment & Plan (07/06/2019 2:46 PM PARTS CONSULTANT): Stable. Cont. Current meds. Assessment & Plan (02/19/2019 5:36 PM CDT): Stable. Continue current therapy. Assessment & Plan (11/16/2018 10:11 PM CDT): Stable. Cont. Current meds. Mild episode of recurrent major depressive disor domenico 09/29/2013 Assessment & Plan (07/18/2023 3:37 PM PARTS CONSULTANT): Not quite at goal at this time , worsening due to life stressors, weight gain, sthings at home with gradnddaugther she takes care of Continue paxil 40 mg every day Start wellbutrin 150 mg xl every day Assessment & Plan (02/14/2020 10:32 PM CDT): Clinically improved, continue current meds. Assessment & Plan (07/06/2019 2:46 PM PARTS CONSULTANT): Stable. Cont. Current meds. Assessment & Plan [...] counseling. Assessment & Plan (07/18/2023 3:37 PM PARTS CONSULTANT): Wt Readings from Last 3 Encounters: 07/18/23 [...] counseling. Assessment & Plan (07/15/2022 1:45 PM PARTS CONSULTANT): Wt Readings from Last 3 Encounters: 07/15/22 [...] counseling. Assessment & Plan (05/07/2021 7:43 PM PARTS CONSULTANT): BMI Follow-up includes: nutrition counseling and exercise counseling. Assessment & Plan (04/27/2021 3:07 PM PARTS CONSULTANT): Healthy, low carbohydrate lifestyle and exercise for 150min/week recommended Assessment & Plan (02/14/2020 10:35 PM CDT): Weight reduction, daily exercise and dietary modifications recommended. Assessment & Plan (07/06/2019 2:48 PM PARTS CONSULTANT): Unchanged. Encouraged patient to decrease weight, increase [...] labs Assessment & Plan (07/18/2023 3:18 PM PARTS CONSULTANT): Lab Results Component Value Date CHOL 206 [...] med. Assessment & Plan (07/06/2019 2:46 PM PARTS CONSULTANT): Stable. Cont. Current meds. Assessment & Plan (02/19/2019 5:35 PM CDT): Stable. Cont. Current meds. Assessment & Plan (11/16/2018 10:11 PM CDT): Stable. Cont. Current meds. Hernia of anterior abdominal wall 12/07/2011 Overview (08/20/2016): VENTRAL HERNIA NOS Psoriasis 10/14/2008 Overview (07/06/2019): Assessment & Plan (07/06/2019 2:47 PM PARTS CONSULTANT): Clinically improved, continue current meds. Resolved Problems Problem Noted Date Diagnosed Date Resolved Date Atrial fibrillation, chronic (CMS/HCC) 07/09/2022 07/15/2022 COVID 03/09/2021 11/18/2022 Acute cystitis without hematuria 12/29/2020 05/03/2021 Assessment & Plan (12/29/2020 5:07 PM CDT): Prescription given. Increase water intake. Urine culture sent. Asthma 01/31/2020 11/18/2022 Facet arthritis, degenerative, lumbar spine 12/12/2019 06/29/2023 Sacroiliitis 12/12/2019 06/29/2023 Insomnia secondary to chronic pain 12/12/2019 06/29/2023 Assessment & Plan (02/14/2020 10:35 PM CDT): Managed by furniture restorer. Lumbar radiculopathy 09/20/2019 024 DDD (degenerative disc [...] baseline, cont current meds. Managed by Pulmonology. Immunizations Name Administration Dates Next Due Influenza, Trivalent, Preser vative Free, Intramuscular 06/05/2013 Influenza, Unspecified 02/14/2024(Deferr ed: Patient Refused),07/18/2023(Deferred: Patient Refused),07/15/2022(Deferred: Patient Refused),05/04/2021(Deferred: Patient Refused),05/04/2020(Deferred: Patient Refused),02/27/2018(Deferred: Allergy) Pfizer SARS-CoV-2 Monovalent Vaccination (12+ Yrs) PURPLE 09/15/2020,08/18/2020 Pneumococcal Conjugate PCV 13 07/06/2019 Pneumococcal Polysaccharide PPV23 05/04/2021, Social History Tobacco Use Types Packs/Day Years [...] than three times a week 07/13/2022 Attends Yazidi Services Not on file 07/13 Do you belong to any clubs o r organizations such as alevism groups, unions, fraternal or athletic groups, or [...] place to sleep or slept in a intermediate (including now)? No 07/13/2022 Personal Safety Answer Date Recorded Getting School Help Needed Denies 04/28 Comments No Sex and Gender Information Value Date Recorded Sex Assigned at Not on file Legal Sex Female 12:26 AM PARTS CONSULTANT Gender Identity Not on file Sexual Orientation Not on file Last Filed Vital Signs Vital Sign Reading Time Taken Comments Blood Pressure 133/76 06/01/2024 2:14 PM PARTS CONSULTANT Pulse 86 06/01/2024 2:14 PM PARTS CONSULTANT Temperature 36.6 ??C (97.9 ??F) 10/17/2023 1:05 PM CD T Respiratory Rate 18 05/03/2024 10:4 8 AM PARTS CONSULTANT Oxygen Saturation 93% 06/01/2024 2:14 PM PARTS CONSULTANT Inhaled Oxygen Concentration - - Weight 129.4 kg (285 lb 4.8 oz) 06/01/2024 2:14 PM PARTS CONSULTANT Height 170.2 cm (5' 7 ) 06/01/2024 2:14 PM PARTS CONSULTANT Body Mass Index 44.68 06/01/2024 2:14 PM PARTS CONSULTANT Plan of Treatment Upcoming Encounters Date Type Department Care Team (Late st Contact Info) Description 08/03/2024 8:55 AM CDT Hospital Encounter [address] [address] Felicity Galarza MD [address] [place] [address] [place] [address] 08/03/2024 8:55 AM CDT - 08/03/2024 9:25 AM CDT Surgery [address] [address] Felicity Galarza MD [address] [place] [address] DR CAMARILLO [address] [place] [address] COLONOSCOPY Scheduled Procedures Name Priority Associated Diagnoses Date/Ti me COLONOSCOPY Personal history of colon cancer Encounter for screening colonoscopy 08/03/2024 8:55 AM CDT Goals Goal Patient Goal Type Associated Problems Recent Progress Patient-Stated? Author [facility] On track( 020 8:37 AM CDT) Peri Suarez, RN Note: Patient will establish a comfort-function goal and identify the pain level that will allow the patient to perform desired activities and achieve an acceptable quality of life. Medical Devices Implanted Type Area Washerette Machine Operator Device Identifier Shelf Expiration Date Model / Serial / Lot Pacemaker Left: Chest Procedures Procedure Name Priority Date/Time Associated Diagnosis Comments [place] ARTHROCENTESIS ASPIR&/INJ MAJOR JT/BURSA W/O US Routine 05/17/2024 1:15 PM PARTS CONSULTANT Primary osteoarthritis of right knee EXTERNAL REFERENCE LAB RESULTS Routine 04/05/2024 12:19 PM PARTS CONSULTANT SCAN - LABS 04/05/2024 TRANSTHORACIC ECHO (TTE) COMPLETE W DOPPLER/CF Routine 04/04/2024 9:16 AM PARTS CONSULTANT COLONOSCOPY 07/30/2021 7:29 AM CDT SCREENING MAMMOGRAM BILATERAL W JOEL Schedule Routine, Read Routine (OP Routine) 06/29/2021 2:49 PM PARTS CONSULTANT Encounter for screening mammogram for breast cancer DEXA AXIAL SKELETON BONE DENSITY 1 OR MORE SITES Schedule Routine, Read Routine (OP Routine) 06/29/2021 2:32 PM PARTS CONSULTANT Osteoporosis screening Unspecified menopausal and perimenopausal disorder HEPATITIS C ANTIBODY Routine 04/27/2021 3:14 PM PARTS CONSULTANT Encounter for hepatitis C screening test for low risk patient from Last 3 Months or Most Recently Relevant to Health Maintenance Results * [place] ARTHROCENTESIS ASPIR&/INJ MAJOR JT/BURSA W/O US (05/17/2024 1:15 PM PARTS CONSULTANT) Mary Merritte, MEDICAL LIBRARY ASSISTANT - 05/17/2024 1:15 PM PARTS CONSULTANT Mary Baez NP ? 05/17/2024 ??1:39 PM Large Joint (Hip, Knee, Shoulder) Injection: R knee Performed by: aMry Baez NP Authorized by: Mary Baez NP [...] with no immediate complications us Mary Baez MEDICAL LIBRARY ASSISTANT IN CLINIC/BEDSIDE ORDER MARK Final Result * External Reference Lab Results (04/05/2024 12:19 PM PARTS CONSULTANT) Historical Provider LAB BLOOD ORDERABLES Evie l Result * SCAN - LABS (04/05/2024) us Provider Scanning Final Result * Transthoracic Echo (TTE) Complete W Doppler/CF (04/04/2024 9:16 AM PARTS CONSULTANT) Anatomical Region Laterality Modality Ultrasound Historical Provider CV ECHO PROCEDURES Final Result * COLONOSCOPY (07/30/2021 7:29 AM CDT) Anatomical Region Laterality Modality Other Narrative Procedure Note Raf Ovalles MD - 07/30/2021 7:29 AM CDT [facility] Patient Name: Celeste Tom Procedure Date: 07/30/2021 7:29 AM Date of : 1955 Admit Type: Outpatient Age: 66 Gender: Female Attending MD: Raf Ovalles M.D. Room: [facility] ENDOSCOPY ROOM 2 Note Status: Finalized Patient [...] scope was passed under direct vision. TheColonoscope [id number] was introduced through the anus and advanced [...] 7:29 AM Procedure Code(s): --- Professional --- 89446, Colonoscopy, flexible; with removal of tumor(s), polyp(s), or other lesion(s) by snare technique 00380, 59, Colonoscopy, flexible; with removal of tumor(s), polyp(s),or other lesion(s) by hot biopsy forceps 63095, 59, Colonoscopy, flexible; with biopsy, single or [...] history of colonic polyps CPT copyright 2020 [employer]. All rights reserved. The codes documented in this report are preliminary and upon tester regulator reviewmay be revised to meet current compliance requirements. Recognized by the [place] for promoting quality in endoscopy us Raf Ovalles MD ENDOSCOPY PROCEDURES Final Re sult * (ABNORMAL) Screening Mammogram Bilateral W Joel (06/29/2021 2:49 PM PARTS CONSULTANT) Anatomical Region Laterality Modality Breast Bilateral Mammography 07/07/2021 3:04 PM PARTS CONSULTANT Impressions 07/07/2021 3:04 PM PARTS CONSULTANT 1. ??Indeterminate right breast asymmetries. ??Further evaluation is recommended with diagnostic right mammography and possible diagnostic right breast ultrasound. 2. ??No mammographic evidence of malignancy in the left breast. Routine screening mammography of the left breast is recommended in 1 year. BI-RADS: 0 - Additional imaging evaluation is necessary. Electronically signed by: Uriel Lerner M.D. Narrative 07/07/2021 3:04 PM PARTS CONSULTANT EXAMINATION: SCREENING MAMMOGRAM BILATERAL W JOEL ORDERING [...] findings in either breast. us Sybil Gilmore MEDICAL LIBRARY ASSISTANT IMG MAMMO PROCEDURES Final Resul t * Dexa Axial Skeleton Bone Density 1 or 2 Site (06/29/2021 2:32 PM PARTS CONSULTANT) Anatomical Region Laterality Modality Body N/A Other 06/29/2021 3:12 PM PARTS CONSULTANT Narrative 06/29/2021 3:13 PM PARTS CONSULTANT EXAM DESCRIPTION: ?? DEXA AXIAL SKELETON BONE DENSITY 1 OR MORE SITES REASON FOR STUDY: ?66 ??year old postmenopausal ??female ??with given history of osteoporosis screening. Washerette Machine Operator/Model: ?? shopandsave Discovery SL (S/N [id number]) CLINICAL INFORMATION: Current height: ?? 67 ??inches [...] PM T: ??06/29/2021 3:13 PM Report ID: [id number] Reading Location: ??[id number] Procedure Note Sergio Reid MD - 06/29/2021 EXAM DESCRIPTION: DEXA AXIAL SKELETON BONE DENSITY 1 OR MORE SITES REASON FOR STUDY: 66 year old postmenopausal female with givenhistory of osteoporosis screening. Washerette Machine Operator/Model: PersistIQ (S/N [id number]) CLINICAL INFORMATION: Current height: 67 inches Maximum [...] by Sergio Reid M.D. MD: Report ID: [id number] Reading Location: [place] [address] Sybil Gilmore NP IMG DXA PROCEDURES Final Result * Hepatitis C antibody (04/27/2021 3:14 PM PARTS CONSULTANT) Pathologist [facility] Hep C Ab Nonreactive Nonreactive [facility] Comment: Interpretive Data Nonreactive: Antibodies to HCV [...] last revised on 2019. Testing performed by: [facility], [address] [place] [address], [place]., [address] Blood 04/27/2021 3:14 PM PARTS CONSULTANT 04/28/2021 9:12 AM PARTS CONSULTANT Sybil Gilmore NP LAB MICROBIOLOGY - GENERAL ORDER MARK Final Result [facility] ([place]) [address] [facility] Department [place] [address] from Last 3 Months or Most Recently Relevant to Health Maintenance Insurance [employer] MEDICARE PPO [employer] MEDICARE PPO [employer] CHOICE MEDICARE PPO Advance Directives For more information, please contact: [phone] * Full Code (Latest Code Status on File) Date Activated Date Inactivated Comments 07/09/2022 9:06 AM 07/12/2022 7:08 PM * Full Code Date Activated Date Inactivated Comments 07/30/2021 7:48 AM 07/30/2021 2:27 PM * Full Code Date Activated Date Inactivated Comments 07/30/2021 7:48 AM 07/30/2021 7:48 AM Care Teams Ward Secretary Relationship Specialty Start Date End Date Saleem Rod MD [address] [facility] [address] CAMARILLO [address] [place] [id number] PCP - General Family Medicine 11/18/22 Souleymane Jackson MD Consulting Physician Pulmonary Disease 11/13/18 Lupillo Brownlee MD Referring Physician Orthopedic Surgery 11/13/18 Yossi Caro MD Consulting Physician Cardiology 02/14/20 Avery Lux MD Anesthesiologist Anesthesiology 02/14/20 Raf Ovalles MD [address] [place] [address] DR [address] [facility] [place] [place] [address] Consulting Physician Gastroenterology 02/14/20 [place] [id number] [address] Consulting Physician Cardiology 12/29/20
--- OUTSIDE RECORDS SUMMARY | 2024-06-19 17:31 | XMS_ITS | Encounter Summary ---
Author Organization [facility] Healthcare Address [address] [place] [address] Care Team Providers Care Kiln Door Repairer Name Role Phone Souleymane Jackson MD Unavailable [phone] Lupillo Brownlee MD Unavailable [phone] Yossi Caro MD Unavailable [phone] Avery Lux MD Unavailable [phone] Raf Ovalles MD Unavailable [phone] Sindy Hatch MD Unavailable [phone] Saleem Rod MD Primary Care Provider Encounter Details Date Type Department Care Team (Late st Contact Info) Description 06/19/2024 Orders Only [facility] Medical [facility] Pulmonary at [address] [place] [address] Kevin Blanton MD [address] [place] [address] [address] [place] [address] Social History Tobacco Use Types Packs/Day Years [...] than three times a week 07/13/2022 Attends [employer] Services Not on file 07/13 Do you belong to any clubs o r organizations such as protestant groups, unions, fraternal or athletic groups, or [...] place to sleep or slept in a residential (including now)? No 07/13/2022 Personal Safety Answer Date Recorded Getting School Help Needed Denies 04/28 Comments No Sex and Gender Information Value Date Recorded Sex Assigned at Not on file Legal Sex Female 12:26 AM GLOBAL COMPENSATION ANALYST Gender Identity Not on file Sexual Orientation Not on file documented as of this encounter Ordered Prescriptions Prescription Sig Dispense Quantity Refills Last Filled Start Date End Date predniSONE (DELTASONE) 20 mg tablet Take 2 tablets (40 mg) by mouth daily 10 tablet 06/19/2024 doxycycline (VIBRAMYCIN) 100 mg capsule Take 1 tablet/capsul e (100 mg total) by mouth 2 (two) times a day for 5 days 10 tablet/capsule 06/19/2024 documented in this encounter Plan of Treatment Upcoming Encounters Date Type Department Care Team (Late st Contact Info) Description 08/03/2024 8:55 AM CDT Hospital Encounter [address] [address] Felicity Galarza MD [address] [place] [address] [address] [place] [address] 08/03/2024 8:55 AM CDT - 08/03/2024 9:25 AM CDT Surgery [address] [address] Felicity Galarza MD [address] [place] [address] [address] [place] [address] COLONOSCOPY Scheduled Procedures Name Priority Associated Diagnoses [...] Diagnoses Not on filedocumented in this encounter Care Teams Kiln Door Repairer Relationship Specialty Start Date End Date Saleem Rod MD [address] [facility] [address] [place] [address] PCP - General Family Medicine 11/18/22 Souleymane Jackson MD Consulting Physician Pulmonary Disease 11/13/18 Lupillo Brownlee MD Referring Physician Orthopedic Surgery 11/13/18 Yossi Caro MD Consulting Physician Cardiology 02/14/20 Avery Lux MD Anesthesiologist Anesthesiology 02/14/20 Raf Ovalles MD [address] [facility] [address] [place] [id number] Consulting Physician Gastroenterology 02/14/20 [place] [id number] [address] Consulting Physician Cardiology 12/29/20 documented as of this encounter
--- OUTSIDE RECORDS SUMMARY | 2024-06-19 17:31 | XMS_ITS | Clinical Summary ---
Author Organization [facility] Address [address] [place] [address] Phone Care Team Providers Care Flight Test Supervisor Name Role Phone JOEL DOLL MD Unavailable [phone] Reason for Visit and Chief Complaint NO SHOW Problems Includes: Problems addressed during this encounter and other active Problems All Visits Onset Date Resolved Date Provider Condition S tatus Ventral Hernia 08/11/2017 JOEL Silverio MD Active Last Documented On 08/11/2017 11:41AM ; [facility] Note: Unchanged Female Pelvic Pain 11/05/2014 JOEL LEHMAN MD Active Last Documented On 11/05/2014 3:59PM ; [facility] Note: Unchanged Cervical Dysplasia 11/05/2014 JOEL LEHMAN MD Active Last Documented On 11/05/2014 3:59PM ; [facility] Note: Unchanged - with Dr Walton: in the 9 0's: colp/bx/cone bx/ then freezing: nl since then Colon Cancer 11/05/2014 JOEL DOLL MD Active Last Documented On 11/05/2014 3:59PM ; [facility] Note: Unchanged - in 2001: no chemo or r adiation Breast Fibrocystic Disease 11/05/2014 JOEL DOLL MD Active Last Documented On 11/05/2014 3:59PM ; [facility] Note: Unchanged 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 JOEL FERNÁNDEZ MD Active Last Documented On 11/05/2014 3:59PM ; [facility] Note: Unchanged Plan of Treatment No [...] 10:27AM By MAMADOU BURKS ; [facility] Paxil 40MG Oral Tablet 03/01/2017 Provider: Diagnosis: Last Documented On 7 2:51PM By MAMADOU BURKS ; [facility] Breo Ellipta 200-25MCG/INH I nhalation Aerosol Powder Breath Activated 03/01/2017 Provider: Diagnosis: Last Documented On 7 2:52PM By MAMADOU BURKS ; [facility] Ambien 10MG Oral Tablet 03/01/2017 Provider: Diagnosis: Last Documented On 7 2:53PM By MAMADOU BURKS ; [facility] Bentyl 20MG Oral Tablet 03/01/2017 Provider: Diagnosis: takes 40mg Last Documented On 7 2:54PM By MAMADOU BURKS ; [facility] Vicodin 5-300MG Oral Tablet 03/01/2017 Provider: Diagnosis: Last Documented On 7 2:54PM By MAMADOU BURKS ; [facility] PriLOSEC OTC 20MG Oral Tablet Delayed Release 03/01/20 Provider: Diagnosis: Last Documented On 7 2:55PM By MAMADOU BURKS ; [facility] Mometasone Furoate 0.1% External Ointment 03/01/2017 Provider: Diagnosis: Last Documented On 7 2:56PM By MAMADOU BURKS ; [facility] Ibuprofen 600MG Oral Tablet 03/01/2017 Provider: Diagnosis: prn Last Documented On 7 2:56PM By MAMADOU BURKS ; [facility] PARoxetine HCl 40 MG Tablet 11/03/2014 Provider: Diagnosis: Last Documented On 5 2:48PM By NEGRITA COTTER LPN ; [facility] ALPRAZolam 0.5 MG Tablet 10/17/2014 Provider: Diagnosis: Last Documented On 5 2:48PM By NEGRITA COTTER LPN ; [facility] Pravastatin Sodium 40 MG Tablet 08/12/2014 Provider: Diagnosis: Last Documented On 5 2:48PM By NEGRITA COTTER LPN ; [facility] Medications Administered Includes: Administered Medications from [...] Active Last Documented On 8 11:03AM ; [facility] Xopenex Concentrate Allergy 11/05/2014 Active Last Documented On 8 11:03AM ; [facility] Quinolones Allergy 08/05/2017 Active Last Documented On 8 12:00PM ; [facility] Levaquin Allergy 11/05/2014 Active Last Documented On 8 11:03AM ; [facility] Latex Allergy 11/05/2014 Active Last Documented On 8 11:03AM ; [facility] Effexor XR Allergy 03/01/2017 Active Last Documented On 8 11:03AM ; [facility] Ceftin Allergy 11/05/2014 Active Last Documented On 8 11:03AM ; [facility] Insurance Includes: Active Insurance Policies Plan Name Member ID Group # Subscriber Relationship Effect matthew Dates 1 - [facility] [id number] LEAH Rodriguez Clinical Notes Includes: Clinical Notes from this encounter No Clinical Notes Recorded
--- OUTSIDE RECORDS SUMMARY | 2024-06-19 17:31 | XMS_ITS ---
Author Organization [facility] Address [address] [place] [address] Phone Care Team Providers Care Wheelage Clerk Name Role Phone JOEL DOLL MD Unavailable [phone] Problems Includes: Active, inactive, and resolved Problems All Visits Onset Date Resolved Date Provider Condition S tatus Ventral Hernia 08/11/2017 JOEL Silverio MD Active Last Documented On 08/11/2017 11:41AM ; [facility] Note: Unchanged Female Pelvic Pain 11/05/2014 JOEL LEHMAN MD Active Last Documented On 11/05/2014 3:59PM ; [facility] Note: Unchanged Cervical Dysplasia 11/05/2014 JOEL LEHMAN MD Active Last Documented On 11/05/2014 3:59PM ; [facility] Note: Unchanged - with Dr Walton: in the 9 0's: colp/bx/cone bx/ then freezing: nl since then Colon Cancer 11/05/2014 JOEL DOLL MD Active Last Documented On 11/05/2014 3:59PM ; [facility] Note: Unchanged - in 2001: no chemo or r adiation Breast Fibrocystic Disease 11/05/2014 JOEL DOLL MD Active Last Documented On 11/05/2014 3:59PM ; [facility] Note: Unchanged 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 JOEL FERNÁNDEZ MD Active Last Documented On 11/05/2014 3:59PM ; [facility] Note: Unchanged Plan of Treatment Findings Encounter Date Ordered Clinical summary pro vided to patient PROBLEM VISIT with SARAH CLAROS BC 08/03/2017 Last Documented On 8 12:02PM ; [facility] She will let us know if she has other problems in the meantime ANNUAL SADDLE MAKER EXAM with JOEL DOLL MD 03/01/2017 Last Documented On 7 3:43PM ; [facility] Ordered follow-up visit 1 ye ar or as needed ANNUAL SADDLE MAKER EXAM with JOEL DOLL MD 03/01/2017 Last Documented On 7 3:43PM ; [facility] She will let us know if she has other problems in the meantime NEW CULTURE ROOM WORKER EXAM with JOEL DOLL MD 11/05/2014 Last Documented On 5 4:02PM ; [facility] Ordered follow-up visit 1 ye ar or as needed NEW CULTURE ROOM WORKER EXAM with JOEL DOLL MD 11/05/2014 Last Documented On 5 4:02PM ; [facility] Instructions to patient ER/ Pain Precautions pyelone phritis precautions given Last Documented On 8 11:46AM ; [facility] Instructions for patient : B reast Self Exam discussed Last Documented On 7 3:22PM ; [facility] Instructions for patient : B reast Self Exam discussed Last Documented On 5 3:25PM ; [facility] Education and Decision Aids were provided during visit for: STD screening offered and de clined Last Documented On 7 3:22PM ; [facility] Bone Mineral Density Screeni ng guidelines reviewed : will rpt in 2019 Last Documented On 7 3:27PM ; [facility] Patient Education: Daily pascale cium and vitamin D Last Documented On 7 3:22PM ; [facility] Patient Education: weight be aring exercise Last Documented On 7 3:22PM ; [facility] Colonoscopy screening guidel gama discussed Last Documented On 7 3:22PM ; [facility] STD screening offered and de clined Last Documented On 5 3:25PM ; [facility] Bone Mineral Density Screeni ng guidelines reviewed Last Documented On 5 3:25PM ; [facility] Patient Education: Daily pascale cium and vitamin D Last Documented On 5 3:25PM ; [facility] Patient Education: weight be aring exercise Last Documented On 5 3:25PM ; [facility] Colonoscopy screening guidel gama discussed Last Documented On 5 3:25PM ; [facility] Assessments Includes: Assessments for all patient encounters Findings Encounter Date Ventral hernia PROBLEM VISIT with JOEL Silverio MD 08/11/2017 Last Documented On 8 11:42AM ; [facility] Female pelvic pain PROBLEM VISIT with SARAH YORK RN [facility] 08/03/2017 Last Documented On 8 12:02PM ; [facility] Vaginitis PROBLEM VISIT with SARAH RO RN [facility] 08/03/2017 Last Documented On 8 12:02PM ; [facility] Cervical stenosis/stricture ANNUAL SADDLE MAKER EXAM with JOEL DOLL MD 03/01/2017 Last Documented On 7 3:43PM ; [facility] Fibrocystic disease of breast ANNUAL SADDLE MAKER EXAM wi JOEL DOLL MD 03/01/2017 Last Documented On 7 3:43PM ; [facility] NORMAL FEMALE EXAM ANNUAL SADDLE MAKER EXAM with JOEL FERNÁNDEZ MD 03/01/2017 Last Documented On 7 3:43PM ; [facility] Screening Malig. Neoplasm Rectum ANNUAL SADDLE MAKER EXAM with JOEL DOLL MD 03/01/2017 Last Documented On 7 3:43PM ; [facility] Cervical stenosis/stricture 2 WK CK-UP with JOEL DOLL MD 12/18/2014 Last Documented On 5 2:23PM ; [facility] Female pelvic pain 2 WK CK-UP with JOEL Silverio MD 12/18/2014 Last Documented On 5 2:23PM ; [facility] Female pelvic pain NEW CULTURE ROOM WORKER EXAM with JOEL CRUZ MD 11/05/2014 Last Documented On 5 4:02PM ; [facility] Fibrocystic disease of breast NEW CULTURE ROOM WORKER EXAM with JOEL DOLL MD 11/05/2014 Last Documented On 5 4:02PM ; [facility] NORMAL FEMALE EXAM NEW CULTURE ROOM WORKER EXAM with JOEL CRUZ MD 11/05/2014 Last Documented On 5 4:02PM ; [facility] Screening Malig. Neoplasm Rectum NEW CULTURE ROOM WORKER EXAM wi th JOEL DOLL MD 11/05/2014 Last Documented On 5 4:02PM ; [facility] Stenosis NEW CULTURE ROOM WORKER EXAM with JOEL DOLL MD 11/05/2014 Last Documented On 5 4:02PM ; [facility] Instructions Includes: Instructions for all patient encounters Instructions to patient ER/ Pain Precautions pyelone phritis precautions given Last Documented On 8 11:46AM ; [facility] Instructions for patient : B reast Self Exam discussed Last Documented On 7 3:22PM ; [facility] Instructions for patient : B reast Self Exam discussed Last Documented On 5 3:25PM ; [facility] Education and Decision Aids were provided during visit for: STD screening offered and de clined Last Documented On 7 3:22PM ; [facility] Bone Mineral Density Screeni ng guidelines reviewed : will rpt in 2019 Last Documented On 7 3:27PM ; [facility] Patient Education: Daily pascale cium and vitamin D Last Documented On 7 3:22PM ; [facility] Patient Education: weight be aring exercise Last Documented On 7 3:22PM ; [facility] Colonoscopy screening guidel gama discussed Last Documented On 7 3:22PM ; [facility] STD screening offered and de clined Last Documented On 5 3:25PM ; [facility] Bone Mineral Density Screeni ng guidelines reviewed Last Documented On 5 3:25PM ; [facility] Patient Education: Daily pascale cium and vitamin D Last Documented On 5 3:25PM ; [facility] Patient Education: weight be aring exercise Last Documented On 5 3:25PM ; [facility] Colonoscopy screening guidel gama discussed Last Documented On 5 3:25PM ; [facility] Medical Equipment - Implanted Devices Includes: Current and historical Devices No Medical Equipment Recorded Medications Includes: Current and historical Medications Current Medications (continue as prescribed) Albuterol Sulfate 1.25MG/3ML Inhalation Nebuliza tion solution 08/11/2017 Provider: Diagnosis: Last Documented On 8 10:27AM By MAMADOU BURKS ; [facility] Paxil 40MG Oral Tablet 03/01/2017 Provider: Diagnosis: Last Documented On 7 2:51PM By MAMADOU BURKS ; [facility] Breo Ellipta 200-25MCG/INH I nhalation Aerosol Powder Breath Activated 03/01/2017 Provider: Diagnosis: Last Documented On 7 2:52PM By MAMADOU BURKS ; [facility] Ambien 10MG Oral Tablet 03/01/2017 Provider: Diagnosis: Last Documented On 7 2:53PM By MAMADOU BURKS ; [facility] Bentyl 20MG Oral Tablet 03/01/2017 Provider: Diagnosis: takes 40mg Last Documented On 7 2:54PM By MAMADOU BURKS ; [facility] Vicodin 5-300MG Oral Tablet 03/01/2017 Provider: Diagnosis: Last Documented On 7 2:54PM By MAMADOU BURKS ; [facility] PriLOSEC OTC 20MG Oral Tablet Delayed Release 03/01/20 Provider: Diagnosis: Last Documented On 7 2:55PM By MAMADOU BURKS ; [facility] Mometasone Furoate 0.1% External Ointment 03/01/2017 Provider: Diagnosis: Last Documented On 7 2:56PM By MAMADOU BURKS ; [facility] Ibuprofen 600MG Oral Tablet 03/01/2017 Provider: Diagnosis: prn Last Documented On 7 2:56PM By MAMADOU BURKS ; [facility] PARoxetine HCl 40 MG Tablet 11/03/2014 Provider: Diagnosis: Last Documented On 5 2:48PM By NEGRITA COTTER LPN ; [facility] ALPRAZolam 0.5 MG Tablet 10/17/2014 Provider: Diagnosis: Last Documented On 5 2:48PM By NEGRITA COTTER LPN ; [facility] Pravastatin Sodium 40 MG Tablet 08/12/2014 Provider: Diagnosis: Last Documented On 5 2:48PM By NEGRITA COTTER LPN ; [facility] Past Medications on file Clindamycin Phosphate 2% Vaginal Cream 08/05/2017 - 08/12/2017 Provider: SARAH RO RN NAREN Diagnosis: Acute vaginitis as directed 1 CHRISTY IN VAGINA EVERY NIGHT X 7 Last Documented On 8 12:16PM By SARAH CRISTOBAL ; [facility] Ciprofloxacin HCl 500MG Oral Tablet 08/03/2017 - 08/08/2017 Provider: SARAH CLAROS Diagnosis: Acute vaginitis One tablet twice a day TAKE DIRECTED W/FOOD Last Documented On 8 11:44AM By SARAH BLANDON ; [facility] Gabapentin 600MG Oral Tablet 03/01/2017 - 08/11/2017 P rovider: Diagnosis: up to tid a day Last Documented On 8 10:26AM By MAMADOU BURKS ; [facility] Spiriva HandiHaler 18 MCG Capsule 12/18/2014 - 018 Provider: Diagnosis: once daily Last Documented On 8 10:26AM By MAMADOU BURKS ; [facility] Zolpidem Tartrate 10 MG Tablet 10/14/2014 - 08/11/2017 Provider: Diagnosis: Last Documented On 8 10:26AM By MAMADOU BURKS ; [facility] Atrovent HFA 17 MCG/ACT Aerosol, solution 08/31/2014 - 03/01/2017 Provider: Diagnosis: Last Documented On 7 2:52PM By MAMADOU BURKS ; [facility] Ipratropium-Albuterol 0.5-2.5 (3) MG/3ML IN SOLN 04/20/2014 - 11/05/2014 Provider: Diagnosis: Last Documented On 5 2:46PM By NEGRITA COTTER LPN ; [facility] Zolpidem Tartrate 10 MG OR TABS 04/15/2014 - 5 Provider: Diagnosis: Last Documented On 5 2:46PM By NEGRITA COTTER LPN ; [facility] Pravastatin Sodium 40 MG OR TABS 04/15/2014 - 11/06/19 15 Provider: Diagnosis: Last Documented On 5 2:46PM By NEGRITA COTTER LPN ; [facility] PARoxetine HCl 40 MG OR TABS 04/09/2014 - 11/05/2014 P rofredder: Diagnosis: Last Documented On 5 2:47PM By NEGRITA COTTER LPN ; [facility] Medications Administered Includes: Administered Medications in patient's chart No Administered Medications Recorded Results Includes: Results from 06/19/2023 through 06/19/2024 No Results Recorded For Specified Dates History of Present Illness History of Present Illness not supported for this document type No History of Present Illness Recorded Social History Description Last Updated In monogamous relationship 08/03/2017 Last Documented On 8 12:02PM ; [facility] Marital history 08/03/2017 Last Documented On 8 12:02PM ; [facility] Not exercising regularly 08/03/2017 Last Documented On 8 12:02PM ; [facility] Not using alcohol 08/03/2017 Last Documented On 8 12:02PM ; [facility] Not using drugs 08/03/2017 Last Documented On 8 12:02PM ; [facility] Sexually active with 1 partners in the l ast year 08/03/2017 Last Documented On 8 12:02PM ; [facility] Smoking status : Never smoker 08/03/2017 Last Documented On 8 12:02PM ; [facility] Procedures and Surgical History Surgical History Last Updated Previous colposcopy 08/11/2017 Last Documented On 8 11:42AM ; [facility] Dilation + Curettage ---Jen block in about 2004 with hysteroscopy---? not sure why 11/05/2014 Last Documented On 5 4:02PM ; [facility] Surgical / procedural histor y 1998 Lt knee ACL reconstruction ~1999 Rt knee repair - lateral release ~Lt plantar faciotomy ~2001 Lt hemicolectomy also left ovary removed due to Dr Monckton nicked it during hemicolectomy ~2010 repair of abdominal hernia with mesh x 2 ~2010 bowel resection 11/05/2014 Last Documented On 5 4:02PM ; [facility] History of tubal ligation 1982 5 Last Documented On 5 4:02PM ; [facility] Medical History Includes: Medical History in patient's chart Description Last Updated Last pap smear date 03/02/2017 8 Last Documented On 8 11:42AM ; [facility] History of irritable bowel syndrome 07/15 Last Documented On 8 12:02PM ; [facility] History of complete colonoscopy 03/17/20 17 polyps repear in 3 years, [facility] 08/03/2017 Last Documented On 8 12:02PM ; [facility] LMP: 201008/03/2017 Last Documented On 8 12:02PM ; [facility] History of a DXA of the lateral lumbar s pine was performed 11/27/2014 08/03/2017 Last Documented On 8 12:02PM ; [facility] History of Pap smear done 03/02/2017 Last Documented On 8 12:02PM ; [facility] Depression 03/01/2017 Last Documented On 7 3:43PM ; [facility] A colonoscopy was performed scheduled fo r 03/17/17 03/01/2017 Last Documented On 7 3:43PM ; [facility] Last mammogram date: 09/23/2014 7 Last Documented On 7 3:43PM ; [facility] Patient recently had a dexa scan 11/27/2014 -- years ago when on prednisone: 'it was good' 03/01/2017 Last Documented On 7 3:43PM ; [facility] Result: normal 03/01/2017 Last Documented On 7 3:43PM ; [facility] Result: normal 03/01/2017 Last Documented On 7 3:43PM ; [facility] Anxiety 11/05/2014 Last Documented On 5 4:02PM ; [facility] Colon cancer in 2002: no chemo or radiat ion 11/05/2014 Last Documented On 5 4:02PM ; [facility] 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 10/15 Last Documented On 5 4:02PM ; [facility] Cervical dysplasia with Dr Sanders lbi: in the s: colp/bx/cone bx/ then freezing: nl since then 11/05/2014 Last Documented On 5 4:02PM ; [facility] Aborta 1 at 6wks with D&C 11/05/2014 Last Documented On 5 4:02PM ; [facility] Vaginal delivery x 3: 6 8lb 7oz male hemorrhaged ~11/15/77 7lb 8oz male ~09/25/81 7lb 6oz female ~3rd child at age 16 of avelrhabdomyosarcoma 11/05/2014 Last Documented On 5 4:02PM ; [facility] History of urinary tract infection 11/05 Last Documented On 5 4:02PM ; [facility] History of asthma 11/05/2014 Last Documented On 5 4:02PM ; [facility] History of fibrocystic disease of breast 11/05/2014 Last Documented On 5 4:02PM ; [facility] History of hyperlipidemia 11/05/2014 Last Documented On 5 4:02PM ; [facility] History of thyroid disorder nodules 10/15 Last Documented On 5 4:02PM ; [facility] Sexually active 11/05/2014 Last Documented On 5 4:02PM ; [facility] 4 11/05/2014 Last Documented On 5 4:02PM ; [facility] History of screening mammogram was perfo rmed 09/23/2014 11/05/2014 Last Documented On 5 4:02PM ; [facility] Para 3 11/05/2014 Last Documented On 5 4:02PM ; [facility] Family History Includes: Family History in patient's chart Description Last Updated Maternal aunt's history of F amily history of breast neoplasm malignant mat aunt in her 60's 03/01/2017 Last Documented On 7 3:43PM ; [facility] Family history of breast neoplasm malign ant mat aunt in her 60's 11/05/2014 Last Documented On 5 4:02PM ; [facility] Family history of diabetes mellitus Moth er, brother, & MGF 11/05/2014 Last Documented On 5 4:02PM ; [facility] Family history of heart disease parents 11/05/2014 Last Documented On 5 4:02PM ; [facility] Family history of hypercholesterolemia M other & brothers 11/05/2014 Last Documented On 5 4:02PM ; [facility] Family history of hypertension parents 0 11/05/2014 Last Documented On 5 4:02PM ; [facility] Review of Systems Review of Systems not [...] Last Documented On 8 11:03AM ; [facility] Xopenex Concentrate Allergy 11/05/2014 Active Last Documented On 8 11:03AM ; [facility] Quinolones Allergy 08/05/2017 Active Last Documented On 8 12:00PM ; [facility] Levaquin Allergy 11/05/2014 Active Last Documented On 8 11:03AM ; [facility] Latex Allergy 11/05/2014 Active Last Documented On 8 11:03AM ; [facility] Effexor XR Allergy 03/01/2017 Active Last Documented On 8 11:03AM ; [facility] Ceftin Allergy 11/05/2014 Active Last Documented On 8 11:03AM ; [facility] Insurance Includes: Active Insurance Policies Plan Name Member ID Group # Subscriber Relationship Effect matthew Dates 1 - [facility] [id number] LEAH LAZO Self Clinical Notes Includes: Signed Clinical Notes starting from 06/04/2022 No Clinical Notes Recorded
--- OUTSIDE RECORDS SUMMARY | 2024-06-19 17:31 | XMS_ITS | Clinical Summary ---
Author Organization [facility] Address [address] [place] [address] Phone Care Team Providers Care Manager Of Marketing Name Role Phone JOEL DOLL MD Unavailable [phone] Reason for Visit and Chief Complaint * PHONE CALL Problems Includes: Problems addressed during this encounter and other active Problems Current Visit Onset Date Resolved Date Provider Conditio n Status Cervical Dysplasia 11/05/2014 JOEL DOLL MD Active Last Documented On 11/05/2014 3:59PM ; [facility] Note: Unchanged - with Dr Walton: in the 9 0's: colp/bx/cone bx/ then freezing: nl since then Colon Cancer 11/05/2014 JOEL DOLL MD Activ e Last Documented On 11/05/2014 3:59PM ; [facility] Note: Unchanged - in 2001: no chemo or r adiation Past Visits Onset Date Resolved Date Provider Condition Status Ventral Hernia 08/11/2017 JOEL DOLL MD Act matthew Last Documented On 08/11/2017 11:41AM ; [facility] Note: Unchanged Female Pelvic Pain 11/05/2014 JOEL DOLL MD Active Last Documented On 11/05/2014 3:59PM ; [facility] Note: Unchanged Breast Fibrocystic Disease 11/05/2014 JOEL DOLL MD Active Last Documented On 11/05/2014 3:59PM ; [facility] Note: Unchanged 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 JOEL Lam Active Last Documented On 11/05/2014 3:59PM ; [facility] Note: Unchanged Plan of Treatment No Plan [...] IN VAGINA EVERY NIGHT X 7 Pharmacy: [address], [address] - Last Documented On 8 12:16PM By SARAH CLAROS- ; [facility] Current Medications (continue as prescribed) Albuterol Sulfate 1.25MG/3ML Inhalation Nebuliza tion solution 08/11/2017 Provider: Diagnosis: Last Documented On 8 10:27AM By MAMADOU BURKS ; [facility] Paxil 40MG Oral Tablet 03/01/2017 Provider: Diagnosis: Last Documented On 7 2:51PM By MAMADOU BURKS ; [facility] Breo Ellipta 200-25MCG/INH I nhalation Aerosol Powder Breath Activated 03/01/2017 Provider: Diagnosis: Last Documented On 7 2:52PM By MAMADOU BURKS ; [facility] Ambien 10MG Oral Tablet 03/01/2017 Provider: Diagnosis: Last Documented On 7 2:53PM By MAMADOU BURKS ; [facility] Bentyl 20MG Oral Tablet 03/01/2017 Provider: Diagnosis: takes 40mg Last Documented On 7 2:54PM By MAMADOU BURKS ; [facility] Vicodin 5-300MG Oral Tablet 03/01/2017 Provider: Diagnosis: Last Documented On 7 2:54PM By MAMADOU BURKS ; [facility] PriLOSEC OTC 20MG Oral Tablet Delayed Release 03/01/20 17 Provider: Diagnosis: Last Documented On 7 2:55PM By MAMADOU BURKS ; [facility] Mometasone Furoate 0.1% External Ointment 03/01/2017 Provider: Diagnosis: Last Documented On 7 2:56PM By MAMADOU BURKS ; [facility] Ibuprofen 600MG Oral Tablet 03/01/2017 Provider: Diagnosis: prn Last Documented On 7 2:56PM By MAMADOU BURKS ; [facility] PARoxetine HCl 40 MG Tablet 11/03/2014 Provider: Diagnosis: Last Documented On 5 2:48PM By NEGRITA COTTER LPN ; [facility] ALPRAZolam 0.5 MG Tablet 10/17/2014 Provider: Diagnosis: Last Documented On 5 2:48PM By NEGRITA COTTER LPN ; [facility] Pravastatin Sodium 40 MG Tablet 08/12/2014 Provider: Diagnosis: Last Documented On 5 2:48PM By NEGRITA COTTER LPN ; [facility] Past Medications on file Ciprofloxacin HCl 500MG Oral Tablet 08/03/2017 - 08/08/2017 Provider: SARAH RO RN NAREN Diagnosis: Acute vaginitis One tablet twice a day TAKE DIRECTED W/FOOD Last Documented On 8 11:44AM By SARAH CLAROS- ; [facility] Medications Administered Includes: Administered Medications from this [...] 11/05/2014 Last Documented On 8 10:53AM ; [facility] Surgical / procedural histor y 1998 Lt knee ACL reconstruction ~1999 Rt knee repair - lateral release ~Lt plantar faciotomy ~2001 Lt hemicolectomy also left ovary removed due to Dr Schmitz nicked it during hemicolectomy ~2010 repair of abdominal hernia with mesh x 2 ~2011 bowel resection 11/05/2014 Last Documented On 8 10:53AM ; [facility] History of tubal ligation 1982 5 Last Documented On 8 10:53AM ; [facility] Medical History Includes: Medical History addressed during this encounter Description Last Updated Last pap smear date 11/05/2014 08/11/2017 Last Documented On 8 10:53AM ; [facility] History of irritable bowel syndrome 07/15 Last Documented On 8 10:53AM ; [facility] History of complete colonoscopy 03/17/20 17 polyps repear in 3 years, [facility] 08/03/2017 Last Documented On 8 10:53AM ; [facility] LMP: 2011 08/03/2017 Last Documented On 8 10:53AM ; [facility] History of a DXA of the lateral lumbar s pine was performed 11/27/2014 08/03/2017 Last Documented On 8 10:53AM ; [facility] History of Pap smear done 03/02/2017 Last Documented On 8 10:53AM ; [facility] Depression 03/01/2017 Last Documented On 8 10:53AM ; [facility] A colonoscopy was performed scheduled fo r 03/17/17 03/01/2017 Last Documented On 8 10:53AM ; [facility] Last mammogram date: 09/23/2014 7 Last Documented On 8 10:53AM ; [facility] Patient recently had a dexa scan 11/27/2014 -- years ago when on prednisone: 'it was good' 03/01/2017 Last Documented On 8 10:53AM ; [facility] Result: normal 03/01/2017 Last Documented On 8 10:53AM ; [facility] Result: normal 03/01/2017 Last Documented On 8 10:53AM ; [facility] Anxiety 11/05/2014 Last Documented On 8 10:53AM ; [facility] Colon cancer in 2001: no chemo or radiat ion 11/05/2014 Last Documented On 8 10:53AM ; [facility] 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 10/15 Last Documented On 8 10:53AM ; [facility] Cervical dysplasia with Dr A lbi: in the 90's: colp/bx/cone bx/ then freezing: nl since then 11/05/2014 Last Documented On 8 10:53AM ; [facility] Aborta 1 at 6wks with D&C 11/05/2014 Last Documented On 8 10:53AM ; [facility] Vaginal delivery x 3: 6 8lb 7oz male hemorrhaged ~11/15/77 7lb 8oz male ~09/25/81 7lb 6oz female ~3rd child at age 16 of avelrhabdomyosarcoma 11/05/2014 Last Documented On 8 10:53AM ; [facility] History of urinary tract infection 11/05 Last Documented On 8 10:53AM ; [facility] History of asthma 11/05/2014 Last Documented On 8 10:53AM ; [facility] History of fibrocystic disease of breast 11/05/2014 Last Documented On 8 10:53AM ; [facility] History of hyperlipidemia 11/05/2014 Last Documented On 8 10:53AM ; [facility] History of thyroid disorder nodules 10/15 Last Documented On 8 10:53AM ; [facility] Sexually active 11/05/2014 Last Documented On 8 10:53AM ; [facility] 4 11/05/2014 Last Documented On 8 10:53AM ; [facility] History of screening mammogram was perfo rmed 09/23/2014 11/05/2014 Last Documented On 8 10:53AM ; [facility] Para 3 11/05/2014 Last Documented On 8 10:53AM ; [facility] Family History Includes: Family History addressed during this encounter Description Last Updated Maternal aunt's history of F amily history of breast neoplasm malignant mat aunt in her 60's 03/01/2017 Last Documented On 8 10:53AM ; [facility] Family history of breast neoplasm malign ant mat aunt in her 60's 11/05/2014 Last Documented On 8 10:53AM ; [facility] Family history of diabetes mellitus Moth er, brother, & MGF 11/05/2014 Last Documented On 8 10:53AM ; [facility] Family history of heart disease parents 11/05/2014 Last Documented On 8 10:53AM ; [facility] Family history of hypercholesterolemia M other & brothers 11/05/2014 Last Documented On 8 10:53AM ; [facility] Family history of hypertension parents 0 11/05/2014 Last Documented On 8 10:53AM ; [facility] Review of Systems Includes: Review of Systems [...] 8 11:03AM ; [facility] Xopenex Concentrate Allergy 11/05/2014 Active Last Documented On 8 11:03AM ; [facility] Quinolones Allergy 08/05/2017 Active Last Documented On 8 12:00PM ; [facility] Levaquin Allergy 11/05/2014 Active Last Documented On 8 11:03AM ; [facility] Latex Allergy 11/05/2014 Active Last Documented On 8 11:03AM ; [facility] Effexor XR Allergy 03/01/2017 Active Last Documented On 8 11:03AM ; [facility] Ceftin Allergy 11/05/2014 Active Last Documented On 8 11:03AM ; [facility] Encounters Encounter Provider Location Date Check-In Time Check-Out Time Diagnosis * PHONE CALL SARAH CLAROS 08/05/2017 10:53AM 11:59PM Insurance Includes: Active Insurance Policies Plan Name Member ID Group # Subscriber Relationship Effect matthew Dates 1 - [facility] [id number] LEAH Rodriguez Clinical Notes Includes: Clinical Notes from this encounter No Clinical Notes Recorded
--- OUTSIDE RECORDS SUMMARY | 2024-06-19 17:31 | XMS_ITS | CONTINUITY OF CARE DOCUMENT ---
Author Name triston harrymartha Address Unknown Organization [facility] Address [address] [place] [address] Phone [phone] Care Team Providers Care Contract Graphic Designer Name Role Phone Holden OTERO, Sindy Unavailable Saleem Rod MD Unavailable Saleem Rod MD Unavailable [phone] PROBLEMS Condition Status Date Provider Notes Shortness of breath active Beverley Singletary RN S/P BI-V PM Biotronik (MRI Safe) active Est her Brooke Cardiology examination active Brody bliss DO Asthma active Brody Kemp DO Colon cancer active Brody Kemp DO LUPE on CPAP active Brody Kemp DO Morbid obesity active Brody Kemp DO Hyperlipidemia active Brody Kemp DO Anemia active Brody Kemp DO (Histo ry of) Anxiety active Brody Kemp DO (Histo ry of) Atrial Fibrillation active Brody Kemp DO Hypertension active Brody Kemp DO Sick sinus syndrome active Rao Chase Carotid arterial disease active James Hodgson Rectal bleeding active Sindy Hatch MD ENCOUNTERS Date Type Provider Location Encounter Diag nosis - In-person encounter Office Visit Sindy [facility] Rectal bleeding - In-person encounter Office Visit Sindy H[facility] - In-person encounter Office Visit Sindy Hatch MD [facility] - In-person encounter Office Visit Sindy Hatch MD [facility] Carotid arterial disease - In-person encounter Office Visit Sindy Hatch MD [facility] - In-person encounter Office Visit Sindy Hatch MD [facility] - In-person encounter Office Visit Sindy Hatch MD [facility] - In-person encounter Office Visit Sindy Hatch MD [facility] - In-person encounter Office Visit Sindy Hatch MD [facility] - In-person encounter Office Visit Sindy Hatch MD [facility] - In-person encounter Office Visit Sindy Hatch MD [facility] - In-person encounter Office Visit Sindy Hatch [facility] - In-person encounter Office Visit Sindy Hatch [facility] - In-person encounter Office Visit Sindy Hatch MD [facility] Office - In-person encounter Office Visit Sindy Hatch MD [facility] Sick sinus syndrome - In-person encounter Office Visit Brody Kemp DO [facility] - In-person encounter Office Visit Brody Kemp DO [facility] Cardiology examinationAsthmaColon cancerOSA on CPAPMorbid obesityHyperlipidemiaAnemiaAnxietyAtrial FibrillationHypertension VITAL SIGNS Date Observation Value Provider Body Mass Index (Ratio) 45.10 kg/m2 Dalton Hatch MD blood pressure, diastolic 99 mm[Hg] Li nkLogic blood pressure, systolic 135 mm[Hg] Kirsten kLogic pulse rate 81 /min Antonieta [facility] blood pressure, cuff size regular Ka luda [facility] blood pressure, diastolic 99 mm[Hg] Jasper lares [facility] blood pressure, systolic 135 mm[Hg] Jaqui casey [facility] oxygen saturation, oximetry 90 % Antonieta [facility] weight E&M 288 [lb_av] [facility] 67 [in_i] [facility] Body Mass Index (Ratio) 45.26 kg/m2 Datlon Hatch MD blood pressure, diastolic 79 mm[Hg] Jacqui nkLog blood pressure, systolic 139 mm[Hg] Kirsten [facility] blood pressure, cuff size regular As mindi Jose D blood pressure, diastolic 79 mm[Hg] As mindi Jose D blood pressure, systolic 139 mm[Hg] Serafin juarez Jose D oxygen saturation, oximetry 100 % Kelly Jose D pulse rate 92 /min Kelly Jeffery weight E&M 289.0 [lb_av] Kelly Jeffery Body Mass Index (Ratio) 45.26 kg/m2 Juan Hodgson blood pressure, diastolic 82 mm[Hg] Li nkLogic blood pressure, systolic 122 mm[Hg] Kirsten kLogic blood pressure, cuff size regular Ke rri Linda blood pressure, diastolic 82 mm[Hg] Ke rri Brennonueslade blood pressure, systolic 122 mm[Hg] Kristy Guzman oxygen saturation, oximetry 90 % Annemarie Gruenenfelder respiratory rate E&M 14 /min Annemarie G ruenenfelder pulse rate 91 /min Annemarie Gruenenfe lder weight E&M 289 [lb_av] Annemarie Gruenenfe lder height E&M 67 [in_i] Annemarie Gruenenfe lder Body Mass Index (Ratio) 47.76 kg/m2 Dalton Hatch MD blood pressure, cuff size regular Ke rri Gruenenfelder blood pressure, diastolic 96 mm[Hg] Ke rri Gruenenfelder blood pressure, systolic 150 mm[Hg] Kristy ri Gruenenfelder oxygen saturation, oximetry 90 % Annemarie Gruenenfelder respiratory rate E&M 16 /min Annemarie G ruenenfelder pulse rate 89 /min Annemarie Gruenenfe lder weight E&M 305 [lb_av] Annemarie Gruenenfe lder height E&M 67 [in_i] Annemarie Gruenenfe lder pulse rate 89 /min Verah Bonareri [employer]Y PREVENTION COORDINATOR oxygen saturation, oximetry 92 % Verah Bonareri INJURY PREVENTION COORDINATOR blood pressure, diastolic 106 mm[Hg] Ve rah Bonareri INJURY PREVENTION COORDINATOR blood pressure, systolic 145 mm[Hg] Juan ah Bonareri INJURY PREVENTION COORDINATOR Body Mass Index (Ratio) 47.14 kg/m2 Derick Ahmedzai blood pressure, diastolic 98 mm[Hg] Li nkLogic blood pressure, systolic 140 mm[Hg] Kirsten kLogic blood pressure, diastolic 98 mm[Hg] Mi [facility] blood pressure, systolic 140 mm[Hg] [facility] E&M 93 /min Renetta Bolanos pulse rate 105 /min Vaishali emery oxygen saturation, oximetry 16 % Vaishali Bolanos blood pressure, cuff size large Ciarra rashid Luis Miguel weight E&M 301 [lb_av] Vaishali emery height E&M 67 [in_i] Vaishali emery Body Mass Index (Ratio) 48.23 kg/m2 Dalton Hatch MD blood pressure, diastolic -1 mm[Hg] Jacqui Logre blood pressure, systolic 156 mm[Hg] [facility], diastolic 85 mm[Hg] Yoli arturo Kulkarni blood pressure, systolic 156 mm[Hg] Michell trent Kulkarni Inhaled O2 3 L/min Kim Kulkarni oxygen saturation, oximetry 95 % Kimtrent Kulkarni pulse rate 99 /min Kim Shad weight E&M 308 [lb_av] Kimtrent Kulkarni blood pressure, cuff size large An arturo Kulkarni height E&M 67 [in_i] Kim Kulkarni Body Mass Index (Ratio) 48.55 kg/m2 Dalton Hatch MD oxygen saturation, oximetry 97 % Vaishali Bolanos pulse rate 88 /min Vaishali emery Inhaled O2 3 L/min Vaishali emery blood pressure, diastolic 86 mm[Hg] Ciarra rashid Luis Miguel blood pressure, systolic 152 mm[Hg] Antonio jaya Luis Miguel weight E&M 310 [lb_av] Vaishali emery respiratory rate E&M 16 /min Renetta Bolanos blood pressure, cuff size large Ciarra rashid Luis Miguel height E&M 67 [in_i] Vaishali emery Body Mass Index (Ratio) 48.08 kg/m2 Dalton Hatch MD blood pressure, cuff size large Ke rri Gruenenfelder blood pressure, diastolic 88 mm[Hg] Ke rri Gruenenfelder blood pressure, systolic 154 mm[Hg] Ker ri Gruenenfelder Inhaled O2 3 L/min Annemarie Gruenenfe er oxygen saturation, oximetry 94 % Annemarie Gruenenfelder respiratory rate E&M 18 /min Annemarie G tommieenenfelder pulse rate 74 /min Annemarie Gruenenfe er weight E&M 307 [lb_av] Annemarie Gruenenfe er height E&M 67 [in_i] Annemarie Grfredericknenfe er Body Mass Index (Ratio) 50.27 kg/m2 [place] blood pressure, diastolic 82 mm[Hg] Li nkLogic blood pressure, systolic 122 mm[Hg] Kirsten kLogic blood pressure, cuff size large Ke rri Gruenenfeld blood pressure, diastolic 82 mm[Hg] Ke rri Gruenenfelder blood pressure, systolic 122 mm[Hg] Kristy ri Gruenenfelder Inhaled O2 3 L/min Annemarie Gruenenfe er oxygen saturation, oximetry 97 % Annemarie Grueneshaylaelder respiratory rate E&M 18 /min Anenmarie G tommieenenfelder pulse rate 76 /min Annemarie Gruenenfe er weight E&M 321 [lb_av] Annemarie Gruenenfe lder height E&M 67 [in_i] Annemarie Gruenenfe er Body Mass Index (Ratio) 50.11 kg/m2 [place] blood pressure, diastolic 74 mm[Hg] Li nkLogic blood pressure, systolic 122 mm[Hg] Kirsten kLogic blood pressure, cuff size large Ke rri Trineshaylaeld blood pressure, diastolic 74 mm[Hg] Ke rri [facility] blood pressure, systolic 122 mm[Hg] Kristy ri Linda oxygen saturation, oximetry 90 % Annemarie Hongeduardo respiratory rate E&M 18 /min Annemarie Babb [facility] pulse rate 74 /min Annemarie Lombardi [facility] weight E&M 320 [lb_av] Annemarie Lombardi [facility] height E&M 67 [in_i] Annemarie Brennondrake [facility] Body Mass Index (Ratio) 51.05 kg/m2 [place] blood pressure, diastolic 90 mm[Hg] Rh new Amara blood pressure, systolic 130 mm[Hg] Rho elza Maloney oxygen saturation, oximetry 91 % Marium Maloney pulse rate 97 /min Marium Maloney respiratory rate E&M 18 /min Marium Maloney blood pressure, resting No Rhon tena Maloney blood pressure, cuff size regular new Amara weight E&M 326 [lb_av] Marium Maloney height E&M 67 [in_i] Marium Maloney Body Mass Index (Ratio) 50.99 kg/m2 [place] blood pressure, diastolic 70 mm[Hg] Mimi Will blood pressure, systolic 142 mm[Hg] Zora Will oxygen saturation, oximetry 90 % Antione Will respiratory rate E&M 16 /min Kasandra Will pulse rate 97 /min Antione bejarano weight E&M 325.6 [lb_av] Antione davison height E&M 67 [in_i] Antione bejarano Body Mass Index (Ratio) 50.74 kg/m2 Taaleena Chase Inhaled O2 1 L/min Edyta All blood pressure, resting No Milton ty All blood pressure, cuff size regular Kr isvolodymyr All blood pressure, diastolic 90 mm[Hg] Kr isty All blood pressure, systolic 140 mm[Hg] Kri stdaija [place] pulse rate 121 /min Edyta [place] oxygen saturation, oximetry 95 % Edyta All respiratory rate E&M 20 /min Edyta All weight E&M 324 [lb_av] Edyta [place] height E&M 67 [in_i] Edyta All Body Mass Index (Ratio) 51.84 kg/m2 Denn is Coffey DO blood pressure, diastolic 88 mm[Hg] Fe katiana Garcia blood pressure, systolic 150 mm[Hg] Fel icia Garcia oxygen saturation, oximetry 95 % Bianka Garcia respiratory rate E&M 20 /min Bianka Garcia pulse rate 131 /min Bianka Garcia temperature E&M 97.5 [degF] Bianka Garcia weight E&M 331 [lb_av] Bianka Garcia height E&M 67 [in_i] Bianka Garcia Body Mass Index (Ratio) 50.58 kg/m2 Denn is Coffey DO blood pressure, diastolic 87 mm[Hg] Fe katiana Garcia blood pressure, systolic 137 mm[Hg] Fel icia Garcia respiratory rate E&M 18 /min Bianka Garcia pulse rate 122 /min Bianka Garcia blood pressure, resting No Alexandria Garcia oxygen saturation, oximetry 94 % Bianka Garcia weight E&M 323 [lb_av] Bianka Garcia height E&M 67 [in_i] Bianka Garcia ALLERGIES Allergy Name Onset Date Reaction Criticality Status VENLAFAXINE High Criticality active LEVOFLOXACIN High Criticality active LEVALBUTEROL High Criticality active CLARITHROMYCIN High Criticality acti ve CEFPROZIL High Criticality active AZITHROMYCIN High Criticality active XOPENEX Low Criticality active CEFTIN Low Criticality active ZITHROMAX Low Criticality active LEVAQUIN High Criticality active LATEX High Criticality active RESULTS Date Observation Value Provider Reference Range Interpretation Location prothrombin time (patient) 11.0 s LinkLog 9.0-11.5 Normal international normalized ratio (INR) 1.0 LinkLog Normal calcium, serum 9.0 mg/dL LinkLogic 8.6-10.4 Normal carbon dioxide, venous blood 33 mmol/L LinkLogic 20-32 High chloride, serum 101 mmol/L LinkLogic 98-110 Normal potassium, serum 4.2 mmol/L LinkLogic 3.5-5.3 Normal sodium, serum 141 mmol/L LinkLogic 135-146 Normal urea nitrogen/creatinine ratio, serum SEE NOTE: (calc) LinkLogic 6-22 creatinine, serum 0.72 mg/dL LinkLogic 0.60-1.00 Normal urea nitrogen, blood 13 mg/dL LinkLogic 7-25 Normal blood glucose, random 98 mg/dL LinkLogic 65-99 Normal magnesium, serum 2.3 mg/dL LinkLogic 1.5-2.5 Normal alanine aminotransferase (SGPT), serum 11 1/L LinkLogic 6-29 Normal aspartate aminotransferase (SGOT), serum 17 1/L LinkLogic 10-35 Normal alkaline phosphatase, serum 85 1/L LinkLogic 37-153 Normal bilirubin, serum, total 0.4 mg/dL LinkLogic 0.2-1.2 Normal albumin/globulin ratio, serum 1.6 (calc) LinkLogic 1.0-2.5 Normal globulins, serum, total 2.6 G/DL (CALC) LinkLogic 1.9-3.7 Normal albumin, serum 4.2 g/dL LinkLogic 3.6-5.1 Normal protein, total, serum 6.8 g/dL LinkLogic 6.1-8.1 Normal calcium, serum 9.1 mg/dL LinkLogic 8.6-10.4 Normal carbon dioxide, venous blood 33 mmol/L LinkLogic 20-32 High chloride, serum 104 mmol/L LinkLogic 98-110 Normal potassium, serum 4.1 mmol/L LinkLogic 3.5-5.3 Normal sodium, serum 142 mmol/L LinkLogic 135-146 Normal urea nitrogen/creatinine ratio, serum SEE NOTE: (calc) LinkLogic 6-22 creatinine, serum 0.80 mg/dL LinkLogic 0.50-1.05 Normal urea nitrogen, blood 12 mg/dL LinkLogic 7-25 Normal blood glucose, random 128 mg/dL LinkLogic 65-99 High magnesium, serum 2.3 mg/dL LinkLogic 1.5-2.5 Normal Estimated Glomerular Filtration Rate (calc) 88 mL/min/{1.73 _m2} LinkLogic C, [place] [address] aspartate aminotransferase (SGOT), serum 26 1/L LinkLogic 10-45 Normal C, [place] [address] alanine aminotransferase (SGPT), serum 16 1/L LinkLogic 7-45 Normal C, [place] [address] Alkaline phosphatase 103 LinkLogic 40-130 Normal C, [place] [address] albumin, serum 4.3 g/dL LinkLogic 3.5-5.0 Normal C, [place] [address] protein, total, serum 7.6 g/dL LinkLogic 6.5-8.5 Normal C, [place] [address] bilirubin, serum, total 0.4 mg/dL LinkLogic 0.1-1.2 Normal C, [place] [address] calcium, serum 9.7 mg/dL LinkLogic 8.5-10.3 Normal C, [place] [address] blood glucose, random 94 mg/dL LinkLogic 70-199 Normal C, [place] [address] creatine, serum 0.74 mg/dL LinkLogic 0.60-1.10 Normal C, [place] [address] urea nitrogen, blood 13 mg/dL LinkLogic 8-25 Normal C, [place] [address] anion gap, serum 9 mmol/L LinkLogic 2-15 Normal C, [place] [address] carbon dioxide, venous blood 31 mmol/L LinkLogic 22-32 Normal C, [place] [address] chloride, serum 104 mmol/L LinkLogic 97-110 Normal C, [place] [address] potassium, serum 4.7 MMOL/L LinkLogic 3.3-4.9 Normal C, [place] [address] sodium, serum 144 mmol/L LinkLogic 135-145 Normal C, [place] [address] activated partial thromboplastin time (aPTT) 33 s LinkLogic 27-37 Normal C, [place] [address] international normalized ratio (INR) 1.2 LinkLogic 0.9-1.2 Normal C, [place] [address] prothrombin time (patient) 13.1 s LinkLogic 9.2-13.5 Normal C, [place] [address] Absolute Basophils 0.0 K/CUMM LinkLogic 0.0-0.1 Normal C, [place] [address] Absolute Monocytes 0.5 K/CUMM LinkLogic 0.2-0.8 Normal C, [place] [address] Absolute Lymphocytes 1.4 K/CUMM LinkLogic 0.8-3.3 Normal , [place] [address] Absolute Neutrophils 4.2 K/CUMM LinkLogic 1.7-6.5 Normal C, [place] [address] nucleated red blood cells as percent of blood leukocytes 0.00 K/CUMM LinkLogic 0.00-0.01 Normal red blood cell distribution width, size density 49.5 fL LinkLogic 35.7-48.1 High mean corpuscular hemoglobin concentration, RBC 30.2 G/DL LinkLogic 32.3-35.7 Low mean corpuscular hemoglobin, RBC 28.7 pg LinkLogic 27.1-33.3 Normal mean corpuscular volume, RBC 94.9 fL LinkLogic 81.3-96.4 Normal erythrocyte count, whole blood 4.67 M/CUMM LinkLogic 3.90-5.20 Normal mean platelet volume 10.2 fL LinkLogic 9.1-12.3 Normal platelet count 226 10*3/uL LinkLogic 150-400 Normal hematocrit, blood 44.3 % LinkLogic 35.6-45.5 Normal hemoglobin, blood 13.4 g/dL LinkLogic 11.9-15.5 Normal hemoglobin A1C, blood, as % of total hemoglobin 5.5 % OF TOTAL HGB LinkLogic <5.7 Normal basophils as percent of blood leukocytes 0.3 % LinkLogic Normal eosinophils as percent of blood leukocytes 2.3 % LinkLogic Normal monocyte count, blood 7.8 % LinkLogic Normal lymphocyte count, blood 30.3 % LinkLogic Normal neutrophils as percent of blood leukocytes 59.3 % LinkLogic Normal basophils, absolute, manual 22 cells/mcL LinkLogic 0-200 Normal eosinophils, absolute, manual 170 cells/mcL LinkLogic 15-500 Normal monocytes, absolute, manual 577 cells/mcL LinkLogic 200-950 Normal lymphocytes, absolute 2242 CELLS/UL LinkLogic 850-3900 Normal Absolute Neutrophil count 4388 cells/mcL LinkLogic 0792-4869 Normal mean platelet volume 10.7 fL LinkLogic 7.5-12.5 Normal platelet count 228 THOUSAND/UL LinkLogic 140-400 Normal red blood cell distribution width 13.0 % LinkLogic 11.0-15.0 Normal mean corpuscular hemoglobin concentration, RBC 31.7 G/DL LinkLogic 32.0-36.0 Low mean corpuscular hemoglobin, RBC 28.6 pg LinkLogic 27.0-33.0 Normal mean corpuscular volume, RBC 90.1 fL LinkLogic 80.0-100.0 Normal hematocrit, blood 41.9 % LinkLogic 35.0-45.0 Normal hemoglobin electrophoresis, blood 13.3 LinkLogic 11.7-15.5 Normal erythrocyte (RBC) count 4.65 MILLION/UL LinkLogic 3.80-5.10 Normal leukocyte (white blood cells) count, blood 7.4 THOUSAND/UL LinkLogic 3.8-10.8 Normal NT-pro BNP 299 LinkLogic Normal alanine aminotransferase (SGPT), serum 11 1/L LinkLogic 6-29 Normal aspartate aminotransferase (SGOT), serum 13 1/L LinkLogic 10-35 Normal alkaline phosphatase, serum 90 1/L LinkLogic 37-153 Normal bilirubin, serum, total 0.4 mg/dL LinkLogic 0.2-1.2 Normal albumin/globulin ratio, serum 1.6 (calc) LinkLogic 1.0-2.5 Normal globulins, serum, total 2.6 G/DL (CALC) LinkLogic 1.9-3.7 Normal albumin, serum 4.2 g/dL LinkLogic 3.6-5.1 Normal protein, total, serum 6.8 g/dL LinkLogic 6.1-8.1 Normal calcium, serum 8.8 mg/dL LinkLogic 8.6-10.4 Normal carbon dioxide, venous blood 32 mmol/L LinkLogic 20-32 Normal chloride, serum 104 mmol/L LinkLogic 98-110 Normal potassium, serum 4.6 mmol/L LinkLogic 3.5-5.3 Normal sodium, serum 142 mmol/L LinkLogic 135-146 Normal urea nitrogen/creatinine ratio, serum NOT APPLICABLE (calc) LinkLogic 6-22 creatinine, serum 0.85 mg/dL LinkLogic 0.50-1.05 Normal urea nitrogen, blood 11 mg/dL LinkLogic 7-25 Normal blood glucose, random 99 mg/dL LinkLogic 65-99 Normal magnesium, serum 2.6 mg/dL LinkLogic 1.5-2.5 High cholesterol, non-HDL, total 116 MG/DL (CALC) LinkLogic <130 Normal cholesterol/HDL ratio, serum, percent 2.9 (calc) LinkLogic <5.0 Normal LDL cholesterol, serum 93 MG/DL (CALC) LinkLogic Normal triglyceride, serum, fasting 124 mg/dL LinkLogic <150 Normal HDL cholesterol, serum 60 mg/dL LinkLogic > OR = 50 Normal cholesterol, serum 176 mg/dL LinkLogic <200 Normal prothrombin time (patient) 10.7 s LinkLogic 9.0-11.5 Normal international normalized ratio (INR) 1.0 LinkLogic Normal basophils as percent of blood leukocytes 0.4 % LinkLogic Normal eosinophils as percent of blood leukocytes 1.6 % LinkLogic Normal monocyte count, blood 10.2 % LinkLogic Normal lymphocyte count, blood 20.2 % LinkLogic Normal neutrophils as percent of blood leukocytes 67.6 % LinkLogic Normal basophils, absolute, manual 36 cells/mcL LinkLogic 0-200 Normal eosinophils, absolute, manual 144 cells/mcL LinkLogic 15-500 Normal monocytes, absolute, manual 918 cells/mcL LinkLogic 200-950 Normal lymphocytes, absolute 1818 CELLS/UL LinkLogic 850-3900 Normal Absolute Neutrophil count 6084 cells/mcL LinkLogic 2588-6900 Normal mean platelet volume 10.5 fL LinkLogic 7.5-12.5 Normal platelet count 224 THOUSAND/UL LinkLogic 140-400 Normal red blood cell distribution width 13.0 % LinkLogic 11.0-15.0 Normal mean corpuscular hemoglobin concentration, RBC 32.6 G/DL LinkLogic 32.0-36.0 Normal mean corpuscular hemoglobin, RBC 30.8 pg LinkLogic 27.0-33.0 Normal mean corpuscular volume, RBC 94.3 fL LinkLogic 80.0-100.0 Normal hematocrit, blood 42.9 % LinkLogic 35.0-45.0 Normal hemoglobin electrophoresis, blood 14.0 LinkLogic 11.7-15.5 Normal erythrocyte (RBC) count 4.55 MILLION/UL LinkLogic 3.80-5.10 Normal leukocyte (white blood cells) count, blood 9.0 THOUSAND/UL LinkLogic 3.8-10.8 Normal hyaline casts, urine NONE SEEN LinkLogic NONE SEEN Normal bacteria, urine microscopy NONE SEEN LinkLogic NONE SEEN Normal epithelial cells, urine 0-5 LinkLogic < OR = 5 RBC urine by microscopy NONE SEEN LinkLogic < OR = 2 Normal WBC urine on microscopy NONE SEEN /HPF LinkLogic < OR = 5 Normal protein, urine, semiquantitative (dipstick) TRACE LinkLogic NEGATIVE Abnormal blood in urine (hemoglobin) by dipstick NEGATIVE LinkLogic NEGATIVE Normal ketones, urine, by test strip NEGATIVE LinkLogic NEGATIVE Normal bilirubin, urine NEGATIVE LinkLogic NEGATIVE Normal glucose, urine, semiquantitative NEGATIVE LinkLogic NEGATIVE Normal pH, urine, semiquantitative 7.0 LinkLogic 5.0-8.0 Normal specific gravity, urine 1.012 LinkLogic 1.001-1.035 Normal appearance, urine CLEAR LinkLogic CLEAR Normal urine color YELLOW LinkLogic YELLOW Normal alanine aminotransferase (SGPT), serum 18 1/L LinkLogic 6-29 Normal aspartate aminotransferase (SGOT), serum 22 1/L LinkLogic 10-35 Normal alkaline phosphatase, serum 100 1/L LinkLogic 37-153 Normal bilirubin, serum, total 0.8 mg/dL LinkLogic 0.2-1.2 Normal albumin/globulin ratio, serum 1.3 (calc) LinkLogic 1.0-2.5 Normal globulins, serum, total 3.2 G/DL (CALC) LinkLogic 1.9-3.7 Normal albumin, serum 4.3 g/dL LinkLogic 3.6-5.1 Normal protein, total, serum 7.5 g/dL LinkLogic 6.1-8.1 Normal calcium, serum 9.6 mg/dL LinkLogic 8.6-10.4 Normal carbon dioxide, venous blood 29 mmol/L LinkLogic 20-32 Normal chloride, serum 99 mmol/L LinkLogic 98-110 Normal potassium, serum 4.4 mmol/L LinkLogic 3.5-5.3 Normal sodium, serum 140 mmol/L LinkLogic 135-146 Normal urea nitrogen/creatinine ratio, serum NOT APPLICABLE (calc) LinkLogic 6-22 Estimated Glomerular Filtration Rate (calc) 71 mL/min/{1.73 _m2} LinkLogic > OR = 60 Normal creatinine, serum 0.97 mg/dL LinkLogic 0.50-0.99 Normal urea nitrogen, blood 15 mg/dL LinkLogic 7-25 Normal 2021/05 /04 blood glucose, random 119 mg/dL LinkLogic 65-99 High HISTORY OF MEDICATION USE Medication Status Instructions Dates Provider Indications [facility] dofetilide 500 mcg capsule active Take 1 capsule by mouth twice daily Lisa Go RN diltiazem HCl 120 mg tablet active TAKE 1 TABLET BY MOUTH THREE TIMES DAILY Denia Neely ezetimibe 10 mg tablet active Take 1 tablet by mouth once daily Inessa Rushing Eliquis 5 mg tablet active Take 1 tablet by mouth twice a day Annemarie Guzman ezetimibe 10 mg tablet completed Take 1 tablet by mouth once a day - Inessa Rushing diltiazem HCl 120 mg tablet completed Take 1 tablet by mouth three times a day - [facility]ist Cartia XT 300 mg capsule,extende d release 24hr completed Take 1 capsule by mouth twice a day - Sindy Hatch MD #30, 30 days supply, Prescribed by JENNIFER CHACON, Filled 11/03/2019 magnesium oxide 400 mg (241.3 mg magnesium) tablet active Take 1 tablet by mouth three times a day Daisy Stewart NP Tikosyn 500 mcg capsule completed Take 1 capsule by mouth twice a day - Lisa Go RN Eliquis 5 mg tablet completed Take 1 tablet by mouth twice daily - Annemarie Guzman dicyclomine 20 mg tablet active as needed Daisy Stewart NP Eliquis 5 mg tablet completed Take 1 tablet by mouth twice a day - Annemarie Guzman albuterol sulfate 90 mcg/actuation HFA aerosol inhaler active Daisy Stewart NP magnesium oxide 400 mg (241.3 mg magnesium) tablet completed Take 2 tablets by mouth twice daily - Yamile Benites Eliquis 5 mg tablet completed Take 1 tablet by mouth twice a day TAKE 1 TABLET TWICE A DAY - Eva Landrum NP OXYCODONE-ACETA MINOPHEN 5-325 MG ORAL TABLET completed one tablet each 6 hours PRN for pain - Annemarie Guzman CLINDAMYCIN HCL 300 MG ORAL CAPSULE completed one tablet three times a day for 10 days - Annemarie Guzman OXYCODONE-ACETA MINOPHEN 5-325 MG ORAL TABLET completed one tablet each each 6 hours PRN moderate pain - Annemarie Guzman CLEOCIN 300 MG ORAL CAPSULE completed one tablet PO tid for ten days - Annemarie Guzman magnesium oxide 400 mg (241.3 mg magnesium) tablet completed Take 2 tablet by mouth twice a day - Tia Arian flecainide 150 mg tablet completed INCREASE flecainide to 150mg one tab twice daily. julianna kebede , stop amiodarone - Rao Chase omeprazole 20 mg tablet,delayed release (DR/EC) active Take 1 tablet by mouth once a day Edyta Carrizales hydrocodone-ena taminophen 10-325 mg tablet active Take 1 tablet by mouth every six hours as needed Edyta Carrizales #120, 30 days supply, Prescribed by EJNNIFER SCALES, Filled 08/22/2020 FASENRA 30 MG/ML SUBCUTANEOUS SOLUTION PREFILLED SYRINGE completed - Antione Will #1, 28 days supply, Filled 02/28/2019 ALBUTEROL SULFATE (2.5 MG/3ML) 0.083% INHALATION NEBULIZATION SOLUTION completed USE 1 VIAL IN NEBULIZER EVERY 4 HOURS - Annemarie Guzman #375, 21 days supply, Prescribed by CRUZ BROOKE, Filled 08/01/2019 clonazepam 0.5 mg tablet completed Take 1 tablet by mouth every night - Daisy Stewart INJURY PREVENTION COORDINATOR #30, 30 days supply, Prescribed by FRANKLYN AGUILA, Filled 10/25/2019 Cartia XT 300 mg capsule,extende d release 24hr completed Take 1 capsule by mouth once a day - Daisy Stewart INJURY PREVENTION COORDINATOR #30, 30 days supply, Prescribed by JENNIFER CHACON, Filled 11/03/2019 pravastatin 40 mg tablet active Take 1 tablet by mouth every night Bianka Fox #90, 90 days supply, Prescribed by FRANKLYN AGUILA, Filled 11/12/2019 paroxetine HCl 40 mg tablet active Take 1 tablet by mouth once a day Bianka Garcia #90, 90 days supply, Prescribed by FRANKLYN AGUILA, Filled 11/12/2019 fluticasone propionate 50 mcg/actuation spray,suspensio n completed Use 2 spray into both nostrils once a day - Daisy Stewart INJURY PREVENTION COORDINATOR #48, 90 days supply, Prescribed by FRANKLYN AGUILA, Filled 12/08/2019 Spiriva with HandiHaler 18 mcg capsule, w/inhalation device completed Inhale 1 puff by mouth once a day - Daisy Stewart INJURY PREVENTION COORDINATOR #30, 30 days supply, Prescribed by CRUZ BROOKE, Filled 01/12/2020 Eliquis 5 mg tablet completed Take 1 tablet by mouth twice a day - Bianka Garcia #60, 30 days supply, Prescribed by EVARISTO CARO, Filled 01/12/2020 AMIODARONE HCL 200 MG ORAL TABLET completed TAKE 1 TABLET BY MOUTH TWICE DAILY - Sindy Hatch MD #60, 30 days supply, Prescribed by EVARISTO CARO, Filled 01/18/2020 Breo Ellipta 200-25 mcg/dose blister with device completed Inhale 1 puff by mouth once a day - Daisy Stewart INJURY PREVENTION COORDINATOR #60, 30 days supply, Prescribed by LIYAH PEREZ, Filled 01/22/2020 zolpidem 10 mg tablet active 1 tablet by mouth every night Bianka Garcia #30, 30 days supply, Filled 01/25/2020 DILT-XR 180 MG ORAL CAPSULE EXTENDED RELEASE 24 HOUR completed 1 tab daily - Brody Kemp DO #30, 30 days supply, Filled 01/25/2020 SOCIAL HISTORY Date Observation Value Provider smoking status Never smoker Daisy olson INJURY PREVENTION COORDINATOR Exercise counseling Yes Daisy Stewart NP smoking status Never smoker James Hodgson social history reviewed E&M revi ewed - no changes required James Hodgson social history E&M S moking History: Kerri kohler has never smoked. James Hodgson social history reviewed E&M revi ewed - no changes required James Hodgson smoking status Never smoker Annemarie valentin social history reviewed E&M revi ewed - no changes required Mo Rivera NP social history E&M Smoking Histo ry: Kerri kohler has never smoked. Mo Rivera NP smoking status Never smoker Vaishali Kyle and social history E&M S moking History: Kerri kohler has never smoked. Derick Mendoza social history reviewed E&M revi ewed - no changes required Derick Mendoza smoking status Never smoker Kim Kulkarni social history reviewed E&M revi ewed - no changes required Sindy Hatch MD smoking status Never smoker Vaishali Kyle and smoking status Never smoker Annemarie valentin smoking status Never smoker Annemarie valentin number of grandchildren Sindy Hodgson social history E&M S moking History: Kerri kohler has never smoked. James Hodgson social history reviewed E&M revi ewed - no changes required James Hodgson smoking status Never smoker Annemarie valentin social history E&M S moking History: P jose f has never smoked. Rao Chase social history reviewed E&M revi ewed - no changes required Rao Chase smoking status Never smoker Marium Maloney social history E&M S moking History: P jose f has never smoked. Rao Chase social history reviewed E&M revi ewed - no changes required Rao Chase smoking status Never smoker Antione Trevino smoking status Never smoker Edyta Vailby smoking status Never smoker Bianka Garcia smoking status Never smoker Brody bliss DO social history E&M S moking History: P jose f has never smoked. Brody Kemp DO social history reviewed E&M revi ewed - no changes required Brody Kemp DO number of grandchildren Brody Emery O Brody Kemp DO INSURANCE PROVIDERS Payer name Policy type / Coverage type [place] [employer] PPO O [id number] ADVANCE DIRECTIVES Name Date DISCUSSED - NO DECISION MADE TREATMENT PLAN Date Name Performer [id number],B, B P today: 122/82 P rior BP: 150/96 (09/15/2022) Labs Reviewed: C reat: 0.80 (02/04/2023) C hol: 176 (07/05/2022) HDL: 60 (07/05/2022) LDL: 93 MG/DL (CALC) (07/05/2022) T (07/05/2022) Her updated medication list for this problem includes: Diltiazem Hcl 120 Mg Tablet (Diltiazem hcl) ..... Take 1 tablet by mouth three times a day James Hodgson [id number],SJames [id number],S, H er updated medication list for this problem includes: Ezetimibe 10 Mg Tablet (Ezetimibe) ..... Take 1 tablet by mouth once a day Pravastatin 40 Mg Tablet (Pravastatin) ..... Take 1 tablet by mouth every night James Hodgson [id number],C, c onverted to SR on her own, remains in underlying sinus rhythm today c ontinue diltiazem and tikosyn James Hodgson [id number],S, H er updated medication list for this problem includes: Diltiazem Hcl 120 Mg Tablet (Diltiazem hcl) ..... Take 1 tablet by mouth three times a day James Hodgson [id number],C, w ill repeat carotids Sindy Hatch MD [id number],C, T he patient is using CPAP on a regular basis. The patient has been benefiting from therapy and should continue use. Sindy Hatch MD [id number],C, B P today: 150/96 P rior BP: 145/106 (08/06/2022) Her updated medication list for this problem includes: Diltiazem Hcl 120 Mg Tablet (Diltiazem hcl) ..... Take 1 tablet by mouth three times a day Sindy Hatch MD [id number],C, c onverted to SR on her own, remains in underlying sinus rhythm today c ontinue diltiazem and tikosyn Sindy Hatch MD [id number],C, c onverted to SR on her own, remains in underlying sinus rhythm today c ontinue diltiazem and tikosyn James Hodgson [id number],C, T he patient is using CPAP on a regular basis. The patient has been benefiting from therapy and should continue use. James Hodgson [id number],C, B P today: 150/96 P rior BP: 145/106 (08/06/2022) Her updated medication list for this problem includes: Diltiazem Hcl 120 Mg Tablet (Diltiazem hcl) ..... Take 1 tablet by mouth three times a day James Hodgson [id number],W,L DL in 90s t arget <70 s tart zedestini w ill not increase pravastatin because patient has baseline joint pain due to arthritis James Hodgson [id number],C, H er updated medication list for this problem includes: Albuterol Sulfate 90 Mcg/actuation Hfa Aerosol Inhaler (Albuterol sulfate) Mo Duboselouise SNEED [id number],C, T he patient is using CPAP on a regular basis. The patient has been benefiting from therapy and should continue use. Mo Pedormacrina SNEED [id number],C,B P elevated in office today. Pt states her BP is within normal at home. Her updated medication list for this problem includes: Cartia Xt 300 Mg Capsule,extended Release 24hr (Diltiazem hcl) ..... Take 1 capsule by mouth twice a day BP today: 145/106 P rior BP: 140/98 (07/28/2022) Labs Reviewed: C reat: 0.85 (07/05/2022) C hol: 176 (07/05/2022) HDL: 60 (07/05/2022) LDL: 93 MG/DL (CALC) (07/05/2022) T (07/05/2022) Mo Pedromacrina SNEED [id number],C,E KG in office today shows Afib. On 07/12 pt had RIGOBERTO/CV x2 with 200 J--> SR. Will plan for cardioversion 08/17/22 Her updated medication list for this problem includes: Tikosyn 500 Mcg Capsule (Dofetilide) ..... Take 1 capsule by mouth twice a day Mo Pedromacrina SNEED [id number],C,P t was admitted to [facility] for tikosyn loading, 07/09-07/12/22. On 07/12 pt had RIGOBERTO/CV x2 with 200 J--> SR. Pt was to unable to make follow up appointment last week. since discharge pt reports that has been feeling overall feeling well. She denies any CP, SOB, dizziness, palpitaitons, orthopnea, PND or syncope. Pt has had increaed BLE edema. Pt had cortisone injections to bilateral knees yesterday. EKG today appears afib. last remote check 07/24 AF burden 83%, pacing RA 16%, RV 58%. will increase diltiazem CD 300mg BID. continue magnesium oxide 800mg BID. will follow up next tuesday. If remains in AFIB, will plan repeat CV. Daisy Stewart NP [id number],C, W eight loss was advised Daisy Stewart NP [id number],C,C HOL: 176 (07/05/2022) LDL: 93 MG/DL (CALC) (07/05/2022) HDL: 60 (07/05/2022) T (07/05/2022) Her updated medication list for this problem includes: Pravastatin 40 Mg Tablet (Pravastatin) ..... Take 1 tablet by mouth every night Daisy Stewart NP [id number],C, B P today: 140/98 P rior BP: 156/-1 (06/30/2022) Labs Reviewed: C reat: 0.85 (07/05/2022) C hol: 176 (07/05/2022) HDL: 60 (07/05/2022) LDL: 93 MG/DL (CALC) (07/05/2022) T (07/05/2022) Her updated medication list for this problem includes: Cartia Xt 300 Mg Capsule,extended Release 24hr (Diltiazem hcl) ..... Take 1 capsule by mouth once a day Daisy Stewart NP [id number],C,T he patient is using CPAP on a regular basis. The patient has been benefiting from therapy and should continue use. Orders: C OMPREHENSIVE METABOLIC PANEL, W/EGFR (86921) C BC (INCLUDES DIFF/PLT) (6399) P ROBNP, N TERMINAL (58994) M AGNESIUM (622) L IPID PANEL (9502) H EMOGLOBIN A1c (496) 9 9215 HIGH 40-54min (CPT-91320) Derick Mendoza [id number],W,E KG today shows AFIB which explains her increased SOB and and HR elevation. I discussed with her about undergoing Tikosyn treatment with EKG monitoring. If she continues to be in AFIB we will proceed with Cardioversion to convert her to sinus rhythm. Discussed risks and benefits, she expressed understanding and was agreeble. Derick Wernerduran [id number],S, B P today: 156/85 P rior BP: 152/86 (04/27/2022) Labs Reviewed: C reat: 0.97 (09/16/2020) Derick Wernerduran [id number],W,S OB is slightly worse, EKG shows AFIB, will proceed with Cardioversion Derick Wernerduran [id number],C,Weight loss w as advised Derick Mendoza [id number],C,d ue to have annual labs with PCP next week. will have labs results sent to our office. H er updated medication list for this problem includes: Pravastatin 40 Mg Tablet (Pravastatin) ..... Take 1 tablet by mouth every night Sindy Hatch MD [id number],C,on bipap at n ight. Sindy Hatch MD [id number],S,i nterrogation today AT/AF 1% 2 AF event longest 10:34hrs fastest 102bpm t urned on CLS on. appropriate function explained that if AT/AF burden would reach 5%, would consider adding an antiarrhythmic, ie Tikosyn. Sindy Hatch MD [id number],C, B P today: 152/86 P rior BP: 154/88 (01/13/2022) Labs Reviewed: C reat: 0.97 (09/16/2020) Her updated medication list for this problem includes: Cartia Xt 300 Mg Capsule,extended Release 24hr (Diltiazem hcl) ..... Take 1 capsule by mouth once a day Sindy Hatch MD [id number],C,a t baseline. ECHO: 01/2022 C ONCLUSIONS: 1 . Normal left ventricular systolic function. Normal left ventricular size. There is septal hypertrophy without outflow tract o bstruction. Normal left ventricular diastolic function. E/E': 10.3 Left ventricular ejection fraction is measured at 65 %. 2 . Mild mitral annular calcification. There is non-specific thickening of the mitral valve leaflets. Mild mitral valve r egurgitation. 3 . Normal appearing tricuspid valve leaflets. There is mild tricuspid regurgitation. IVC is normal in size with normal r espiratory response. Estimated peak pulmonary artery systolic pressure is 32.0 mmHg. H er updated medication list for this problem includes: Cartia Xt 300 Mg Capsule,extended Release 24hr (Diltiazem hcl) ..... Take 1 capsule by mouth once a day Sindy Hatch MD [id number],C,on bipap at n ight. Daisy Stewart NP [id number],C,d ue to have annual labs with PCP next week. will have labs results sent to our office. Daisy Stewart NP [id number],C,i nterrogation today AT/AF 1% 2 AF event longest 10:34hrs fastest 102bpm t urned on CLS on. appropriate function explained that if AT/AF burden would reach 5%, would consider adding an antiarrhythmic, ie Tikosyn. Daisy Stewart NP [id number],C, B P today: 152/86 P rior BP: 154/88 (01/13/2022) Labs Reviewed: C reat: 0.97 (09/16/2020) Her updated medication list for this problem includes: Cartia Xt 300 Mg Capsule,extended Release 24hr (Diltiazem hcl) ..... Take 1 capsule by mouth once a day Daisy Stewart NP [id number],Ctrent t baseline. ECHO: 01/2022 C ONCLUSIONS: 1 . Normal left ventricular systolic function. Normal left ventricular size. There is septal hypertrophy without outflow tract o bstruction. Normal left ventricular diastolic function. E/E': 10.3 Left ventricular ejection fraction is measured at 65 %. 2 . Mild mitral annular calcification. There is non-specific thickening of the mitral valve leaflets. Mild mitral valve r egurgitation. 3 . Normal appearing tricuspid valve leaflets. There is mild tricuspid regurgitation. IVC is normal in size with normal r espiratory response. Estimated peak pulmonary artery systolic pressure is 32.0 mmHg. Daisy Stewart NP [id number],C, Sindy love MD [id number],C, Sindy love MD [id number],C,compliant wit h cpap Sindy Hatch MD [id number],W, B P today: 154/88 P rior BP: 122/82 (01/28/2021) Labs Reviewed: Bethany reat: 0.97 (09/16/2020) Her updated medication list for this problem includes: Cartia Xt 300 Mg Capsule,extended Release 24hr (Diltiazem hcl) ..... Take 1 capsule by mouth once a day Sindy Hatch MD [id number],S,c ontinues to be SOB and requiring on o2. following pulmonary . will check VQ scan and Echo. if ECHO demonstrates pulm hypertension will consider verquvo H er updated medication list for this problem includes: Cartia Xt 300 Mg Capsule,extended Release 24hr (Diltiazem hcl) ..... Take 1 capsule by mouth once a day Sindy Hatch MD [id number],C,compliant wit h cpap Daisy Stewart NP [id number],C, B P today: 154/88 P rior BP: 122/82 (01/28/2021) Labs Reviewed: C reat: 0.97 (09/16/2020) Her updated medication list for this problem includes: Cartia Xt 300 Mg Capsule,extended Release 24hr (Diltiazem hcl) ..... Take 1 capsule by mouth once a day Daisy Petersenozzy INJURY PREVENTION COORDINATOR [id number],C,c ontinues to be SOB and requiring on o2. following pulmonary . will check VQ scan and Echo. if ECHO demonstrates pulm hypertension will consider verquvo Daisy Terry INJURY PREVENTION COORDINATOR [id number],C,n o recurrence, if has one WILL do TIKOSYN T he following medications were removed from the medication list: Flecainide 150 Mg Tablet (Flecainide) ..... Increase flecainide to 150mg one tab twice daily. julianna kebede , stop amiodarone Orders: E KG (CPT-28863) 9 9214 MOD 30-39min (CPT-33685) Rao Chase [id number],S, H er updated medication list for this problem includes: Pravastatin Sodium 40 Mg Oral Tablet (Pravastatin sodium) ..... Take 1 tablet by mouth nightly James Hodgson [id number],B, B P today: 122/74 P rior BP: 130/90 (10/01/2020) Her updated medication list for this problem includes: Cartia Xt 300 Mg Oral Capsule Extended Release 24 Hour (Diltiazem hcl coated beads) ..... Take 1 capsule by mouth once daily James Hodgson [id number],B, a trial fibrillation/ flutter failed on amiodarone and multiole cardioversion. S /p successful cardioversion to SR on 10/23/20 for afib. Her updated medication list for this problem includes: Flecainide Acetate 150 Mg Oral Tablet (Flecainide acetate) ..... Increase flecainide to 150mg one tab twice daily. julianna kebede , stop amiodarone Cartia Xt 300 Mg Oral Capsule Extended Release 24 Hour (Diltiazem hcl coated beads) ..... Take 1 capsule by mouth once daily James Woodanita [id number],B, S /p successful cardioversion to SR on 10/23. Holding in SR today. C oninues on flecainide. Will likely need to be loaded on tikosyn in the future. Her updated medication list for this problem includes: Flecainide Acetate 150 Mg Oral Tablet (Flecainide acetate) ..... Increase flecainide to 150mg one tab twice daily. contine cartia , stop amiodarone James Woodanita Electrophysiology:stevens d rectal bleeding 05/16/24. she stopped her eliquis x1 week then resumed, without recurrence of rectal bleeding. pt is scheduled to see GI this tuesday. O rders: E KG (CPT-80411) C omplete Echo (63096) A lesly Duplex Ultrasound (CPT-61169) S chedule Followup (*) C OMPREHENSIVE METABOLIC PANEL, W/EGFR (86053) M AGNESIUM (622) Daisy Stewart NP Electrophysiology:compliant with bipap Daisy Stewart NP Electrophysiology:CH OL: 176 (07/05/2022) LDL: 93 MG/DL (CALC) (07/05/2022) HDL: 60 (07/05/2022) T (07/05/2022) Her updated medication list for this problem includes: Ezetimibe 10 Mg Tablet (Ezetimibe) ..... Take 1 tablet by mouth once daily Pravastatin 40 Mg Tablet (Pravastatin) ..... Take 1 tablet by mouth every night Daisy Stewart NP Electrophysiology:pt had been scheduled for CV, but was cancelled since she was in SR. May benefit from LAAO device if cannot be on the NOAC in the future EKG today, A paced. H er updated medication list for this problem includes: Dofetilide 500 Mcg Capsule (Dofetilide) ..... Take 1 capsule by mouth twice daily Diltiazem 120mg TID mag oxide decreased to 400mg TID eliquis 5mg BID Daisy Stewart INJURY PREVENTION COORDINATOR Electrophysiology: B P today: 135/99 P rior BP: 139/79 (04/04/2024) Labs Reviewed: C reat: 0.72 (04/06/2024) C hol: 176 (07/05/2022) HDL: 60 (07/05/2022) LDL: 93 MG/DL (CALC) (07/05/2022) T (07/05/2022) Her updated medication list for this problem includes: Diltiazem Hcl 120 Mg Tablet (Diltiazem hcl) ..... Take 1 tablet by mouth three times daily Daisy Terry SNEED Electrophysiology:05/16/24 pt had episodes of rectal bleeding. she stopped her eliquis x1 week and then restarted. no recurrence of rectal bleeding. pt is scheduled to see GI on tuesday. O rders: 9 14-Ofc Vst-Est Level IV (CPT-98377) Daisy Stewart NP Electrophysiology:ca rotids: 02/2023 mild <50% will repeat carotids in 6 months Orders: E KG (CPT-81015) C omplete Echo (22869) A lesly Duplex Ultrasound (CPT-20498) S chedule Followup (*) C OMPREHENSIVE METABOLIC PANEL, W/EGFR (71107) M AGNESIUM (622) 9 9214-Ofc Vst-Est Level IV (CPT-76743) Daisy Terry SNEED Electrophysiology:Ex tensive review of the pertinent previous and curent labs , EKGs, cardiac tesing and imaging data was done by Dr. Hatch after the indication s alternativeds risks complications were discueed patient agreed to procedure Her updated medication list for this problem includes: Tikosyn 500 Mcg Capsule (Dofetilide) ..... Take 1 capsule by mouth twice a day & #13;Orders: 9 15 HIGH 40-54min (CPT-07458) C omplex e/m visit add on (G2211) E KG (CPT-00356) B ASIC METABOLIC PANEL W/EGFR (76200) P ROTHROMBIN TIME WITH INR (8847) M AGNESIUM (622) after the indication s alternativeds risks complications were discueed patient agreed to procedure Sindy Hatch MD Electrophysiology: H er updated medication list for this problem includes: Albuterol Sulfate 90 Mcg/actuation Hfa Aerosol Inhaler (Albuterol sulfate) Sindy Hatch MD Electrophysiology: B P today: 139/79 P rior BP: 122/82 (03/02/2023) H er updated medication list for this problem includes: Diltiazem Hcl 120 Mg Tablet (Diltiazem hcl) ..... Take 1 tablet by mouth three times daily Sindy Hatch MD Electrophysiology Sindy felipe MD Electrophysiology Sindy felipe MD Electrophysiology: H er updated medication list for this problem includes: Tikosyn 500 Mcg Capsule (Dofetilide) ..... Take 1 capsule by mouth twice a day Orders: 9 9215 HIGH 40-54min (CPT-27832) C omplex e/m visit add on (G2211) E KG (CPT-60498) Sindy Hatch MD Electrophysiology: B P today: 122/82 P rior BP: 150/96 (09/15/2022) Labs Reviewed: C reat: 0.80 (02/04/2023) C hol: 176 (07/05/2022) HDL: 60 (07/05/2022) LDL: 93 MG/DL (CALC) (07/05/2022) T (07/05/2022) Her updated medication list for this problem includes: Diltiazem Hcl 120 Mg Tablet (Diltiazem hcl) ..... Take 1 tablet by mouth three times a day James Hodgson Electrophysiology James Hodgson Electrophysiology: H er updated medication list for this problem includes: Ezetimibe 10 Mg Tablet (Ezetimibe) ..... Take 1 tablet by mouth once a day Pravastatin 40 Mg Tablet (Pravastatin) ..... Take 1 tablet by mouth every night James Hodgson Electrophysiology: c onverted to SR on her own, remains in underlying sinus rhythm today c ontinue diltiazem and tikosyn James Hodgson Electrophysiology: H er updated medication list for this problem includes: Diltiazem Hcl 120 Mg Tablet (Diltiazem hcl) ..... Take 1 tablet by mouth three times a day James Hodgson Electrophysiology: w ill repeat carotids Sindy Hatch MD Electrophysiology: T he patient is using CPAP on a regular basis. The patient has been benefiting from therapy and should continue use. Sindy Hatch MD Electrophysiology: B P today: 150/96 P rior BP: 145/106 (08/06/2022) Her updated medication list for this problem includes: Diltiazem Hcl 120 Mg Tablet (Diltiazem hcl) ..... Take 1 tablet by mouth three times a day Sindy Hatch MD Electrophysiology: c onverted to SR on her own, remains in underlying sinus rhythm today c ontinue diltiazem and tikosyn Sindy Hatch MD Electrophysiology: c onverted to SR on her own, remains in underlying sinus rhythm today c ontinue diltiazem and tikosyn James Hodgson Electrophysiology: T he patient is using CPAP on a regular basis. The patient has been benefiting from therapy and should continue use. James Hodgson Electrophysiology: B P today: 150/96 P rior BP: 145/106 (08/06/2022) Her updated medication list for this problem includes: Diltiazem Hcl 120 Mg Tablet (Diltiazem hcl) ..... Take 1 tablet by mouth three times a day James Hodgson Electrophysiology:LD L in 90s t arget <70 s tart zetia w ill not increase pravastatin because patient has baseline joint pain due to arthritis James Hodgson Electrophysiology: H er updated medication list for this problem includes: Albuterol Sulfate 90 Mcg/actuation Hfa Aerosol Inhaler (Albuterol sulfate) Mo Rivera NP Electrophysiology: T he patient is using CPAP on a regular basis. The patient has been benefiting from therapy and should continue use. Mo Pedromacrina SNEED Electrophysiology:BP elevated in office today. Pt states her BP is within normal at home. Her updated medication list for this problem includes: Cartia Xt 300 Mg Capsule,extended Release 24hr (Diltiazem hcl) ..... Take 1 capsule by mouth twice a day BP today: 145/106 P rior BP: 140/98 (07/28/2022) Labs Reviewed: C reat: 0.85 (07/05/2022) C hol: 176 (07/05/2022) HDL: 60 (07/05/2022) LDL: 93 MG/DL (CALC) (07/05/2022) T (07/05/2022) Mo Pedromacrina SNEED Electrophysiology:EK G in office today shows Afib. On 07/12 pt had RIGOBERTO/CV x2 with 200 J--> SR. Will plan for cardioversion 08/17/22 Her updated medication list for this problem includes: Tikosyn 500 Mcg Capsule (Dofetilide) ..... Take 1 capsule by mouth twice a day Mo Pedromacrina SNEED Electrophysiology:Pt was admitted to [facility] for tikosyn loading, 07/09-07/12/22. On 07/12 pt had RIGOBERTO/CV x2 with 200 J--> SR. Pt was to unable to make follow up appointment last week. since discharge pt reports that has been feeling overall feeling well. She denies any CP, SOB, dizziness, palpitaitons, orthopnea, PND or syncope. Pt has had increaed BLE edema. Pt had cortisone injections to bilateral knees yesterday. EKG today appears afib. last remote check 07/24 AF burden 83%, pacing RA 16%, RV 58%. will increase diltiazem CD 300mg BID. continue magnesium oxide 800mg BID. will follow up next tuesday. If remains in AFIB, will plan repeat CV. Daisy Stewart NP Electrophysiology: W eight loss was advised Daisy Stewart NP Electrophysiology:CH OL: 176 (07/05/2022) LDL: 93 MG/DL (CALC) (07/05/2022) HDL: 60 (07/05/2022) T (07/05/2022) Her updated medication list for this problem includes: Pravastatin 40 Mg Tablet (Pravastatin) ..... Take 1 tablet by mouth every night Daisy Stewart NP Electrophysiology: B P today: 140/98 P rior BP: 156/-1 (06/30/2022) Labs Reviewed: C reat: 0.85 (07/05/2022) C hol: 176 (07/05/2022) HDL: 60 (07/05/2022) LDL: 93 MG/DL (CALC) (07/05/2022) T (07/05/2022) Her updated medication list for this problem includes: Cartia Xt 300 Mg Capsule,extended Release 24hr (Diltiazem hcl) ..... Take 1 capsule by mouth once a day Daisy Stewart NP Electrophysiology:Th e patient is using CPAP on a regular basis. The patient has been benefiting from therapy and should continue use. Orders: C OMPREHENSIVE METABOLIC PANEL, W/EGFR (77540) C BC (INCLUDES DIFF/PLT) (6399) P ROBNP, N TERMINAL (12213) M AGNESIUM (622) L IPID PANEL (7680) H EMOGLOBIN A1c (496) 9 9215 HIGH 40-54min (CPT-35458) Sindy Hatch MD Electrophysiology:EK G today shows AFIB which explains her increased SOB and and HR elevation. I discussed with her about undergoing Tikosyn treatment with EKG monitoring. If she continues to be in AFIB we will proceed with Cardioversion to convert her to sinus rhythm. Discussed risks and benefits, she expressed understanding and was agreeble. Sindy Hatch MD Electrophysiology: B P today: 156/85 P rior BP: 152/86 (04/27/2022) Labs Reviewed: C reat: 0.97 (09/16/2020) Sindy Hatch MD Electrophysiology:SO B is slightly worse, EKG shows AFIB, will proceed with Cardioversion Sindy Hatch MD Electrophysiology:Weight loss wa s advised Sindy Hatch MD Electrophysiology:ryann sigala to have annual labs with PCP next week. will have labs results sent to our office. H er updated medication list for this problem includes: Pravastatin 40 Mg Tablet (Pravastatin) ..... Take 1 tablet by mouth every night Sindy Hatch MD Electrophysiology:on bipap at [facility]. Sindy Hatch MD Electrophysiology:in terrogation today AT/AF 1% 2 AF event longest 10:34hrs fastest 102bpm t urned on CLS on. appropriate function explained that if AT/AF burden would reach 5%, would consider adding an antiarrhythmic, ie Tikosyn. Sindy Hatch MD Electrophysiology: B P today: 152/86 P rior BP: 154/88 (01/13/2022) Labs Reviewed: C reat: 0.97 (09/16/2020) Her updated medication list for this problem includes: Cartia Xt 300 Mg Capsule,extended Release 24hr (Diltiazem hcl) ..... Take 1 capsule by mouth once a day Sindy Hatch MD Electrophysiology:at baseline. ECHO: 01/2022 C ONCLUSIONS: 1 . Normal left ventricular systolic function. Normal left ventricular size. There is septal hypertrophy without outflow tract obstruction. Normal left ventricular diastolic function. E/E': 10.3 Left ventricular ejection fraction is measured at 65 %. 2 . Mild mitral annular calcification. There is non-specific thickening of the mitral valve leaflets. Mild mitral valve r egurgitation. 3 . Normal appearing tricuspid valve leaflets. There is mild tricuspid regurgitation. IVC is normal in size with normal r espiratory response. Estimated peak pulmonary artery systolic pressure is 32.0 mmHg. H er updated medication list for this problem includes: Cartia Xt 300 Mg Capsule,extended Release 24hr (Diltiazem hcl) ..... Take 1 capsule by mouth once a day Sindy Hatch MD Electrophysiology:on bipap at [facility]. Daisy Stewart NP Electrophysiology:du zakiya to have annual labs with PCP next week. will have labs results sent to our office. Daisy Petersenozzy SNEED Electrophysiology:in terrogation today AT/AF 1% 2 AF event longest 10:34hrs fastest 102bpm t urned on CLS on. appropriate function explained that if AT/AF burden would reach 5%, would consider adding an antiarrhythmic, ie Tikosyn. Daisy Terry SNEED Electrophysiology: B P today: 152/86 P rior BP: 154/88 (01/13/2022) Labs Reviewed: C reat: 0.97 (09/16/2020) Her updated medication list for this problem includes: Cartia Xt 300 Mg Capsule,extended Release 24hr (Diltiazem hcl) ..... Take 1 capsule by mouth once a day Daisy Petersenozzy SNEED Electrophysiology:at baseline. ECHO: 01/2022 C ONCLUSIONS: 1 . Normal left ventricular systolic function. Normal left ventricular size. There is septal hypertrophy without outflow tract obstruction. Normal left ventricular diastolic function. E/E': 10.3 Left ventricular ejection fraction is measured at 65 %. 2 . Mild mitral annular calcification. There is non-specific thickening of the mitral valve leaflets. Mild mitral valve r egurgitation. 3 . Normal appearing tricuspid valve leaflets. There is mild tricuspid regurgitation. IVC is normal in size with normal r espiratory response. Estimated peak pulmonary artery systolic pressure is 32.0 mmHg. Daisy Stewart NP Electrophysiology Sindy felipe MD Electrophysiology Sindy felipe MD Electrophysiology:compliant with cpap Sindy Hatch MD Electrophysiology: B P today: 154/88 P rior BP: 122/82 (01/28/2021) Labs Reviewed: C reat: 0.97 (09/16/2020) Her updated medication list for this problem includes: Cartia Xt 300 Mg Capsule,extended Release 24hr (Diltiazem hcl) ..... Take 1 capsule by mouth once a day Sindy Hatch MD Electrophysiology:co ntinues to be SOB and requiring on o2. following pulmonary . will check VQ scan and Echo. if ECHO demonstrates pulm hypertension will consider verquvo H er updated medication list for this problem includes: Cartia Xt 300 Mg Capsule,extended Release 24hr (Diltiazem hcl) ..... Take 1 capsule by mouth once a day Sindy Hatch MD Electrophysiology:compliant with cpap Daisy Stewart NP Electrophysiology: B P today: 154/88 P rior BP: 122/82 (01/28/2021) Labs Reviewed: C reat: 0.97 (09/16/2020) Her updated medication list for this problem includes: Cartia Xt 300 Mg Capsule,extended Release 24hr (Diltiazem hcl) ..... Take 1 capsule by mouth once a day Daisy Stewart NP Electrophysiology:co ntinues to be SOB and requiring on o2. following pulmonary . will check VQ scan and Echo. if ECHO demonstrates pulm hypertension will consider verquvo Daisy Stewart NP Electrophysiology:no recurrence, if has one WILL do TIKOSYN T he following medications were removed from the medication list: Flecainide 150 Mg Tablet (Flecainide) ..... Increase flecainide to 150mg one tab twice daily. contine cartia , stop amiodarone Orders: E KG (CPT-03976) 9 9214 MOD 30-39min (CPT-00994) Rao Chase Electrophysiology Ho spital Follow up : H er updated medication list for this problem includes: Pravastatin Sodium 40 Mg Oral Tablet (Pravastatin sodium) ..... Take 1 tablet by mouth nightly James Hodgson Electrophysiology Ho spital Follow up : B P today: 122/74 P rior BP: 130/90 (10/01/2020) Her updated medication list for this problem includes: Cartia Xt 300 Mg Oral Capsule Extended Release 24 Hour (Diltiazem hcl coated beads) ..... Take 1 capsule by mouth once daily James Hodgson Electrophysiology [facility] spital Follow up : a trial fibrillation/ flutter failed on amiodarone and multiole cardioversion. S /p successful cardioversion to SR on 10/23/20 for afib. Her updated medication list for this problem includes: Flecainide Acetate 150 Mg Oral Tablet (Flecainide acetate) ..... Increase flecainide to 150mg one tab twice daily. giulianoe yandy , stop amiodarone Cartia Xt 300 Mg Oral Capsule Extended Release 24 Hour (Diltiazem hcl coated beads) ..... Take 1 capsule by mouth once daily James Hodgson Electrophysiology [facility] spital Follow up : S /p successful cardioversion to SR on 10/23. Holding in SR today. C oninues on flecainide. Will likely need to be loaded on tikosyn in the future. & #13;Her updated medication list for this problem includes: Flecainide Acetate 150 Mg Oral Tablet (Flecainide acetate) ..... Increase flecainide to 150mg one tab twice daily. julianna kebede , stop amiodarone James Hodgson Electrophysiology: E KG 09/23 showed atrial flutter QRS 107 ms on flecainide 100 mGPO bid C onfirmed by device check Orders: C jameson - [facility] (CPT-34040) Her updated medication list for this problem includes: Flecainide Acetate 150 Mg Oral Tablet (Flecainide acetate) ..... Increase flecainide to 150mg one tab twice daily. julianna kebede , stop amiodarone I Ncreased magnesium to 800 bid C ontinues on eliquis Rao Chase Electrophysiology: H er updated medication list for this problem includes: Pravastatin Sodium 40 Mg Oral Tablet (Pravastatin sodium) ..... Take 1 tablet by mouth nightly Rao Chase Electrophysiology: B P today: 130/90 P rior BP: 142/70 (09/23/2020) Labs Reviewed: C reat: 0.97 (09/16/2020) Her updated medication list for this problem includes: Cartia Xt 300 Mg Oral Capsule Extended Release 24 Hour (Diltiazem hcl coated beads) ..... One capsule daily Rao Chase Electrophysiology: n ormal device function s utures to be removed in 1 week Orders: G lobal No Charge (CPT-36069) Rao Chase Electrophysiology:in cision site healing well Orders: G lobal No Charge (CPT-62211) CHEST-ROUTINE E xam: Chest two views. H istory: Post device implantation. N o previous studies are available for comparison. A cardiac pacemaker is in position over the left hemithorax with leads in the anticipated right atrium and right ventricle. No isidro consolidation or effusion is seen. No pneumothorax is identified.Impressions: N o isidro consolidation or effusion. E lectronically signed by: Enrique Byrnes on 09/23/2020 16:20:54 Rao Chase Electrophysiology: H er updated medication list for this problem includes: Pacerone 200 Mg Oral Tablet (Amiodarone hcl) ..... Take 1 tablet by mouth twice daily Amiodarone Hcl 200 Mg Oral Tablet (Amiodarone hcl) ..... Take 1 tablet by mouth twice daily Orders: E KG (CPT-14119) 9 9215 HIGH 40-54min (CPT-52633) P acemaker Dual Chamber - [facility] (*) Sindy Hatch MD Electrophysiology:at [facility] fibrillation/ flutter failed on amiodarone and multiole cardioversion. recomend pacemaker followed by synchronized carduiversion. stop amiodarine contine cartia start fleacinide 100 mg PO bid s tart magnesium oxide 400 mg PO bid Her updated medication list for this problem includes: Pacerone 200 Mg Oral Tablet (Amiodarone hcl) ..... Take 1 tablet by mouth twice daily Cartia Xt 300 Mg Oral Capsule Extended Release 24 Hour (Diltiazem hcl coated beads) ..... One capsule daily Amiodarone Hcl 200 Mg Oral Tablet (Amiodarone hcl) ..... Take 1 tablet by mouth twice daily Sindy Hatch MD Electrophysiology: S byron encouraged diet and weight loss. O SA on CPAP Brody Kemp DO Electrophysiology: B P today: 150/88 P rior BP: 137/87 (01/31/2020) Brody Kemp DO Electrophysiology:Fi rst documentation of Afib in 2016. H owever, she reports an episode of severe palps and tachycardia that occurred approximately 40 years ago while at work. S he did not have another episode like this until documentation of afib in 2016. This raises the possibility of coexistant SVT. N ow with persistent AFib. She is unable to tell whether or not she is in afib for the most part; however, she is able to tell when she is having episodes of AFib with RVR with complaints of palps, tachy, SOB, cough, and lightheadedness. S tarted on amiodarone by Dr. Caro 11/2019 an underwent CDVN 12/27/2019 which was unsuccessful. EKG 01/31/2020 shows Afib, rate 107 BPM. T EE 12/2019 showed normal LVEF, moderate LAE, mild MR and TR. I n afib with RVR. HR 130. Tolerating reasonably well. Will plan for CDVN next week. Brody Kemp DO Electrophysiology:St jordan encouraged diet and weight loss. O SA on CPAP Brody Aguilarguillermo NAVARRETE Electrophysiology:Fi rst documentation of Afib in 2016. H owever, she reports an episode of severe palps and tachycardia that occurred approximately 40 years ago while at work. S he did not have another episode like this until documentation of afib in 2016. This raises the possibility of coexistant SVT. N ow with persistent AFib. She is unable to tell whether or not she is in afib for the most part; however, she is able to tell when she is having episodes of AFib with RVR with complaints of palps, tachy, SOB, cough, and lightheadedness. S tarted on amiodarone by Dr. Caro 11/2019 an underwent CDVN 12/27/2019 which was unsuccessful. EKG 01/31/2020 shows Afib, rate 107 BPM. T EE 12/2019 showed normal LVEF, moderate LAE, mild MR and TR. H as not had monitor. Will check 14 day tele to assess rate control and to determine treatment course. SVT may be trigger of AFib. Additionally, strongly encouraged diet and weight loss. We did discuss possibility of ablation. Brody Aguilarcock DO Date Name MAGNESIUM COMPREHENSIVE METABO LIC PANEL, W/EGFR Aorta Duplex Ultraso und Complete Echo MAGNESIUM PROTHROMBIN TIME WIT H INR BASIC METABOLIC PANE L W/EGFR EKG Complete Echo Complete Echo Carotid Duplex Bilat eral MAGNESIUM COMPREHENSIVE METABO LIC PANEL, W/EGFR Cardioversion - [facility] MAGNESIUM PROTHROMBIN TIME WIT H INR Partial Thromboplast in Time, Activated CBC (INCLUDES DIFF/P LT) COMPREHENSIVE METABO LIC PANEL, W/EGFR MAGNESIUM HEMOGLOBIN A1c CBC (INCLUDES DIFF/P LT) LIPID PANEL PROBNP, N TERMINAL COMPREHENSIVE METABO LIC PANEL, W/EGFR HEMOGLOBIN A1c LIPID PANEL MAGNESIUM PROBNP, N TERMINAL CBC (INCLUDES DIFF/P LT) COMPREHENSIVE METABO LIC PANEL, W/EGFR Cardioversion - [facility] Complete Echo NM, Lung Perfusion Complete Echo Aorta Duplex Ultraso und Carotid Duplex Bilat eral Cardioversion - [facility] X-Ray, Chest - Routi ne URINALYSIS, COMPLETE W/REFLEX TO CULTURE COMPREHENSIVE METABO LIC PANEL W/EGFR CBC (INCLUDES DIFF/P LT) PROTHROMBIN TIME WIT H INR URINALYSIS, COMPLETE W/REFLEX TO CULTURE COMPREHENSIVE METABO LIC PANEL W/EGFR CBC (INCLUDES DIFF/P LT) PROTHROMBIN TIME WIT H INR Pacemaker Dual Chamb er - [facility] MAGNESIUM COMPREHENSIVE METABO LIC PANEL, W/EGFR PROTHROMBIN TIME WIT H INR Mobile Cardiac Tele Ambulatory Oximetry HISTORY OF PROCEDURES Procedure Date Procedure Name Provider Procedure Notes S tatus Complex e/m visit add on Sindy Hatch MD completed Schedule Followup Sindy Hatch MD [address] Hatch completed EKG Sindy Hatch MD comp leted Complex e/m visit add on Sindy Hatch MD completed EKG Sindy Hatch MD comp leted EKG Sindy Hatch MD comp leted Schedule Followup Sindy Hatch MD next 08/06 completed EKG Sindy Hatch MD comp leted EKG Sindy Hatch MD comp leted Schedule Followup Sindy Hatch MD [address] Hatch completed EKG Sindy Hatch MD comp leted EKG Sindy Hatch MD comp leted EKG Sindy Hatch MD comp leted EKG Sindy Hatch MD comp leted EKG Sindy Hatch MD comp leted Event Monitor Brody Kemp DO com pleted EKG Brody Kemp DO comple juan manuel
--- OUTSIDE RECORDS SUMMARY | 2024-06-19 17:31 | XMS_ITS ---
Author Organization [facility] Address [address] [place] [address] Care Team Providers Care Derrick Builder Name Role Phone Souleymane Jackson MD Unavailable Lupillo Brownlee MD Unavailable [phone] Yossi Caro MD Unavailable [phone] Avery Lux MD Unavailable [phone] Raf Ovalles MD Unavailable [phone] Sindy Hatch MD Unavailable [phone] Saleem Rod MD Primary Care Provider [phone] Active Problems Problem Noted Date Diagnosed Date A-fib ([facility]) 04/06/2024 Obstructive lung disease (generalized) Assessment & [...] 07/18/2023 Assessment & Plan (07/18/2023 3:23 PM GI TECH): Discussed lifestyle modifications, diet and exercise. Routine blood work ordered/reviewed today. Yearly vision and dental examinations. 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 02/15/2023 Neuralgia, geniculate 12/29/2022 Bilateral chronic [...] time Assessment & Plan (07/18/2023 3:17 PM GI TECH): Wt Readings from Last 3 Encounters: 07/18/23 [...] (07/11/2022): Added automatically from request for surgery [id number] Assessment & Plan (07/18/2023 3:16 PM GI TECH): S/p pacemaker Fopllowing with cardio Continue eliquis 5 mg bid Continue rate control medications C/w cardizem 120 mg tid Assessment & Plan (11/18/2022 2:08 PM CDT): S/p pacemaker Fopllowing with cardio Continue eliquis 5 mg bid Continue rate control medications C/w cardizem 300 mg 24 hr every day, tikosin 500 mg bid Thrush, oral 05/06/2021 Assessment & Plan (05/06/2021 7:39 AM GI TECH): Treat with diflucan weekly x 4. Clotrimazole trochs qid prn. Her inhaler has been changed due to thrush by pulmonology Medicare annual wellness visit, subsequent 05/03 Assessment & Plan (05/06/2021 7:38 AM GI TECH): Patient Counseling: --Nutrition: Stressed importance of moderation [...] (02/09/2021): Added automatically from request for surgery [id number] Intestinal bypass and anastomosis status 021 Overview (02/09/2021): Added automatically from request for surgery [id number] Gastroesophageal reflux disease 02/09/2021 Overview (02/09/2021): Added automatically from request for surgery [id number] Cardiac pacemaker 12/29/2020 Overview (12/29/2020): Wendy Jordan Shortness of breath 11/03/2020 Sick sinus syndrome (CMS/HCC) 09/10/2020 Anemia 01/31/2020 Overview (04/27/2021): (History of) Anxiety 01/31/2020 Overview (04/27/2021): (History of) Encounter for screening for cardiovascular disor ders 01/31/2020 Hyperlipidemia 01/31/2020 Assessment & Plan (07/15/2022 1:45 PM GI TECH): Lab Results Component Value Date CHOL 206 [...] nodule 12/14/2019 Overview (12/14/2019): Managed by pulmonology intermediate current use of anticoagulant 9 Assessment & Plan (07/15/2022 1:43 PM GI TECH): Continue eliquis 5 mg bid for afib Essential hypertension 04/11/2019 Assessment & Plan (02/14/2024 1:38 PM CDT): BP Readings from Last 3 Encounters: 02/02/24 128/74 01/31/24 134/74 11/03/23 141/65 There were no vitals taken for this visit. Lab Results Component Value Date POTASSIUM 4.5 09/01/2023 at goal at this time C/w losartan 50 mg qd C/w [id number] mg tid every day Assessment & Plan (07/18/2023 3:41 PM GI TECH): BP Readings from Last 3 Encounters: 07/18/23 [...] day Assessment & Plan (07/15/2022 1:44 PM GI TECH): BP Readings from Last 3 Encounters: 07/15/22 [...] changes Assessment & Plan (04/27/2021 3:07 PM GI TECH): Pt needs f/u with PCP for [facility] Labs ordered to do prior to OV. Assessment & Plan (02/14/2020 10:31 PM CDT): Elevated, patient encouraged to notify midlevel provider. Cont current meds. Assessment & Plan (07/06/2019 2:46 PM GI TECH): Clinically improved, continue current meds. intermediate (current) use of opiate analgesic 03/16 Osteoarthritis of knee 02/19/2019 Influenza vaccine refused 02/19/2019 Assessment & Plan (02/19/2019 4:38 PM CDT): Patient has an egg sensitivity. Non-seasonal allergic rhinitis 11/16/2018 Assessment & Plan (02/19/2019 5:38 PM CDT): Stable, managed by pulmonology. Generalized anxiety disorder 11/13/2018 Assessment & Plan (02/14/2020 10:32 PM CDT): Stable. Cont. Current meds. Assessment & Plan (07/06/2019 2:47 PM GI TECH): D/C Xanax, switched to Clonazepam today. Assessment [...] O2 @ 4 L Paroxysmal atrial fibrillation ([facility]) 019 Assessment & Plan (02/14/2024 1:38 PM CDT): Continue cardizem, and eliquis Following with cardi Rate controlled today Assessment & Plan (07/15/2022 1:45 PM GI TECH): Continue cardizem, and eliquis Following with cardi Rate controlled today Assessment & Plan (02/14/2020 10:34 PM CDT): Managed by cardiology. Assessment & Plan (07/06/2019 2:47 PM GI TECH): NSR today. Asx. Managed by cardiology. Assessment & Plan (02/19/2019 5:37 PM CDT): Asx. Continue current therapy. Managed by cardiology. Fibromyalgia 02/22/2018 Chronic pain syndrome 02/13/2018 Assessment & Plan (07/18/2023 3:15 PM GI TECH): Follows with pain mgmt Assessment & Plan [...] therapy. Assessment & Plan (07/06/2019 2:46 PM GI TECH): Stable. Cont. Current meds. Assessment & Plan (02/19/2019 5:36 PM CDT): Stable. Continue current therapy. Assessment & Plan (11/16/2018 10:11 PM CDT): Stable. Cont. Current meds. 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 Assessment & Plan (07/06/2019 2:46 PM GI TECH): Stable. Cont. Current meds. Assessment & Plan [...] counseling. Assessment & Plan (07/18/2023 3:37 PM GI TECH): Wt Readings from Last 3 Encounters: 07/18/23 [...] counseling. Assessment & Plan (07/15/2022 1:45 PM GI TECH): Wt Readings from Last 3 Encounters: 07/15/22 [...] counseling. Assessment & Plan (05/07/2021 7:43 PM GI TECH): BMI Follow-up includes: nutrition counseling and exercise counseling. Assessment & Plan (04/27/2021 3:07 PM GI TECH): Healthy, low carbohydrate lifestyle and exercise for 150min/week recommended Assessment & Plan (02/14/2020 10:35 PM CDT): Weight reduction, daily exercise and dietary modifications recommended. Assessment & Plan (07/06/2019 2:48 PM GI TECH): Unchanged. Encouraged patient to decrease weight, increase [...] labs Assessment & Plan (07/18/2023 3:18 PM GI TECH): Lab Results Component Value Date CHOL 206 [...] med. Assessment & Plan (07/06/2019 2:46 PM GI TECH): Stable. Cont. Current meds. Assessment & Plan (02/19/2019 5:35 PM CDT): Stable. Cont. Current meds. Assessment & Plan (11/16/2018 10:11 PM CDT): Stable. Cont. Current meds. Hernia of anterior abdominal wall 12/07/2011 Overview (08/20/2016): VENTRAL HERNIA NOS Psoriasis 10/14/2008 Overview (07/06/2019): Assessment & Plan (07/06/2019 2:47 PM GI TECH): Clinically improved, continue current meds. Current Oncology Plans No current plan information found. Past Plans Radiation Treatments * No radiation treatments are documented for this patient in [facility]. Treatments may have been administered in another system. Lifetime Dose Tracking * Chemical Lifetime Dose Automatic Entry Manual Entr y Fluoro Time 0.05 minutes 0.05 minutes 0 minutes Air kerma at the reference point (Ka,r) 2.144 mGy 2 .144 mGy 0 mGy DLP 976 mGycm 976 mGycm 0 mGycm Resolved Problems Problem Noted Date Diagnosed Date [...] Plan (02/14/2020 10:35 PM CDT): Managed by public services assistant. Lumbar radiculopathy 09/20/2019 024 DDD (degenerative disc [...]
--- OUTSIDE RECORDS SUMMARY | 2024-06-19 17:31 | XMS_ITS | Clinical Summary ---
Author Organization [facility] Address [address] [place] [address] Phone Care Team Providers Care Service Desk Agent Name Role Phone JOEL DOLL MD Unavailable [phone] Reason for Visit and Chief Complaint PELVIC W/TVT Problems Includes: Problems addressed during this encounter and other active Problems All Visits Onset Date Resolved Date Provider Condition S tatus Ventral Hernia 08/11/2017 JOEL Silverio MD Active Last Documented On 08/11/2017 11:41AM ; [facility] Note: Unchanged Female Pelvic Pain 11/05/2014 JOEL LEHMAN MD Active Last Documented On 11/05/2014 3:59PM ; [facility] Note: Unchanged Cervical Dysplasia 11/05/2014 JOEL LEHMAN MD Active Last Documented On 11/05/2014 3:59PM ; [facility] Note: Unchanged - with Dr Walton: in the 9 0's: colp/bx/cone bx/ then freezing: nl since then Colon Cancer 11/05/2014 JOEL DOLL MD Active Last Documented On 11/05/2014 3:59PM ; [facility] Note: Unchanged - in 2001: no chemo or r adiation Breast Fibrocystic Disease 11/05/2014 JOEL DOLL MD Active Last Documented On 11/05/2014 3:59PM ; [facility] Note: Unchanged 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 JOEL FERNÁNDEZ MD Active Last Documented On 11/05/2014 3:59PM ; [facility] Note: Unchanged Plan of Treatment No [...] On 8 10:27AM By MAMADOU BURKS ; [facility] Paxil 40MG Oral Tablet 03/01/2017 Provider: Diagnosis: Last Documented On 7 2:51PM By MAMADOU BURKS ; [facility] Breo Ellipta 200-25MCG/INH I nhalation Aerosol Powder Breath Activated 03/01/2017 Provider: Diagnosis: Last Documented On 7 2:52PM By MAMADOU BURKS ; [facility] Ambien 10MG Oral Tablet 03/01/2017 Provider: Diagnosis: Last Documented On 7 2:53PM By MAMADOU BURKS ; [facility] Bentyl 20MG Oral Tablet 03/01/2017 Provider: Diagnosis: takes 40mg Last Documented On 7 2:54PM By MAMADOU BURKS ; [facility] Vicodin 5-300MG Oral Tablet 03/01/2017 Provider: Diagnosis: Last Documented On 7 2:54PM By MAMADOU BURKS ; [facility] PriLOSEC OTC 20MG Oral Tablet Delayed Release 03/01/20 Provider: Diagnosis: Last Documented On 7 2:55PM By MAMADOU BURKS ; [facility] Mometasone Furoate 0.1% External Ointment 03/01/2017 Provider: Diagnosis: Last Documented On 7 2:56PM By MAMADOU BURKS ; [facility] Ibuprofen 600MG Oral Tablet 03/01/2017 Provider: Diagnosis: prn Last Documented On 7 2:56PM By MAMADOU BURKS ; [facility] PARoxetine HCl 40 MG Tablet 11/03/2014 Provider: Diagnosis: Last Documented On 5 2:48PM By NEGRITA COTTER LPN ; [facility] ALPRAZolam 0.5 MG Tablet 10/17/2014 Provider: Diagnosis: Last Documented On 5 2:48PM By NEGRITA COTTER LPN ; [facility] Pravastatin Sodium 40 MG Tablet 08/12/2014 Provider: Diagnosis: Last Documented On 5 2:48PM By NEGRITA COTTER LPN ; [facility] Medications Administered Includes: Administered Medications from [...] Active Last Documented On 8 11:03AM ; [facility] Xopenex Concentrate Allergy 11/05/2014 Active Last Documented On 8 11:03AM ; [facility] Quinolones Allergy 08/05/2017 Active Last Documented On 8 12:00PM ; [facility] Levaquin Allergy 11/05/2014 Active Last Documented On 8 11:03AM ; [facility] Latex Allergy 11/05/2014 Active Last Documented On 8 11:03AM ; [facility] Effexor XR Allergy 03/01/2017 Active Last Documented On 8 11:03AM ; [facility] Ceftin Allergy 11/05/2014 Active Last Documented On 8 11:03AM ; [facility] Encounters Encounter Provider Location Date Check-In Time Check-Out Time Diagnosis PELVIC W/TVT SARAH RO RN NP [facility]ER 8 12:53PM 1:19PM Insurance Includes: Active Insurance Policies Plan Name Member ID Group # Subscriber Relationship Effect matthew Dates 1 - [facility] [employer] [id number] LEAH Rodriguez Clinical Notes Includes: Clinical Notes from this encounter No Clinical Notes Recorded
--- OUTSIDE RECORDS SUMMARY | 2024-06-19 17:31 | XMS_ITS | Encounter Summary ---
Author Organization [facility] Address [address] [place] [address] Care Team Providers Care Enterprise Application Administrator Name Role Phone Souleymane Jackson MD Unavailable [phone] Lupillo Brownlee MD Unavailable [phone] Yossi Caro MD Unavailable [phone] Avery Lux MD Unavailable [phone] Raf Ovalles MD Unavailable [phone] Sindy Hatch MD Unavailable [phone] Saleem Rod MD Primary Care Provider [phone] Reason for Visit * Reason Onset Date Comments sick call 06/19/2024 Encounter Details Date Type Department Care Team (Late st Contact Info) Description 06/19/2024 Telephone [facility] Pulmonary at [address] [place] [address] Carrie Murillo LPN sick call Social History Tobacco Use Types Packs/Day Years [...] than three times a week 07/13/2022 Attends [employer] Not on file 07/13 Do you belong to any clubs o r organizations such as judaism groups, unions, fraternal or athletic groups, or [...] place to sleep or slept in a retirement (including now)? No 07/13/2022 Personal Safety Answer Date Recorded Getting School Help Needed Denies 04/28 Comments No Sex and Gender Information Value Date Recorded Sex Assigned at Not on file Legal Sex Female 12:26 AM HEAD OF PHYSICS Gender Identity Not on file Sexual Orientation Not on file documented as of this encounter Miscellaneous Notes * Telephone Encounter - Carrie Murillo LPN - 06/19/2024 1:21 PM CST Patient called in with sick symptoms. She has a cough and is SOB and is coughing up thick phlegm. She also has sinus drainage. She was asking for antibiotics and steroids. The patient denied having been tested for covid, flu, or RSV. Patient was advised to go to urgent care to be tested since flu was going around. They could prescribe her medication she needs while there. Patient refused. Patientwas offered to test at [facility] and call us back with results. Patient refused. OF PHYSICS documented in this encounter Plan of Treatment Upcoming Encounters Date Type Department Care Team (Late st Contact Info) Description 08/03/2024 8:55 AM CDT Hospital Encounter [address] [address] Felicity Galarza MD [address] [place] [address] DR [address]AR[address]O [address] [place] [id number] 08/03/2024 8:55 AM CDT - 08/03/2024 9:25 AM CDT Surgery [address] [address] Felicity Galarza MD [address] [place] [address] DR [address]AR[address]O [address] [place] [id number] COLONOSCOPY Scheduled Procedures Name Priority Associated Diagnoses Date/Ti me COLONOSCOPY Personal history of colon cancer Encounter for screening colonoscopy 08/03/2024 8:55 AM CDT documented as of this encounter Goals Goal Patient Goal Type Associated Problems Recent Progress Patient-Stated? Author [facility] On track( 020 8:37 AM CDT) Peri Suarez, JCARLOS Note: Patient will establish a comfort-function goal and identify the pain level that will allow the patient to perform desired activities and achieve an acceptable quality of life. documented as of this encounter Visit Diagnoses Not on filedocumented in this encounter Care Teams Enterprise Application Administrator Relationship Specialty Start Date End Date Saleem Rod MD [address] [facility] [place] [address] PCP - General Family Medicine 11/18/22 Souleymane Jackson MD Consulting Physician Pulmonary Disease 11/13/18 Lupillo Brownlee MD Referring Physician Orthopedic Surgery 11/13/18 Yossi Caro MD Consulting Physician Cardiology 02/14/20 Avery Lux MD Anesthesiologist Anesthesiology 02/14/20 Raf Ovalles MD [address] [place] [address] Consulting Physician Gastroenterology 02/14/20 [place] [id number] [address] Consulting Physician Cardiology 12/29/20 documented as of this encounter
--- OUTSIDE RECORDS SUMMARY | 2024-06-19 17:31 | XMS_ITS | Clinical Summary ---
Author Organization [facility] Address [address] [place] [address] Phone Care Team Providers Care Digital Account Supervisor Name Role Phone JOEL DOLL MD Unavailable [phone] Reason for Visit and Chief Complaint CHART UPDATE Problems Includes: Problems addressed during this encounter and other active Problems Current Visit Onset Date Resolved Date Provider Conditio n Status Cervical Dysplasia 11/05/2014 JOEL DOLL MD Active Last Documented On 11/05/2014 3:59PM ; [facility] Note: Unchanged - with Dr Walton: in the 9 0's: colp/bx/cone bx/ then freezing: nl since then Colon Cancer 11/05/2014 JOEL DOLL MD Activ e Last Documented On 11/05/2014 3:59PM ; [facility] Note: Unchanged - in 2001: no chemo or r adiation Past Visits Onset Date Resolved Date Provider Condition Status Ventral Hernia 08/11/2017 JOEL DOLL MD Act matthew Last Documented On 08/11/2017 11:41AM ; [facility] Note: Unchanged Female Pelvic Pain 11/05/2014 JOEL DOLL MD Active Last Documented On 11/05/2014 3:59PM ; [facility] Note: Unchanged Breast Fibrocystic Disease 11/05/2014 JOEL DOLL MD Active Last Documented On 11/05/2014 3:59PM ; [facility] Note: Unchanged 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 JOEL Lam Active Last Documented On 11/05/2014 3:59PM ; [facility] Note: Unchanged Plan of Treatment No [...] On 8 10:27AM By MAMADOU BURKS ; [facility] Paxil 40MG Oral Tablet 03/01/2017 Provider: Diagnosis: Last Documented On 7 2:51PM By MAMADOU BURKS ; [facility] Breo Ellipta 200-25MCG/INH I nhalation Aerosol Powder Breath Activated 03/01/2017 Provider: Diagnosis: Last Documented On 7 2:52PM By MAMADOU BURKS ; [facility] Ambien 10MG Oral Tablet 03/01/2017 Provider: Diagnosis: Last Documented On 7 2:53PM By MAMADOU BURKS ; [facility] Bentyl 20MG Oral Tablet 03/01/2017 Provider: Diagnosis: takes 40mg Last Documented On 7 2:54PM By MAMADOU BURKS ; [facility] Vicodin 5-300MG Oral Tablet 03/01/2017 Provider: Diagnosis: Last Documented On 7 2:54PM By MAMADOU BURKS ; [facility] PriLOSEC OTC 20MG Oral Tablet Delayed Release 03/01/20 Provider: Diagnosis: Last Documented On 7 2:55PM By MAMADOU BURKS ; [facility] Mometasone Furoate 0.1% External Ointment 03/01/2017 Provider: Diagnosis: Last Documented On 7 2:56PM By MAMADOU BURKS ; [facility] Ibuprofen 600MG Oral Tablet 03/01/2017 Provider: Diagnosis: prn Last Documented On 7 2:56PM By MAMADOU BURKS ; [facility] PARoxetine HCl 40 MG Tablet 11/03/2014 Provider: Diagnosis: Last Documented On 5 2:48PM By NEGRITA COTTER LPN ; [facility] ALPRAZolam 0.5 MG Tablet 10/17/2014 Provider: Diagnosis: Last Documented On 5 2:48PM By NEGRITA COTTER LPN ; [facility] Pravastatin Sodium 40 MG Tablet 08/12/2014 Provider: Diagnosis: Last Documented On 5 2:48PM By NEGRITA COTTER LPN ; [facility] Past Medications on file Clindamycin Phosphate 2% Vaginal Cream 08/05/2017 - 08/12/2017 Provider: SARAH RO RN NAREN Diagnosis: Acute vaginitis as directed 1 CHRISTY IN VAGINA EVERY NIGHT X 7 Last Documented On 8 12:16PM By SARAH CRISTOBAL ; [facility] Ciprofloxacin HCl 500MG Oral Tablet 08/03/2017 - 08/08/2017 Provider: SARAH COPELAND Diagnosis: Acute vaginitis One tablet twice a day TAKE DIRECTED W/FOOD Last Documented On 8 11:44AM By SARAH CRISTOBAL ; [facility] Medications Administered Includes: Administered Medications [...] 11/05/2014 Last Documented On 8 10:36AM ; [facility] Surgical / procedural histor y 1998 Lt knee ACL reconstruction ~1999 Rt knee repair - lateral release ~Lt plantar faciotomy ~2001 Lt hemicolectomy also left ovary removed due to Dr Schmitz nicked it during hemicolectomy ~2010 repair of abdominal hernia with mesh x 2 ~2010 bowel resection 11/05/2014 Last Documented On 8 10:36AM ; [facility] History of tubal ligation 1982 5 Last Documented On 8 10:36AM ; [facility] Medical History Includes: Medical History addressed during this encounter Description Last Updated Last pap smear date 11/05/2014 08/11/2017 Last Documented On 8 10:36AM ; [facility] History of irritable bowel syndrome 07/15 Last Documented On 8 10:36AM ; [facility] History of complete colonoscopy 03/17/20 17 polyps repear in 3 years, [facility] 08/03/2017 Last Documented On 8 10:36AM ; [facility] LMP: [id number]/03/2017 Last Documented On 8 10:36AM ; [facility] History of a DXA of the lateral lumbar s pine was performed 11/27/2014 08/03/2017 Last Documented On 8 10:36AM ; [facility] History of Pap smear done 03/02/2017 Last Documented On 8 10:36AM ; [facility] Depression 03/01/2017 Last Documented On 8 10:36AM ; [facility] A colonoscopy was performed scheduled fo r 03/17/17 03/01/2017 Last Documented On 8 10:36AM ; [facility] Last mammogram date: 09/23/2014 7 Last Documented On 8 10:36AM ; [facility] Patient recently had a dexa scan 11/27/2014 -- years ago when on prednisone: 'it was good' 03/01/2017 Last Documented On 8 10:36AM ; [facility] Result: normal 03/01/2017 Last Documented On 8 10:36AM ; [facility] Result: normal 03/01/2017 Last Documented On 8 10:36AM ; [facility] Anxiety 11/05/2014 Last Documented On 8 10:36AM ; [facility] Colon cancer in 2002: no chemo or radiat ion 11/05/2014 Last Documented On 8 10:36AM ; [facility] 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 10/15 Last Documented On 8 10:36AM ; [facility] Cervical dysplasia with Dr Marilyn quiros: in the 90's: colp/bx/cone bx/ then freezing: nl since then 11/05/2014 Last Documented On 8 10:36AM ; [facility] Aborta 1 at 6wks with D&C 11/05/2014 Last Documented On 8 10:36AM ; [facility] Vaginal delivery x 3: 6 8lb 7oz male hemorrhaged ~11/15/77 7lb 8oz male ~09/25/81 7lb 6oz female ~3rd child at age 16 of avelrhabdomyosarcoma 11/05/2014 Last Documented On 8 10:36AM ; [facility] History of urinary tract infection 11/05 Last Documented On 8 10:36AM ; [facility] History of asthma 11/05/2014 Last Documented On 8 10:36AM ; [facility] History of fibrocystic disease of breast 11/05/2014 Last Documented On 8 10:36AM ; [facility] History of hyperlipidemia 11/05/2014 Last Documented On 8 10:36AM ; [facility] History of thyroid disorder nodules 10/15 Last Documented On 8 10:36AM ; [facility] Sexually active 11/05/2014 Last Documented On 8 10:36AM ; [facility] 4 11/05/2014 Last Documented On 8 10:36AM ; [facility] History of screening mammogram was perfo rmed 09/23/2014 11/05/2014 Last Documented On 8 10:36AM ; [facility] Para 3 11/05/2014 Last Documented On 8 10:36AM ; [facility] Family History Includes: Family History addressed during this encounter Description Last Updated Maternal aunt's history of F amily history of breast neoplasm malignant mat aunt in her 60's 03/01/2017 Last Documented On 8 10:36AM ; [facility] Family history of breast neoplasm malign ant mat aunt in her 60's 11/05/2014 Last Documented On 8 10:36AM ; [facility] Family history of diabetes mellitus Moth er, brother, & MGF 11/05/2014 Last Documented On 8 10:36AM ; [facility] Family history of heart disease parents 11/05/2014 Last Documented On 8 10:36AM ; [facility] Family history of hypercholesterolemia M other & brothers 11/05/2014 Last Documented On 8 10:36AM ; [facility] Family history of hypertension parents 0 11/05/2014 Last Documented On 8 10:36AM ; [facility] Review of Systems Includes: Review of [...] Active Last Documented On 8 11:03AM ; [facility] Xopenex Concentrate Allergy 11/05/2014 Active Last Documented On 8 11:03AM ; [facility] Quinolones Allergy 08/05/2017 Active Last Documented On 8 12:00PM ; [facility] Levaquin Allergy 11/05/2014 Active Last Documented On 8 11:03AM ; [facility] Latex Allergy 11/05/2014 Active Last Documented On 8 11:03AM ; [facility] Effexor XR Allergy 03/01/2017 Active Last Documented On 8 11:03AM ; [facility] Ceftin Allergy 11/05/2014 Active Last Documented On 8 11:03AM ; [facility] Encounters Encounter Provider Location Date Check-In Time Check-Out Time Diagnosis CHART UPDATE SARAH RO RN NAREN 08/07/2017 10:36AM 11:59PM Insurance Includes: Active Insurance Policies Plan Name Member ID Group # Subscriber Relationship Effect matthew Dates 1 - [facility] [id number] LEAH Rodriguez Clinical Notes Includes: Clinical Notes from this encounter No Clinical Notes Recorded
--- OUTSIDE RECORDS SUMMARY | 2024-06-19 17:31 | XMS_ITS | Clinical Summary ---
Author Organization [facility] Address [address] [place] [address] Phone Care Team Providers Care Senior Ruby Developer Name Role Phone JOEL DOLL MD Unavailable [phone] Reason for Visit and Chief Complaint The Chief Complaint is: f/u for pelvic pain Problems Includes: Problems addressed during this encounter and other active Problems Current Visit Onset Date Resolved Date Provider Conditio n Status Ventral Hernia 08/11/2017 JOEL DOLL MD Act matthew Last Documented On 08/11/2017 11:41AM ; [facility] Note: Unchanged Cervical Dysplasia 11/05/2014 JOEL DOLL MD Active Last Documented On 11/05/2014 3:59PM ; [facility] Note: Unchanged - with Dr Walton: in the 9 0's: colp/bx/cone bx/ then freezing: nl since then Colon Cancer 11/05/2014 JOEL DOLL MD Activ e Last Documented On 11/05/2014 3:59PM ; [facility] Note: Unchanged - in 2001: no chemo or r adiation Past Visits Onset Date Resolved Date Provider Condition Status Female Pelvic Pain 11/05/2014 JOEL DOLL MD Active Last Documented On 11/05/2014 3:59PM ; [facility] Note: Unchanged Breast Fibrocystic Disease 11/05/2014 JOEL DOLL MD Active Last Documented On 11/05/2014 3:59PM ; [facility] Note: Unchanged 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 JOEL Lam Active Last Documented On 11/05/2014 3:59PM ; [facility] Note: Unchanged Plan of Treatment No Plan of Treatment Recorded Assessments Includes: Assessments from this encounter Findings - Ventral hernia - Last Documented On 08/11/2017 11:42AM ; [facility] Medical Equipment - Implanted Devices Includes: Current Devices No Medical Equipment Recorded Medications Includes: Medications discussed during this encounter and other current Medications Discontinued / Stopped on this date on 03/01/2017 Gabapentin 600MG Oral Tablet Provider: Diagnosis: Last Documented On 8 10:26AM By MAMADOU BURKS ; [facility] Spiriva HandiHaler 18 MCG Capsule Provide r: Diagnosis: Last Documented On 8 10:26AM By MAMADOU BURKS ; [facility] Zolpidem Tartrate 10 MG Tablet Provider: Diagnosis: Last Documented On 8 10:26AM By MAMADOU BURKS ; [facility] Current Medications (continue as prescribed) Albuterol Sulfate 1.25MG/3ML Inhalation Nebuliza tion solution 08/11/2017 Provider: Diagnosis: Last Documented On 8 10:27AM By MAMADOU BURKS ; [facility] Paxil 40MG Oral Tablet 03/01/2017 Provider: Diagnosis: Last Documented On 7 2:51PM By MAMADOU BURKS ; [facility] Breo Ellipta 200-25MCG/INH I nhalation Aerosol Powder Breath Activated 03/01/2017 Provider: Diagnosis: Last Documented On 7 2:52PM By MAMADOU BURKS ; [facility] Ambien 10MG Oral Tablet 03/01/2017 Provider: Diagnosis: Last Documented On 7 2:53PM By MAMADOU BURKS ; [facility] Bentyl 20MG Oral Tablet 03/01/2017 Provider: Diagnosis: takes 40mg Last Documented On 7 2:54PM By MAMADOU BURKS ; [facility] Vicodin 5-300MG Oral Tablet 03/01/2017 Provider: Diagnosis: Last Documented On 7 2:54PM By MAMADOU BURKS ; [facility] PriLOSEC OTC 20MG Oral Tablet Delayed Release 03/01/20 Provider: Diagnosis: Last Documented On 7 2:55PM By MAMADOU BURKS ; [facility] Mometasone Furoate 0.1% External Ointment 03/01/2017 Provider: Diagnosis: Last Documented On 7 2:56PM By MAMADOU BURKS ; [facility] Ibuprofen 600MG Oral Tablet 03/01/2017 Provider: Diagnosis: prn Last Documented On 7 2:56PM By MAMADOU BURKS ; [facility] PARoxetine HCl 40 MG Tablet 11/03/2014 Provider: Diagnosis: Last Documented On 5 2:48PM By NEGRITA COTTER LPN ; [facility] ALPRAZolam 0.5 MG Tablet 10/17/2014 Provider: Diagnosis: Last Documented On 5 2:48PM By NEGRITA COTTER LPN ; [facility] Pravastatin Sodium 40 MG Tablet 08/12/2014 Provider: Diagnosis: Last Documented On 5 2:48PM By NEGRITA COTTER LPN ; [facility] Past Medications on file Clindamycin Phosphate 2% Vaginal Cream 08/05/2017 - 08/12/2017 Provider: SARAH COPELAND Diagnosis: Acute vaginitis as directed 1 CHRISTY IN VAGINA EVERY NIGHT X 7 Last Documented On 8 12:16PM By SARAH CRISTOBAL ; [facility] Ciprofloxacin HCl 500MG Oral Tablet 08/03/2017 - 08/08/2017 Provider: SARAH COPELAND Diagnosis: Acute vaginitis One tablet twice a day TAKE DIRECTED W/FOOD Last Documented On 8 11:44AM By SARAH CRISTOBAL ; [facility] Medications Administered Includes: Administered Medications from this encounter No Administered Medications Recorded Vital Signs Includes: Vital Signs from this encounter Vital Name 08/11/2017 10:17A Blood Pressure Sitting (mmHg) 130/90 Height (in) 67.5 Weight (lb) 305 Body Mass Index (kg/m2) 47.1 Body Surface Area (m2) 2.4 Last Documented: On 08/11/2017 10:22A M ; [facility] Results Includes: Results discussed during this [...] 08/03/2017 Last Documented On 8 10:15AM ; [facility] Marital history 08/03/2017 Last Documented On 8 10:15AM ; [facility] Not exercising regularly 08/03/2017 Last Documented On 8 10:15AM ; [facility] Not using alcohol 08/03/2017 Last Documented On 8 10:15AM ; [facility] Not using drugs 08/03/2017 Last Documented On 8 10:15AM ; [facility] Sexually active with 1 partners in the l ast year 08/03/2017 Last Documented On 8 10:15AM ; [facility] Smoking status : Never smoker 08/03/2017 Last Documented On 8 10:15AM ; [facility] Procedures and Surgical History Includes: Procedures from this encounter Procedures Code Diagnosis Performing Provider Service L ocation Service Date Clinical summary provided to patient Last Documented On 8 11:38AM ; [facility] Surgical History Last Updated Previous colposcopy 08/11/2017 Last Documented On 8 11:42AM ; [facility] Dilation + Curettage ---Jen block in about 2004 with hysteroscopy---? not sure why 11/05/2014 Last Documented On 8 10:15AM ; [facility] Surgical / procedural histor y 1998 Lt knee ACL reconstruction ~1999 Rt knee repair - lateral release ~Lt plantar faciotomy ~2001 Lt hemicolectomy also left ovary removed due to Dr Schmitz nicked it during hemicolectomy ~2010 repair of abdominal hernia with mesh x 2 ~2010 bowel resection 11/05/2014 Last Documented On 8 10:15AM ; [facility] History of tubal ligation 1982 5 Last Documented On 8 10:15AM ; [facility] Medical History Includes: Medical History addressed during this encounter Description Last Updated Last pap smear date 03/02/2017 8 Last Documented On 8 11:42AM ; [facility] History of irritable bowel syndrome 07/15 Last Documented On 8 10:15AM ; [facility] History of complete colonoscopy 03/17/20 17 polyps repear in 3 years, [facility] 08/03/2017 Last Documented On 8 10:15AM ; [facility] LMP: 201008/03/2017 Last Documented On 8 10:15AM ; [facility] History of a DXA of the lateral lumbar s pine was performed 11/27/2014 08/03/2017 Last Documented On 8 10:15AM ; [facility] History of Pap smear done 03/02/2017 Last Documented On 8 10:15AM ; [facility] Depression 03/01/2017 Last Documented On 8 10:15AM ; [facility] A colonoscopy was performed scheduled fo r 03/17/17 03/01/2017 Last Documented On 8 10:15AM ; [facility] Last mammogram date: 09/23/2014 7 Last Documented On 8 10:15AM ; [facility] Patient recently had a dexa scan 11/27/2014 -- years ago when on prednisone: 'it was good' 03/01/2017 Last Documented On 8 10:15AM ; [facility] Result: normal 03/01/2017 Last Documented On 8 10:15AM ; [facility] Result: normal 03/01/2017 Last Documented On 8 10:15AM ; [facility] Anxiety 11/05/2014 Last Documented On 8 10:15AM ; [facility] Colon cancer in 2002: no chemo or radiat ion 11/05/2014 Last Documented On 8 10:15AM ; [facility] 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 10/15 Last Documented On 8 10:15AM ; [facility] Cervical dysplasia with Dr Marilyn duongi: in the : colp/bx/cone bx/ then freezing: nl since then 11/05/2014 Last Documented On 8 10:15AM ; [facility] Aborta 1 at 6wks with D&C 11/05/2014 Last Documented On 8 10:15AM ; [facility] Vaginal delivery x 3: 6 8lb 7oz male hemorrhaged ~11/15/77 7lb 8oz male ~09/25/81 7lb 6oz female ~3rd child at age 16 of avelrhabdomyosarcoma 11/05/2014 Last Documented On 8 10:15AM ; [facility] History of urinary tract infection 11/05 Last Documented On 8 10:15AM ; [facility] History of asthma 11/05/2014 Last Documented On 8 10:15AM ; [facility] History of fibrocystic disease of breast 11/05/2014 Last Documented On 8 10:15AM ; [facility] History of hyperlipidemia 11/05/2014 Last Documented On 8 10:15AM ; [facility] History of thyroid disorder nodules 10/15 Last Documented On 8 10:15AM ; [facility] Sexually active 11/05/2014 Last Documented On 8 10:15AM ; [facility] 4 11/05/2014 Last Documented On 8 10:15AM ; [facility] History of screening mammogram was perfo rmed 09/23/2014 11/05/2014 Last Documented On 8 10:15AM ; [facility] Para 3 11/05/2014 Last Documented On 8 10:15AM ; [facility] Family History Includes: Family History addressed during this encounter Description Last Updated Maternal aunt's history of F amily history of breast neoplasm malignant mat aunt in her 60's 03/01/2017 Last Documented On 8 10:15AM ; [facility] Family history of diabetes mellitus Moth er, brother, & MGF 11/05/2014 Last Documented On 8 10:15AM ; [facility] Family history of heart disease parents 11/05/2014 Last Documented On 8 10:15AM ; [facility] Family history of hypercholesterolemia M other & brothers 11/05/2014 Last Documented On 8 10:15AM ; [facility] Family history of hypertension parents 0 11/05/2014 Last Documented On 8 10:15AM ; [facility] Review of Systems Includes: Review of [...] Last Documented On 8 11:03AM ; [facility] Xopenex Concentrate Allergy 11/05/2014 Active Last Documented On 8 11:03AM ; [facility] Quinolones Allergy 08/05/2017 Active Last Documented On 8 12:00PM ; [facility] Levaquin Allergy 11/05/2014 Active Last Documented On 8 11:03AM ; [facility] Latex Allergy 11/05/2014 Active Last Documented On 8 11:03AM ; [facility] Effexor XR Allergy 03/01/2017 Active Last Documented On 8 11:03AM ; [facility] Ceftin Allergy 11/05/2014 Active Last Documented On 8 11:03AM ; [facility] Encounters Encounter Provider Location Date Check-In Time Check-Out Time Diagnosis PROBLEM VISIT [facility] 08/12/19 18 10:14AM 11:00AM Ventral Hernia Insurance Includes: Active Insurance Policies Plan Name Member ID Group # Subscriber Relationship Effect matthew Dates 1 - [facility] [id number] LEAH LAZO Self Clinical Notes Includes: Clinical Notes from this encounter No Clinical Notes Recorded
--- OUTSIDE RECORDS SUMMARY | 2024-06-19 17:32 | XMS_ITS | CONTINUITY OF CARE DOCUMENT ---
Author Name triston harrymartha Address Unknown Organization [facility] Address [address] [place] [address] Phone [phone] Care Team Providers Care Licensed Insurance Agent Name Role Phone Holden OTERO, Sindy Unavailable [phone] Saleem Rod MD Unavailable Saleem Rod MD Unavailable PROBLEMS Condition Status Date Provider Notes Shortness of breath active Beverley Singletary RN S/P BI-V PM Biotronik (MRI Safe) active Est her Brooke Cardiology examination active rBody bliss DO Asthma active Brody Kemp DO [...] In-person encounter Office Visit Sindy Hatch MD [facility] Rectal bleeding - In-person encounter Office Visit Sindy Hatch MD [facility] - In-person encounter Office Visit Sindy Hatch MD [facility] - In-person encounter Office Visit Sindy Hatch MD [facility] Carotid arterial disease - In-person encounter Office Visit Sindy Hatch MD [facility] - In-person encounter Office Visit Sindy Hatch MD [facility] - In-person encounter Office Visit Sindy Hatch MD [facility] - In-person encounter Office Visit Sindy Hatch MD [facility] - In-person encounter Office Visit Sindy Hatch [facility] - In-person encounter Office Visit Sindy Hatch [facility] - In-person encounter Office Visit Sindy Hatch MD [facility] - In-person encounter Office Visit Sindy Hatch MD [facility] - In-person encounter Office Visit Sindy Hatch MD [facility] - In-person encounter Office Visit Sindy Hatch MD [facility] Office - In-person encounter Office Visit Sindy Hatch MD [facility] Sick sinus syndrome - In-person encounter Office Visit Brody Kemp DO [facility] - In-person encounter Office Visit Broyd Kemp DO [facility] Cardiology examinationAsthmaColon cancerOSA on CPAPMorbid obesityHyperlipidemiaAnemiaAnxietyAtrial FibrillationHypertension VITAL SIGNS Date Observation Value Provider Body Mass Index (Ratio) 45.10 kg/m2 Dalton Hatch MD blood pressure, diastolic 99 mm[Hg] Li nkLogic blood pressure, systolic 135 mm[Hg] Kirsten kLogic pulse rate 81 /min [facility] blood pressure, cuff size regular Ka luda [facility] blood pressure, diastolic 99 mm[Hg] Jasper lares [facility] blood pressure, systolic 135 mm[Hg] Jaqui casey [facility] oxygen saturation, oximetry 90 % [facility] weight E&M 288 [lb_av] [facility] 67 [in_i] [facility] Body Mass Index (Ratio) 45.26 kg/m2 Dalton Hatch MD blood pressure, diastolic 79 mm[Hg] Jacqui nkLog blood pressure, systolic 139 mm[Hg] Kirsten [facility] blood pressure, cuff size regular As [...] lder pulse rate 89 /min Verah Bonareri [employer] oxygen saturation, oximetry 92 % Verah Bonareri [employer] blood pressure, diastolic 106 mm[Hg] Ve rah Bonareri [employer] blood pressure, systolic 145 mm[Hg] Juan ah Bonareri [employer] Body Mass Index (Ratio) 47.14 kg/m2 Derick Ahmedzai blood pressure, diastolic 98 mm[Hg] Li nkLogic blood pressure, systolic 140 mm[Hg] Kirsten kLogic blood pressure, diastolic 98 mm[Hg] Mi [facility] blood pressure, systolic 140 mm[Hg] Antonio [facility] respiratory rate E&M 93 /min Renetta Bolanos pulse rate 105 /min Vaishali emery oxygen saturation, oximetry 16 % Vaishali Bolanos blood pressure, cuff size large Ciarra rashid Luis Miguel weight E&M 301 [lb_av] Vaishali emery height E&M 67 [in_i] Vaishali emery Body Mass Index (Ratio) 48.23 kg/m2 Dalton Hatch MD blood pressure, diastolic -1 mm[Hg] Jacqui Logre blood pressure, systolic 156 mm[Hg] Kirsten [facility] blood pressure, diastolic 85 mm[Hg] Yoli arturo [...] Annemarie Grueneshaylaelder respiratory rate E&M 18 /min Annemarie G tommieenenfelder pulse rate 76 /min Annemarie Gruenenfe er weight E&M 321 [lb_av] Annemarie Gruenenfe lder height E&M 67 [in_i] Annemarie Gruenenfe er Body Mass Index (Ratio) 50.11 kg/m2 Taew on Salvatore blood pressure, diastolic 74 mm[Hg] Li nkLogic blood pressure, systolic 122 mm[Hg] Kirsten kLogic blood pressure, cuff size large Ke rri Trineshaylaeld blood pressure, diastolic 74 mm[Hg] Ke rri [facility] blood pressure, systolic 122 mm[Hg] Kristy ri Linda oxygen saturation, oximetry 90 % Annemarie Hongeduardo respiratory rate E&M 18 /min Annemarie [facility]abb [facility] pulse rate 74 /min Annemarie Lombardi [facility] weight E&M 320 [lb_av] Annemarie Lombardi [facility] height E&M 67 [in_i] Annemarie Brennondrake [facility] Body Mass Index (Ratio) 51.05 kg/m2 Taew on [place] blood pressure, diastolic 90 mm[Hg] Rh new [...] blood pressure, systolic 140 mm[Hg] Kri stdaija [place] pulse rate 121 /min Edyta [place] oxygen saturation, oximetry 95 % Edyta All respiratory rate E&M 20 /min Edyta All weight E&M 324 [lb_av] Edyta [place] height E&M 67 [in_i] Edyta All Body Mass Index (Ratio) 51.84 kg/m2 Denn is [place] DO blood pressure, diastolic 88 mm[Hg] Fe katiana Garcia blood pressure, systolic 150 mm[Hg] Fel icia Garcia oxygen saturation, oximetry 95 % Bianka Garcia respiratory rate E&M 20 /min Bianka Garcia pulse rate 131 /min Bianka Garcia temperature E&M 97.5 [degF] Bianka Garcia weight E&M 331 [lb_av] Bianka Garcia height E&M 67 [in_i] Bianka Garcia Body Mass Index (Ratio) 50.58 kg/m2 Denn is [place] DO blood pressure, diastolic 87 mm[Hg] Fe [...] Rate (calc) 88 mL/min/{1.73 _m2} LinkLogic C, [place] [address] aspartate aminotransferase (SGOT), serum 26 1/L LinkLogic 10-45 Normal C, [place] [address] alanine aminotransferase (SGPT), serum 16 1/L LinkLogic 7-45 Normal C, [place] [address] Alkaline phosphatase 103 LinkLogic 40-130 Normal C, [place] [address] albumin, serum 4.3 g/dL LinkLogic 3.5-5.0 Normal C, [place] [address] protein, total, serum 7.6 g/dL LinkLogic 6.5-8.5 Normal C, [place] [address] bilirubin, serum, total 0.4 mg/dL LinkLogic 0.1-1.2 Normal C, [place] [address] calcium, serum 9.7 mg/dL LinkLogic 8.5-10.3 Normal C, [place] [address] blood glucose, random 94 mg/dL LinkLogic 70-199 Normal C, [place] [address] creatine, serum 0.74 mg/dL LinkLogic 0.60-1.10 Normal C, [place] [address] urea nitrogen, blood 13 mg/dL LinkLogic 8-25 Normal C, [place] [address] anion gap, serum 9 mmol/L LinkLogic 2-15 Normal C, [place] [address] carbon dioxide, venous blood 31 mmol/L LinkLogic 22-32 Normal C, [place] [address] chloride, serum 104 mmol/L LinkLogic 97-110 Normal C, [place] [address] potassium, serum 4.7 MMOL/L LinkLogic 3.3-4.9 Normal C, [place] [address] sodium, serum 144 mmol/L LinkLogic 135-145 Normal C, [place] [address] activated partial thromboplastin time (aPTT) 33 s LinkLogic 27-37 Normal C, [place] [address] international normalized ratio (INR) 1.2 LinkLogic 0.9-1.2 Normal C, [place] [address] prothrombin time (patient) 13.1 s LinkLogic 9.2-13.5 Normal C, [place] [address] Absolute Basophils 0.0 K/CUMM LinkLogic 0.0-0.1 Normal C, [place] [address] Absolute Monocytes 0.5 K/CUMM LinkLogic 0.2-0.8 Normal C, [place] [address] Absolute Lymphocytes 1.4 K/CUMM LinkLogic 0.8-3.3 Normal , [place] [address] Absolute Neutrophils 4.2 K/CUMM LinkLogic 1.7-6.5 Normal C, [place] [address] nucleated red blood cells as percent of [...] Normal Absolute Neutrophil count 4388 cells/mcL LinkLogic 9115-1973 Normal mean platelet volume 10.7 fL LinkLogic [...] Normal Absolute Neutrophil count 6084 cells/mcL LinkLogic 2906-4585 Normal mean platelet volume 10.5 fL LinkLogic [...] USE Medication Status Instructions Dates Provider Indications [facility] ments dofetilide 500 mcg capsule active Take [...] by mouth three times a day - [facility] Cartia XT 300 mg capsule,extende [...] Carrizales #120, 30 days supply, Prescribed by JENNIFER SCALES, Filled 08/22/2020 FASENRA 30 MG/ML SUBCUTANEOUS [...] by mouth every night - Daisy Stewart [employer] #30, 30 days supply, Prescribed by FRANKLYN AGUILA, Filled 10/25/2019 Cartia XT 300 mg capsule,extende d release 24hr completed Take 1 capsule by mouth once a day - Daisy Stewart [employer] #30, 30 days supply, Prescribed by JENNIFER [...] nostrils once a day - Daisy Stewart [employer] #48, 90 days supply, Prescribed by FRANKLYN AGUILA, Filled 12/08/2019 Spiriva with HandiHaler 18 mcg capsule, w/inhalation device completed Inhale 1 puff by mouth once a day - Daisy Stewart [employer] #30, 30 days supply, Prescribed by CRUZ [...] mouth once a day - Daisy Stewart [employer] #60, 30 days supply, Prescribed by LIYAH [...] Provider smoking status Never smoker Daisy olson [employer] Exercise counseling Yes Daisy Stewart NP smoking status Never smoker James Hodgson social history reviewed E&M revi ewed - no changes required aJmes Hodgson social history E&M S moking History: [...] Payer name Policy type / Coverage type [place] red libertarian ID [employer] PPO O [id number] ADVANCE DIRECTIVES Name Date DISCUSSED - NO DECISION MADE TREATMENT PLAN Date Name Performer [id number],B, B P today: 122/82 P rior BP: 150/96 (09/15/2022) Labs Reviewed: C reat: 0.80 (02/04/2023) C hol: 176 (07/05/2022) HDL: 60 (07/05/2022) LDL: 93 MG/DL (CALC) (07/05/2022) T (07/05/2022) Her updated medication list for this problem includes: Diltiazem Hcl 120 Mg Tablet (Diltiazem hcl) ..... Take 1 tablet by mouth three times a day James Hodgson [id number],SJames [id number],S, H er updated medication list for this problem includes: Ezetimibe 10 Mg Tablet (Ezetimibe) ..... Take 1 tablet by mouth once a day Pravastatin 40 Mg Tablet (Pravastatin) ..... Take 1 tablet by mouth every night James Hodgson [id number],C, c onverted to SR on her own, remains in underlying sinus rhythm today c ontinue diltiazem and tikosyn James Hodgson [id number],S, H er updated medication list for this problem includes: Diltiazem Hcl 120 Mg Tablet (Diltiazem hcl) ..... Take 1 tablet by mouth three times a day James Hodgson [id number],C, w ill repeat carotids Sindy Hatch MD [id number],C, T he patient is using CPAP on a regular basis. The patient has been benefiting from therapy and should continue use. Sindy Hatch MD [id number],C, B P today: 150/96 P rior BP: 145/106 (08/06/2022) Her updated medication list for this problem includes: Diltiazem Hcl 120 Mg Tablet (Diltiazem hcl) ..... Take 1 tablet by mouth three times a day Sindy Hatch MD [id number],C, c onverted to SR on her own, remains in underlying sinus rhythm today c ontinue diltiazem and tikosyn Sindy Hatch MD [id number],C, c onverted to SR on her own, remains in underlying sinus rhythm today c ontinue diltiazem and tikosyn James Hodgson [id number],C, T he patient is using CPAP on a regular basis. The patient has been benefiting from therapy and should continue use. James Hodgson [id number],C, B P today: 150/96 P rior BP: 145/106 (08/06/2022) Her updated medication list for this problem includes: Diltiazem Hcl 120 Mg Tablet (Diltiazem hcl) ..... Take 1 tablet by mouth three times a day James Hodgson [id number],W,L DL in 90s t arget <70 s tart zedestini w ill not increase pravastatin because patient has baseline joint pain due to arthritis James Hodgson [id number],C, H er updated medication list for this problem includes: Albuterol Sulfate 90 Mcg/actuation Hfa Aerosol Inhaler (Albuterol sulfate) Mo Duboselouise SNEED [id number],C, T he patient is using CPAP on a regular basis. The patient has been benefiting from therapy and should continue use. Mo Pedromacrina SNEED [id number],C,B P elevated in office today. Pt states [...] (CALC) (07/05/2022) T (07/05/2022) Mo Pedromacrina SNEED [id number],C,E KG in office today shows Afib. On 07/12 pt had RIGOBERTO/CV x2 with 200 J--> SR. Will plan for cardioversion 08/17/22 Her updated medication list for this problem includes: Tikosyn 500 Mcg Capsule (Dofetilide) ..... Take 1 capsule by mouth twice a day Mo Pedromacrina SNEED [id number],C,P t was admitted to [facility] for tikosyn loading, 07/09-07/12/22. [...] will plan repeat CV. Daisy Stewart NP [id number],C, W eight loss was advised Daisy Stewart NP [id number],C,C HOL: 176 (07/05/2022) LDL: 93 MG/DL (CALC) (07/05/2022) HDL: 60 (07/05/2022) T (07/05/2022) Her updated medication list for this problem includes: Pravastatin 40 Mg Tablet (Pravastatin) ..... Take 1 tablet by mouth every night Daisy Stewart NP [id number],C, B P today: 140/98 P rior BP: 156/-1 (06/30/2022) Labs Reviewed: C reat: 0.85 (07/05/2022) C hol: 176 (07/05/2022) HDL: 60 (07/05/2022) LDL: 93 MG/DL (CALC) (07/05/2022) T (07/05/2022) Her updated medication list for this problem includes: Cartia Xt 300 Mg Capsule,extended Release 24hr (Diltiazem hcl) ..... Take 1 capsule by mouth once a day Daisy Stewart NP [id number],C,T he patient is using CPAP on a regular basis. The patient has been benefiting from therapy and should continue use. Orders: C OMPREHENSIVE METABOLIC PANEL, W/EGFR (47586) C BC (INCLUDES DIFF/PLT) (6399) P ROBNP, N TERMINAL (39350) M AGNESIUM (622) L IPID PANEL (8838) H EMOGLOBIN A1c (496) 9 9215 HIGH 40-54min (CPT-88032) Derick Mendoza [id number],W,E KG today shows AFIB which explains her increased SOB and and HR elevation. I discussed with her about undergoing Tikosyn treatment with EKG monitoring. If she continues to be in AFIB we will proceed with Cardioversion to convert her to sinus rhythm. Discussed risks and benefits, she expressed understanding and was agreeble. Derick Wernerduran [id number],S, B P today: 156/85 P rior BP: 152/86 (04/27/2022) Labs Reviewed: C reat: 0.97 (09/16/2020) Derick Wernerduran [id number],W,S OB is slightly worse, EKG shows AFIB, will proceed with Cardioversion Derick Wernerduran [id number],C,Weight loss w as advised Derick Mendoza [id number],C,d ue to have annual labs with PCP next week. will have labs results sent to our office. H er updated medication list for this problem includes: Pravastatin 40 Mg Tablet (Pravastatin) ..... Take 1 tablet by mouth every night Sindy Hatch MD [id number],C,on bipap at n ight. Sindy Hatch MD [id number],S,i nterrogation today AT/AF 1% 2 AF event longest 10:34hrs fastest 102bpm t urned on CLS on. appropriate function explained that if AT/AF burden would reach 5%, would consider adding an antiarrhythmic, ie Tikosyn. Sindy Hatch MD [id number],C, B P today: 152/86 P rior BP: 154/88 (01/13/2022) Labs Reviewed: C reat: 0.97 (09/16/2020) Her updated medication list for this problem includes: Cartia Xt 300 Mg Capsule,extended Release 24hr (Diltiazem hcl) ..... Take 1 capsule by mouth once a day Sindy Hatch MD [id number],C,a t baseline. ECHO: 01/2022 C ONCLUSIONS: 1 [...] mouth once a day Sindy Hatch MD [id number],C,on bipap at n ight. Daisy Stewart NP [id number],C,d ue to have annual labs with PCP next week. will have labs results sent to our office. Daisy Stewart NP [id number],C,i nterrogation today AT/AF 1% 2 AF event longest 10:34hrs fastest 102bpm t urned on CLS on. appropriate function explained that if AT/AF burden would reach 5%, would consider adding an antiarrhythmic, ie Tikosyn. Daisy Stewart NP [id number],C, B P today: 152/86 P rior BP: 154/88 (01/13/2022) Labs Reviewed: C reat: 0.97 (09/16/2020) Her updated medication list for this problem includes: Cartia Xt 300 Mg Capsule,extended Release 24hr (Diltiazem hcl) ..... Take 1 capsule by mouth once a day Daisy Stewart NP [id number],Ctrent t baseline. ECHO: 01/2022 C ONCLUSIONS: 1 [...] pressure is 32.0 mmHg. Daisy Stewart NP [id number],C, Sindy love MD [id number],C, Sindy love MD [id number],C,compliant wit h cpap Sinyd Hatch MD [id number],W, B P today: 154/88 P rior BP: 122/82 (01/28/2021) Labs Reviewed: Bethany reat: 0.97 (09/16/2020) Her updated medication list for this problem includes: Cartia Xt 300 Mg Capsule,extended Release 24hr (Diltiazem hcl) ..... Take 1 capsule by mouth once a day Sindy Hatch MD [id number],S,c ontinues to be SOB and requiring on o2. following pulmonary . will check VQ scan and Echo. if ECHO demonstrates pulm hypertension will consider verquvo H er updated medication list for this problem includes: Cartia Xt 300 Mg Capsule,extended Release 24hr (Diltiazem hcl) ..... Take 1 capsule by mouth once a day Sindy Hatch MD [id number],C,compliant wit h cpap Daisy Stewart NP [id number],C, B P today: 154/88 P rior BP: 122/82 (01/28/2021) Labs Reviewed: C reat: 0.97 (09/16/2020) Her updated medication list for this problem includes: Cartia Xt 300 Mg Capsule,extended Release 24hr (Diltiazem hcl) ..... Take 1 capsule by mouth once a day Daisy Petersenozzy [employer] [id number],C,c ontinues to be SOB and requiring on o2. following pulmonary . will check VQ scan and Echo. if ECHO demonstrates pulm hypertension will consider verquvo Daisy Terry [employer]ER [id number],C,n o recurrence, if has one WILL do TIKOSYN T he following medications were removed from the medication list: Flecainide 150 Mg Tablet (Flecainide) ..... Increase flecainide to 150mg one tab twice daily. julianna kebede , stop amiodarone Orders: E KG (CPT-96469) 9 9214 MOD 30-39min (CPT-55818) Rao Chase [id number],S, H er updated medication list for this problem includes: Pravastatin Sodium 40 Mg Oral Tablet (Pravastatin sodium) ..... Take 1 tablet by mouth nightly James Hodgson [id number],B, B P today: 122/74 P rior BP: 130/90 (10/01/2020) Her updated medication list for this problem includes: Cartia Xt 300 Mg Oral Capsule Extended Release 24 Hour (Diltiazem hcl coated beads) ..... Take 1 capsule by mouth once daily James Hodgson [id number],B, a trial fibrillation/ flutter failed on amiodarone [...] capsule by mouth once daily James Woodanita [id number],B, S /p successful cardioversion to SR on 10/23. Holding in SR today. C oninues on flecainide. Will likely need to be loaded on tikosyn in the future. Her updated medication list for this problem includes: Flecainide Acetate 150 Mg Oral Tablet (Flecainide acetate) ..... Increase flecainide to 150mg one tab twice daily. contine cartia , stop amiodarone James Woodanita Electrophysiology:stevens rupert rectal bleeding 05/16/24. she stopped her eliquis x1 week then resumed, without recurrence of rectal bleeding. pt is scheduled to see GI this tuesday. O rders: E KG (CPT-37305) C omplete Echo (07527) A lesly Duplex Ultrasound (CPT-00721) S chedule Followup (*) C OMPREHENSIVE METABOLIC PANEL, W/EGFR (54888) M AGNESIUM (622) Daisy Stewart NP Electrophysiology:compliant [...] in the future EKG today, A paced. & #13; H er updated medication list for this problem includes: Dofetilide 500 Mcg Capsule (Dofetilide) ..... Take 1 capsule by mouth twice daily Diltiazem 120mg TID mag oxide decreased to 400mg TID eliquis 5mg BID Daisy Stewart NP Electrophysiology: B P today: 135/99 P rior BP: 139/79 (04/04/2024) Labs Reviewed: C reat: 0.72 (04/06/2024) C hol: 176 (07/05/2022) HDL: 60 (07/05/2022) LDL: 93 MG/DL (CALC) (07/05/2022) T (07/05/2022) Her updated medication list for this problem includes: Diltiazem Hcl 120 Mg Tablet (Diltiazem hcl) ..... Take 1 tablet by mouth three times daily Daisy Stewart [employer] Electrophysiology:05/16/24 pt had episodes of rectal bleeding. she stopped her eliquis x1 week and then restarted. no recurrence of rectal bleeding. pt is scheduled to see GI on tuesday. O rders: 9 14-Ofc Vst-Est Level IV (CPT-55406) Daisy Stewart NP Electrophysiology:ca rotids: 02/2023 mild <50% will repeat carotids in 6 months Orders: E KG (CPT-68069) C omplete Echo (90003) A lesly Duplex Ultrasound (CPT-68961) S chedule Followup (*) C OMPREHENSIVE METABOLIC PANEL, W/EGFR (66428) M AGNESIUM (622) 9 9214-Ofc Vst-Est Level IV (CPT-80211) Daisy Stewart NP Electrophysiology:Ex tensive review of the pertinent previous and curent labs , EKGs, cardiac tesing and imaging data was done by Dr. Hatch after the indication s alternativeds risks complications were discueed patient agreed to procedure Her updated medication list for this problem includes: Tikosyn 500 Mcg Capsule (Dofetilide) ..... Take 1 capsule by mouth twice a day & #13;Orders: 9 15 HIGH 40-54min (CPT-02989) C omplex e/m visit add on (G2211) E KG (CPT-84855) B ASIC METABOLIC PANEL W/EGFR (03160) P ROTHROMBIN TIME WITH INR (8847) M [...] a day Orders: 9 9215 HIGH 40-54min (CPT-95016) C omplex e/m visit add on (G2211) E KG (CPT-11136) Sindy Hatch MD Electrophysiology: B P today: [...] from therapy and should continue use. Mo Rivera NP Electrophysiology:BP elevated in office today. Pt states [...] 93 MG/DL (CALC) (07/05/2022) T (07/05/2022) Mo Rivera NP Electrophysiology:EK G in office today shows Afib. On 07/12 pt had RIGOBERTO/CV x2 with 200 J--> SR. Will plan for cardioversion 08/17/22 Her updated medication list for this problem includes: Tikosyn 500 Mcg Capsule (Dofetilide) ..... Take 1 capsule by mouth twice a day Juanolga Miguel SNEED Electrophysiology:Pt was admitted to [facility] for tikosyn loading, 07/09-07/12/22. [...] 1 tablet by mouth every night Daisy Terry SNEED Electrophysiology: B P today: 140/98 P rior [...] use. Orders: C OMPREHENSIVE METABOLIC PANEL, W/EGFR (44563) C BC (INCLUDES DIFF/PLT) (6399) P ROBNP, N TERMINAL (25339) M AGNESIUM (622) L IPID PANEL (4190) H EMOGLOBIN A1c (496) 9 9215 HIGH 40-54min (CPT-67032) Sindy Hatch MD Electrophysiology:EK G today shows [...] night Sindy Hatch MD Electrophysiology:on bipap at [facility]. Sindy Hatch MD Electrophysiology:in terrogation today AT/AF [...] day Sindy Hatch MD Electrophysiology:on bipap at [facility]. Daisy Stewart NP Electrophysiology:ryann sigala to have annual labs with [...] cartia , stop amiodarone Orders: E KG (CPT-49488) 9 9214 MOD 30-39min (CPT-42796) Rao Chase Electrophysiology Ho spital Follow up [...] bid C onfirmed by device check Orders: Bethany barba - [facility] (CPT-31925) Her updated medication list for this problem [...] 1 week Orders: G lobal No Charge (CPT-92140) Rajohn Salvatore Electrophysiology:in cision site healing well Orders: G lobal No Charge (CPT-94709) CHEST-ROUTINE E xam: Chest two views. H [...] by mouth twice daily Orders: E KG (CPT-99977) 9 9215 HIGH 40-54min (CPT-71550) P acemaker Dual Chamber - [facility] (*) Sindy Hatch MD Electrophysiology:at [facility] fibrillation/ flutter failed on amiodarone and multiole [...] 150/88 P rior BP: 137/87 (01/31/2020) Brody Pazruthy NAVARRETE Electrophysiology:Fi rst documentation of Afib in [...] well. Will plan for CDVN next week. Brodytiana Aguilarguillermo NAVARRETE Electrophysiology:[facility] encouraged diet and weight loss. O SA on CPAP Brody Viridiana NAVARRETE Electrophysiology:Fi rst documentation of Afib in [...] We did discuss possibility of ablation. Brody Kemp DO Date Name MAGNESIUM COMPREHENSIVE METABO LIC [...] EKG Sindy Hatch MD comp leted EKG ulius Holden OTERO comp leted Schedule Followup Sindy Hatch MD [address] Hatch completed EKG Sindy Hatch MD comp leted EKG Sindy Hathc MD comp leted EKG Sindy Hatch MD comp leted EKG Sindy Hatch MD comp leted EKG Sindy Hatch MD comp leted Event Monitor Brody Kemp DO com pleted EKG Brody Kemp DO comple juan manuel
[2024-06-19 17:33] VITALS: BP 127/74; PULSE 83; RESP 20; TEMP 36.9; O2SAT 94
--- NOTE | 2024-06-19 17:57 | ED.URI ---
HPI - URI/Sore Throat General Chief Complaint: Upper Respiratory Infection Stated Complaint: cough/congestion/drainage Time Seen by Provider: 06/19/24 17:57 Source: patient and RN notes reviewed Mode of arrival: ambulatory Limitations: no limitations History of Present Illness HPI Narrative: 69 y/o female with hx lung disease presented for c/o nasal congestion and drainage and cough.,Onset 3 days. Reports occasional wheezing. 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 Denies increase in shortness of breath, nausea, vomiting, diarrhea, fevers or lethargy. MD elicited complaint: cough Related Data Home Medications ?Medication ?Instructions ?Recorded ?Confirmed ?Last Taken ?Type albuterol sulfate 90 mcg/actuation 2 inh inhalation Q4-6H PRN 04/16/21 07/26/22 Unknown History breath activated powder inhaler hydrocodone 10 mg-acetaminophen 1 tablet PO Q4-6H PRN 04/16/21 07/26/22 Unknown History 300 mg tablet (Vicodin HP) magnesium oxide 400 mg PO BID 04/16/21 07/26/22 Unknown History apixaban 5 mg tablet (Eliquis) 5 mg PO BID 07/26/22 07/26/22 Unknown History diltiazem HCl 300 mg 300 mg PO DAILY 07/26/22 07/26/22 Unknown History capsule,extended release 24 hr (Cartia XT) dofetilide 500 mcg capsule 500 mcg PO ONCE 07/26/22 07/26/22 Unknown History (Tikosyn) magnesium oxide 500 mg capsule 500 mg PO BID 07/26/22 07/26/22 Unknown History mometasone 0.1 % topical cream 1 applic topical DAILY 07/26/22 07/26/22 Unknown History omeprazole 40 mg capsule,delayed 40 mg PO DAILY 07/26/22 07/26/22 Unknown History release paroxetine HCl 40 mg tablet (Paxil) 40 mg PO DAILY 07/26/22 07/26/22 Unknown History pravastatin 40 mg tablet 40 mg PO DAILY 07/26/22 07/26/22 Unknown History zolpidem 10 mg tablet (Ambien) PO 07/26/22 07/26/22 Unknown History dicyclomine .ROUTE 06/19/24 Unknown History Allergies Allergy/AdvReac Type Severity Reaction Status Date / Time levalbuterol (From Xopenex) Allergy Severe Hypotension Verified 06/19/24 17:43 latex Allergy Intermediate Blister Verified 06/19/24 17:43 azithromycin (From Zithromax) Allergy Unknown unknown Verified 06/19/24 17:43 cefuroxime (From Ceftin) Allergy Unknown unknown Verified 06/19/24 17:43 levofloxacin (From Levaquin) Allergy Unknown unknown Verified 06/19/24 17:43 Review of Systems Review of Systems: CONSTITUTIONAL: Denies malaise, chills, sweats, fever EYES: Denies visual changes, redness, or discharge ENT: Reports rhinorrhea, congestion, denies otalgia, sore throat CARDIOVASCULAR: Denies chest pain, palpitations, edema RESPIRATORY: Reports cough, post nasal drainage. Denies dyspnea GASTROINTESTINAL: Denies abdominal pain, nausea, vomiting, diarrhea MUSCULOSKELETAL: denies myalgia PMFSH Past Medical History Medical History Irritable bowel syndrome Heart disease GERD (gastroesophageal reflux disease) Cancer Acute arthritis Anxiety Asthma Pacemaker Surgical History Surgical History S/P ACL reconstruction H/O hemicolectomy H/O resection of stomach H/O hernia repair Family History Family History Other Alcohol abuse Cancer Cerebrovascular accident Diabetes mellitus Heart disease Hypertension Social History Social History Smoking status: Never smoker Alcohol intake: never Substance use: never Living arrangements: with family Occupation/Education: retired Exam Narrative: GENERAL: well-appearing, nontoxic no acute distress. EYES: conjunctivae clear ENT: Mucous membranes moist. Nasal congestion and drainage TM pearly bradley with dull light reflex bilaterally; no tragal tenderness. Oropharynx normal, no drooling, no hoarseness, no trismus, uvula midline. No tripod positioning, muffled voice, soft palate or pharyngeal wall bulging NECK: Supple. No lymphadenopathy CHEST: Scattered faint wheezing. No respiratory distress, speaks in full sentences. HEART: Regular rate and rhythm. No murmur heard. SKIN: Warm, dry NEURO: Alert and oriented x3. PSYCH: Normal mood and affect Course Course Emergency Course: Patient is aware of diagnosis, understands and agrees to treatment plan. Anticipatory guidance given. Patient agrees to follow-up as directed and is aware of reasons to seek care at the emergency department. Portions of this record may have been created with voice recognition software Level of Care: Express Care Visit Vital Signs Vital signs: Vital Signs Temperature 98.4 F 06/19/24 17:33 Pulse Rate 83 06/19/24 17:33 Respiratory Rate 20 06/19/24 17:33 Blood Pressure 127/74 06/19/24 17:33 Pulse Oximetry 94 06/19/24 17:33 Oxygen Delivery Room Air 06/19/24 17:33 Temperature 98.4 F 06/19/24 17:33 Pulse Rate 83 06/19/24 17:33 Respiratory Rate 20 06/19/24 17:33 Blood Pressure 127/74 06/19/24 17:33 Pulse Oximetry 94 06/19/24 17:33 Oxygen Delivery Room Air 06/19/24 17:33 reviewed MDM - URI/Sore Throat MDM Narrative Medical decision making narrative: negative flu and COVID. Results reviewed with patient. Offered to send prescription for steroid, she states she thinks her special education paraeducator called and the steroid and antibiotic he just wanted her tested 1st. Discussed physical exam findings. Advised supportive measures and signs/symptoms to go to the ER. Pt is appropriate for outpt treatment and f/u. Differential Diagnosis Differential diagnosis: Likely upper respiratory infection, otitis media, sinusitis, viral infection, bronchitis, influenza and pharyngitis Discharge Plan Discharge Clinical Impression: Bronchitis Patient Disposition: Home, Self-Care Condition: Stable Instructions: Antibiotic Form, Acute Bronchitis (ED) Additional Instructions: Flu and COVID negative Take medication as directed Recommendations: Flonase spray and Zyrtec (or Claritin/Ciara) for sinus congestion over the counter Cough syrup may cause drowsiness; avoid driving or take it at night time. Tylenol 1000mg every 8 hours as needed for pain Symptomatic treatment includes: rest, fluids, and increase humidity of the air at home. Follow up with your primary care provider and/or special education paraeducator Go to the ER for worsening symptoms or concerns Patient Language: Gabonese Prescriptions: No Action dicyclomine [Bentyl] .ROUTE albuterol sulfate 90 mcg/actuation aerosol powdr breath activated 2 inh inhalation Q4-6H PRN magnesium oxide 400 mg magnesium capsule 400 mg PO BID hydrocodone-acetaminophen [Vicodin HP] 10-300 mg tablet 1 tablet PO Q4-6H PRN diltiazem HCl [Cartia XT] 300 mg capsule,extended release 24hr 300 mg PO DAILY magnesium oxide 500 mg capsule 500 mg PO BID dofetilide [Tikosyn] 500 mcg capsule 500 mcg PO ONCE paroxetine HCl [Paxil] 40 mg tablet 40 mg PO DAILY pravastatin 40 mg tablet 40 mg PO DAILY zolpidem [Ambien] 10 mg tablet PO Eliquis 5 mg tablet 5 mg PO BID omeprazole 40 mg capsule,delayed release(DR/EC) 40 mg PO DAILY mometasone 0.1 % cream 1 applic topical DAILY Follow-up/Referrals: CINDY,SILVANA Vitale M.D. [Primary Care Provider] - Time of Disposition: 18:06
[2024-06-19 18:03] LABS: EDCOVIDSCREEN Negative (Negative); EDINFLUASCREEN Negative (Negative); EDINFLUBSCREEN Negative (Negative)
== END 2024-06-19 18:09 | disposition home or self-care (01) ==
PROVIDERS: Emergency Provider Nurse Practitioner Family; PCP Internal Medicine Pulmonary Disease
DX: J40 Bronchitis, not specified as acute or chronic (principal); Z79.01 Long term (current) use of anticoagulants; K21.9 Gastro-esophageal reflux disease without esophagitis; Z95.0 Presence of cardiac pacemaker; Z20.822 Contact with and (suspected) exposure to COVID-19
CPT/HCPCS: 87426; 87804; 99212; G0463